=== PATIENT | male | born 1955 | race Caucasian/White ===

== ENCOUNTER 2018-12-11 18:55 | Emergency (ER) | payer OTHER, SELFPAY ==
[2018-12-11] VITALS (8 sets, daily range): BP systolic 131–156; BP diastolic 76–83; PULSE 66–78; RESP 16–26; TEMP 37; O2SAT 95–99; BMI 30.9
--- NOTE | 2018-12-11 19:05 | RAD_ITS ---
STUDY: X-RAY - RIGHT SHOULDER REASON FOR EXAM: Male, 63 years old. Fall TECHNIQUE: 2 view(s) of the shoulder. COMPARISON: None. FINDINGS: There is anterior dislocation of the humeral head relative to the glenoid. There is no fracture. Hypertrophic changes are present at the acromioclavicular joint. There are no radiodense foreign bodies. RAD/Shoulder min 2 Views IMPRESSION: Anterior dislocation of the humeral head. No fracture. Electronically Signed: Benigno Chan, at 19:23 EDT Tel , Service support ,
--- NOTE | 2018-12-11 19:07 | ED.DCSUM_ITS ---
History of Present Illness Chief Complaint: Disclocation Informant: Patient Occurred: Today Mechanism/Context: Injury - Right shoulder, Fall Current Severity: Mild Maximum Severity: Severe Worsened by: Attempt to move right upper extremity Relieved by: Remaining still with right upper extremity adductor and internally rotated Associated Symptoms: Loss of Funtion. Negative for: Parasthesia, Weakness Tetanus Immunization: 5-10 years Prior similar symptoms: No Recent Illness/Hospitalization: No - Past Medical History (1) No significant past medical history Status: Acute Past Medical History - Allergies and Home Meds Allergies/Adverse Reactions: Allergies No Known Allergies Allergy (Verified 12/11/18 18:55) Primary Care Physician: Juliet Woods MD [Primary Care Provider] - Ricci Junior DO [STAFF PHYSICIAN] - 5-7 Days Prior records reviewed: No Past Medical History: None Surgical History: no surgical history Lives: Spouse/ Significant Other Smoking Status: Never smoker Alcohol: None Drugs: None Review of Systems General: Denies: Chills, Fever, Sweats Eyes: Denies: Visual changes - bilaterally, Blurred Vision - bilaterally, Diplopia ENT: Denies: Rhinorrhea, Sore throat Cardiovascular: Denies: Chest pain, Palpitations, Heart racing Respiratory: Denies: Dyspnea, Cough, Dyspnea on exertion Gastrointestinal: Denies: Abdominal pain, Nausea, Vomiting, Diarrhea, Melena, Hematochezia Genitourinary: Denies: Dysuria, Hematuria, Frequency Musculoskeletal: Reports: Swelling, Extremity Pain. Denies: Myalgias, Arthralgias, Neck pain, Back pain Skin: Denies: Rash, Abrasions, Wounds Neurological: Denies: Headache, Weakness, Numbness Hematologic: Denies: Easy bruising, Easy bleeding Allergy: Denies: Uticaria, Swelling of the mouth, Swelling of the tongue Physical Exam Vital Signs/Narrative: Vital Signs Temp Pulse Resp BP Pulse Ox 12/11/18 18:58 156/81 H 12/11/18 18:56 98.6 F 69 16 98 Right Shoulder: Deformity, Limited ROM, - - Empty glenoid fossa.. Negative for: Abrasion, Contusion, Edema, Hematoma Left Shoulder: Negative for: Abrasion, Contusion, Deformity, Edema, Hematoma, Li mited ROM, - Right Humerus: Negative for: Abrasion, Contusion, Deformity, Edema, Hematoma, Limited ROM, - Left Humerus: Negative for: Abrasion, Contusion, Deformity, Edema, Hematoma, Limited ROM, - Right Elbow: Negative for: Abrasion, Contusion, Deformity, Edema, Hematoma, Limited ROM, - - There is no pain the patient over the lateral medial malleolus. There is no pain the patient over the olecranon process. Right Forearm: Negative for: Abrasion, Contusion, Deformity, Edema, Hematoma, Limited ROM, - Right Wrist: Negative for: Abrasion, Contusion, Deformity, Edema, Hematoma, Limited ROM, - Right Hand: Negative for: Abrasion, Contusion, Deformity, Edema, Hematoma, Limited ROM, - Right Finger: Negative for: Abrasion, Contusion, Deformity, Edema, Hematoma, Limited ROM, - General: Well nourished, Well developed Head: Normocephalic, Atraumatic. Negative for: Tenderness Eyes: Perrl, EOMI. Negative for: Pale conjunctiva, Scleral icterus, - ENT: No Trauma, Moist Mucous Membranes Neck: Nontender, Full ROM. Negative for: Spinal Tenderness, Paraspinal Tenderness Cardiovascular: Regular rate, Regular rhythm, No murmurs Respiratory: No distress, CTA bilaterally, Chest nontender Abdomen: Soft, Nontender, Nondistended, Normal bowel sounds Back: Nontender Skin: Normal color, No rash, No Trauma. Negative for: Cyanosis, Diaphoresis, Jaundice Neurological: Alert, Oriented x3, Cranial nerves II-XII grossly intact, Normal Strength, Normal Sensation, - - Sclerae, median, radial and ulnar function intact Psychological: Normal affect Diagnostic/Tx/Re-eval Chest X-Ray - ED: 2 View, Read by ED Physician, - - 2 view x-ray of the right shoulder reveals an anterior subcoracoid dislocation without evidence of fracture. There is arthritic changes of the AC joint. There is no widening of the AC joint nor is her fracture. 2 view postreduction x-ray of right shoulder reveals successful reduction. - Medical Decision Making She with deformity to right shoulder consistent with dislocation. No neurovascular findings. Patient did have something to drink at 1800. Patient was informed clinically his shoulder dislocated and will need reduction. He denies history of allergy to soy products or egg products. No history of sleep apnea. Patient was informed risk benefits of procedural sedation using propofol. He was informed he is at increased risk for nausea and vomiting however his shoulder needs to be reduced. Will premedicate. We will have him sign consent form for deep sedation using propofol and reduction of left shoulder dislocation. X-ray was obtained to confirm suspicion and to rule out fracture. Procedures Procedure(s): Patient was consented for deep procedural sedation with propofol. Patient states he received propofol for his colonoscopy and he had no complications. He denies allergy to soy products or egg products. He also was informed that his shoulder was dislocated would require reduction. Traction countertraction technique was used. Timeout was called. Patient did not de saturate during administration of propofol. He received a total of 150 mg. Once patient was sedated using traction countertraction technique the right anterior subcoracoid dislocation was reduced easily. Total time 2 minutes. He was observed in additional 3 minutes. He was placed in a sling and swath. Postreduction film was ordered. ED Disposition - Plan for ED Patient: Disposition: Home or Assisted Living Diagnosis: Closed anterior dislocation of right shoulder Instructions: DISLOCATION: SHOULDER (Reduced) Prescriptions: Hydrocodone Bitart/Apap 5-325 [Salome 5MG-325MG] 1 tab PO Q6H PRN PRN 3 Days #10 tab PRN Reason: Pain Prescription Printed Referrals: Juliet Woods MD [Primary Care Provider] - Ricci Junior DO [STAFF PHYSICIAN] - 5-7 Days Additional Instructions: There may be an associated rotator cuff tear. You were referred to orthopedics for follow-up.
[2018-12-11] MEDS: Ondansetron 4 MG/2 ML Vial IV (19:18)
[2018-12-11] MEDS: Propofol 200 MG/20 ML Vial IV BOLUS (19:21)
--- NOTE | 2018-12-11 19:37 | RAD_ITS ---
STUDY: X-RAY - RIGHT SHOULDER REASON FOR EXAM: Male, 63 years old. Post reduction TECHNIQUE: 2 view(s) of the shoulder. COMPARISON: X-ray right shoulder early the same day FINDINGS: There has been interval successful reduction of the glenohumeral joint. There is no acute fracture. Degenerative changes are present at the acromioclavicular joint. RAD/Shoulder min 2 Views IMPRESSION: Successful reduction of shoulder dislocation. Electronically Signed: Benigno Chan, at 19:59 EDT Tel , Service support ,
== END 2018-12-11 20:05 | disposition home or self-care (01) ==
PROVIDERS: Emergency Provider Emergency Medicine; Family Provider Family Medicine; PCP Family Medicine
DX: S43.014A Anterior dislocation of right humerus, initial encounter (principal); W19.XXXA Unspecified fall, initial encounter; Y93.9 Activity, unspecified
CPT/HCPCS: 23650; 73030; 96374; 99285; J7030; A4216; J2405

== ENCOUNTER → 2018-12-29 | Outpatient (CLI) | payer OTHER, SELFPAY ==
[2018-12-17 08:05] VITALS: BMI 30.9
--- NOTE | 2018-12-29 07:07 | MRI_ITS ---
STUDY: MRI RIGHT SHOULDER REASON FOR EXAM: Male, 63 years old. Shoulder pain, prior dislocation TECHNIQUE: Standardized fat and water weighted pulse sequences were obtained in all 3 orthogonal planes. COMPARISON: Radiographs 12/11/2018 FINDINGS: There is elevation of the humeral head in relationship to the acromion. There is joint effusion. There is focal increased T2 signal within the distal supraspinatus tendon without retraction. There may be a few posterior fibers still intact. There is increased T2 signal within the infraspinatus tendon without retraction.. The subscapularis tendon is intact. There is mild increased T2 signal within the adjacent soft tissues. There is deformity of anterior superior and anterior inferior labrum. There is irregularity of the anterior inferior glenoid cortex secondary to fracture, there is edema with increased T2 signal within the inferior glenoid. This represents a Bankart lesion. There is diffuse marrow edema with increased T2 signal within the humeral head with Hill-Sachs deformity. The edema extends inferiorly into the proximal diaphysis of the humerus. There is fluid within the bicipital tendon sheath. The bicipital tendon is likely intact.. There is mild AC joint osteoarthrosis. Tiny bony density adjacent to the distal clavicle degenerative or old trauma. There is compression on the supraspinatus muscle and tendon. 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
== END | disposition home or self-care (01) ==
LOC: MRI 07:06
PROVIDERS: Family Provider Family Medicine; PCP Family Medicine; Referring Provider Orthopaedic Surgery; Visit Provider Orthopaedic Surgery
DX: S43.004A Unspecified dislocation of right shoulder joint, initial encounter (principal)
CPT/HCPCS: 73221

== ENCOUNTER 2019-04-04 18:00 | Outpatient (RCR) | payer OTHER, SELFPAY ==
[2019-01-04 07:53] VITALS: BMI 30.9
--- NOTE | 2019-01-07 09:59 | HP.PTEVAL_ITS ---
Patient's Visit Information CALEB MASSEY is a 63 year old M referred to Physical Therapy by Ricci Junior DO with a diagnosis of R shoulder partial rotator cuff tear and laberal tear. Date of Evaluation: 01/07/19 Physical Therapist: Abdelrahman Ocampo, PT, ATC - Visit Plan Frequency: 2-3x /Week Duration: 4-6 Weeks Plan: R shoulder strengthening (rotator cuff), scapular stab ex's, overhead gladys, UBE, and HEP - Subjective Findings: Pt reports he injured his R shoulder 3 weeks ago. Pt reprts he was walking his dogs when he fell and dislocated his R shoulder. Pt reports he had an MRI which revealed a partial tear in his rotator cuff and an anterior labral tear. Pt reports he has progressively improved since his date of injury. Pt notes his ROM is steadily improving, but his pain is still bad. Pt reports sleep difficulty secondary to pain. Pt is R hand dominant. Pt reports he still has difficulty with overhead reaching at this time. Pt reports he still has altered sensation in his R hand from the fall. 1/10 pain at rest, 6/10 pain at worst (sleep and overhead reaching). 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 - Pain R shoulder dislocation Pain Intensity (Out of 10): 1 Pain Intensity Range: 6 - Objective Neuro: B UE sensation is WNL to light touch. B bicepital reflex= 2/3. Palpation: No pain with light touch or notable deformity present at this time. ROM: L shoulder flex= 150, abd= 150, ER= 20, IR WNL; R shoulder flex= 125, abd= 85, ER= 10, IR WNL. MMT: L shoulder is 5/5 throughout. R shoulder is 3/5 in available range and is painful with all testing. - Goals Goal 1:: Decrease R shoulder pain x 50% to aid with sleep Goal Time Frame: 4-6 Weeks Goal 2:: Increase R shoulder strength x 1 grade to aid with work requirements Goal Time Frame: 4-6 Weeks Goal 3:: Increase R shoulder abduction and flexion ROM x 30 degrees to aid with overhead reaching Goal Time Frame: 4-6 Weeks Goal 4:: I with HEP Goal Time Frame: 4-6 Weeks - Rehabilitation Potential Physical Therapy Diagnosis: R shoulder pain, weakness, and limited ROM secondary to R rotator cuff tear and labral tear Rehabilitation Potential: Good - Anticipated Interventions Patient/Client Instruction: Educate patient on: Condition, Plan of Care For the Purpose of:: To improve self management Therapeutic Exercise to Include: Strength training, Endurance training, Postural training, Flexibilty training, Active ROM, Scapular Strength/Stabilization For the Purpose of:: To decrease pain, To increase ROM, To improve muscle performance and motor function Cryotherapy (ice pack, ice massage): Yes For the Purpose of:: To decrease pain Thank you for the opportunity to evaluate your patient. For Medicare and Medicare HMO plans, please review the plan of care and approve it. It will need to be FAXED BACK to us at [phone] for Medicare purposes. For Medicare only, by signing this I certify the plan of care. Please let me know if there are questions or concerns regarding this plan of care. Physician Signature: Date:
--- NOTE | 2019-02-07 17:55 | HP.PTREVAL ---
Ricci Junior, DO, It has been my pleasure to treat CALEB MASSEY over the last 7 visits for R shoulder partial rotator cuff tear and laberal tear. Please see the progress note below for an update on the physical therapy plan of care! Subjective: Pt reports no pain at rest today. 9/10 when pain is at its worst Objective/Function: R shoulder pain ranges 0-9/10. R shoulder MMT: 3+/5 in available range. R shoulder ROM: flex= 135, abd= 105, ER= 107, IR WNL. Pt is I with HEP. Rx goals were partially achieved Plan Plan: Discontinue or continue pending visit next week. Goals Goal 1:: Decrease R shoulder pain x 50% to aid with sleep Goal Time Frame: 4-6 Weeks Goal Progress: Goal Met Goal 2:: Increase R shoulder strength x 1 grade to aid with work requirements Goal Time Frame: 4-6 Weeks Goal Progress: Progressing Goal 3:: Increase R shoulder abduction and flexion ROM x 30 degrees to aid with overhead reaching Goal Time Frame: 4-6 Weeks Goal Progress: Progressing Goal 4:: I with HEP Goal Time Frame: 4-6 Weeks Goal Progress: Goal Met Anticipated Interventions Patient/Client Instruction: Educate patient on: Condition, Plan of Care For the Purpose of:: To improve self management Therapeutic Exercise to Include: Strength training, Endurance training, Postural training, Flexibilty training, Active ROM, Scapular Strength/Stabilization For the Purpose of:: To decrease pain, To increase ROM, To improve muscle performance and motor function Cryotherapy (ice pack, ice massage): Yes For the Purpose of:: To decrease pain Please do not hesitate to contact me at [phone] by phone or if you have questions or concerns regarding this new plan of care! Sincerely, Abdelrahman Ocampo, PT, ATC
--- NOTE | 2019-04-04 18:21 | HP.PTDCSUM ---
HP - PT D/C Summary It has been my pleasure to treat CALEB MASSEY under orders from Ricci Junior DO, for the diagnosis of R shoulder partial rotator cuff tear and laberal tear for a total of 16 visit(s). Discharge Date: Please see the following information for a summary of their discharge status. - Subjective Subjective: intermittent pain now. When it comes, it doesnt last as long - Pain R shoulder dislocation Pain Intensity (Out of 10): 0 - Overall Improvement % Improvement: 70 - Objective Objective/Function: R shoulder pain ranges now from 0-3/10. R shoulder ROM: flex= 135, abd= 125, ER= 45. R shoulder MMT: 5/5 throughout with exception to ER= 4/5. I with HEP. Rx goals achieved - Goals Goal 1:: Decrease R shoulder pain x 50% to aid with sleep Goal Progress: Goal Met Goal 2:: Increase R shoulder strength x 1 grade to aid with work requirements Goal Progress: Progressing Goal 3:: Increase R shoulder abduction and flexion ROM x 30 degrees to aid with overhead reaching Goal Progress: Progressing Goal 4:: I with HEP Goal Progress: Goal Met - Plan Plan: Discharge - D/C Information If there are questions or concerns regarding this patient's physical therapy, please feel free to call me at [phone]. Thank you for the referral of this patient. Sincerely, Abdelrahman Ocampo, PT, ATC
== END 2019-04-04 19:00 | disposition home or self-care (01) ==
LOC: PT 18:00
PROVIDERS: Family Provider Family Medicine; PCP Family Medicine; Referring Provider Orthopaedic Surgery; Visit Provider Orthopaedic Surgery
DX: M75.110 Incomplete rotator cuff tear or rupture of unspecified shoulder, not specified as traumatic (principal); S43.006D Unspecified dislocation of unspecified shoulder joint, subsequent encounter; S43.499D Other sprain of unspecified shoulder joint, subsequent encounter
CPT/HCPCS: 97110; 97161; 97530

== ENCOUNTER 2020-07-14 09:28 | Outpatient (RCR) | payer OTHER, SELFPAY ==
[2019-04-05 08:08] VITALS: BMI 30.9
[2020-07-14] MEDS: COVID-19 VACC, MRNA(PFIZER)/PF 30 MCG/0.3 ML SYRINGE IM (09:27)
[2020-08-04] MEDS: COVID-19 VACC, MRNA(PFIZER)/PF 30 MCG/0.3 ML SYRINGE IM (09:19)
== END 2020-10-06 23:59 ==
LOC: IMMUN 09:28
PROVIDERS: PCP Family Medicine; Visit Provider Family Medicine
DX: Z23 Encounter for immunization (principal)
CPT/HCPCS: 0001A; 0002A; 91300

== ENCOUNTER → 2023-02-18 | Outpatient (CLI) | payer MEDICARE, OTHER, SELFPAY ==
[2023-02-18 09:08] LABS: Cholesterol 297 mg/dL (200); High Density Lipoprotein 57 mg/dL; PSA,Total - Annual Screen 1.52 ng/mL (0.00-4.00); Triglycerides 83 mg/dL; Very Low Density Lipoprotein 17 mg/dL (5-40)
== END | disposition home or self-care (01) ==
PROVIDERS: PCP Family Medicine; Referring Provider Family Medicine; Visit Provider Family Medicine
DX: Z00.00 Encounter for general adult medical examination without abnormal findings (principal); E78.00 Pure hypercholesterolemia, unspecified
CPT/HCPCS: 36415; 80061; 84153; G0103

== ENCOUNTER → 2023-03-18 | Outpatient (CLI) | payer MEDICARE, OTHER, SELFPAY ==
[2023-03-18 10:06] LABS: Anion Gap 1 (5-15); BUN 20 mg/dL (7-18); BUN/Creat Ratio 20.3 RATIO (10-20); Calcium,Total 8.5 mg/dL (8.5-10.1); Chloride 107 mmol/L (98-107); Creatinine, Serum 0.98 mg/dL (0.70-1.30); EST Glomerular Filtration Rate 81 mL/min (>60); Est Glom Filt Rate - Afr Amer 98 mL/min (>60); Glucose 94 mg/dL (74-106); Potassium 4.7 mmol/L (3.5-5.1); Sodium Level 138 mmol/L (136-145)
[2023-03-18 10:10] LABS: Hemoglobin A1c 5.3 % (3.8-5.6)
== END | disposition home or self-care (01) ==
LOC: LAB 08:58
PROVIDERS: PCP Family Medicine; Visit Provider Family Medicine
DX: Z13.1 Encounter for screening for diabetes mellitus (principal)
CPT/HCPCS: 36415; 80048; 83036

== ENCOUNTER → 2024-07-30 | Outpatient (CLI) | payer MEDICARE, OTHER, SELFPAY ==
[2024-07-30 21:44] LABS: Cholesterol 265 mg/dL (<=200); High Density Lipoprotein 54 mg/dL; Low Density Lipoprotein Calc. 192 mg/dL; PSA,Total - Annual Screen 1.32 ng/mL (0.02-4.00); Triglycerides 93 mg/dL; Very Low Density Lipoprotein 19 mg/dL (5-40); cholesterol:hdl ratio screen 4.87
== END | disposition home or self-care (01) ==
LOC: MTLAB 14:21
PROVIDERS: PCP Family Medicine; Referring Provider Family Medicine; Visit Provider Family Medicine
DX: E78.00 Pure hypercholesterolemia, unspecified (principal); Z12.5 Encounter for screening for malignant neoplasm of prostate
CPT/HCPCS: 36415; 80061; 84153; 84443; G0103

== ENCOUNTER → 2024-12-12 | Outpatient (CLI) | payer MEDICARE, OTHER, SELFPAY ==
[2024-12-12 18:06] LABS: Hematocrit 41.1 % (40-54); Hemoglobin 13.8 g/dL (13.0-16.5); Immature Granulocytes Count 0.030 X10^3/uL (0.0-0.0); Mean Corp Hgb Conc 33.6 g/dL (32-36); Mean Corpuscular Volume 91.5 fL (80-94); Mean Platelet Vol. 11.2 fl (6.2-12.0); NRBC Flagged by Analyzer 0 % (0-5); Platelet Count 266 K/mm3 (150-450); RBC Distribution Width CV 12.7 % (11.6-14.6); RBC Distribution Width SD 42.8 fl (35.1-43.9); Red Blood Count 4.49 M/mm3 (4.6-6.2); White Blood Count 6.6 K/mm3 (4.4-11.0)
[2024-12-12 18:28] LABS: AST(SGOT) 22 U/L (<=37); Alanine Aminotransfer ALT/SGPT 22 U/L (<=46); Albumin, Serum 4.3 g/dL (3.4-4.8); Alkaline Phosphatase 48 U/L (40-129); Anion Gap 13 (5-15); BUN 22 mg/dL (4-19); BUN/Creat Ratio 21.5 RATIO (10-20); Calcium,Total 9.4 mg/dL (7.6-11.0); Carbon Dioxide 22.9 mmol/L (21.0-32.0); Chloride 104 mmol/L (98-108); Globulin 2.8 g/dL (2.2-4.2); Glucose 94 mg/dL (70-99); Potassium 4.3 mmol/L (3.3-5.1)
[2024-12-12 18:49] LABS: Amylase 68 U/L (28-100); Lipase 38 U/L (13-75)
== END | disposition home or self-care (01) ==
LOC: MFPLAB 15:32
PROVIDERS: Visit Provider Family Medicine
DX: R10.9 Unspecified abdominal pain (principal)
CPT/HCPCS: 36415; 80053; 82150; 83690; 85025

== ENCOUNTER → 2024-12-23 | Outpatient (CLI) | payer MEDICARE, OTHER, SELFPAY ==
--- NOTE | 2024-12-23 17:26 | CT_ITS ---
PROCEDURE: ABDOMEN/PELVIS WITH CONTRAST 12/23/2024 REASON FOR EXAM: HERNIA TECHNIQUE: ABDOMEN/PELVIS WITH CONTRAST Coronal and Sagittal reconstruction series were provided. CONTRAST: Isovue-300 VOLUME: 100 mL One or more dose reduction techniques were used (e.g., Automated exposure control, adjustment of the mA and/or kV according to patient size, use of iterative reconstruction technique. RADIATION DOSE SUMMARY: CTDlvol: 13 mGy DLP: 1102 mGycm COMPARISON: None FINDINGS: Lung bases: The lung bases are clear. Liver: Normal size. No mass. Gallbladder: Gallbladder is contracted. Spleen: Normal size. Pancreas: Normal size without evidence of mass surrounding inflammation or ductal dilation. Adrenals: I suspect a 1.2 cm left adrenal adenoma. Kidneys: Cysts are seen in the anterior upper and midpole of the right kidney. The largest cyst measures 4.2 cm. Punctate nonobstructive calculus in the mid anterior pole of the left kidney. Bladder: Mild degree of diffuse bladder wall thickening. Central prostatic calcifications. Bowel: Colonic diverticulosis without diverticulitis. Appendix: The appendix is not identified. There is no inflammatory process identified in the right lower quadrant to suggest appendicitis. Lymph nodes: Unremarkable. Vasculature: Mild diffuse atherosclerotic calcifications are noted. Peritoneum / Retroperitoneum: Bilateral inguinal hernias containing fat slightly larger on the left side. Bones: Degenerative changes of the spine. CT/Abdomen/Pelvis WITH Contrast IMPRESSION: Bilateral inguinal hernias containing fat larger on the left side. Sigmoid diverticulosis. Mild degree of bladder wall thickening. Questionable 1.2 cm left adrenal adenoma. Right renal cysts. Tiny nonobstructive left intrarenal calculus. Reading Location: [id number]
== END | disposition home or self-care (01) ==
LOC: CT 17:25
PROVIDERS: PCP Family Medicine; Referring Provider Family Medicine; Visit Provider Family Medicine
DX: K42.9 Umbilical hernia without obstruction or gangrene (principal)
CPT/HCPCS: 74177; Q9967

== ENCOUNTER 2025-01-13 07:12 | Day surgery (SDC) | payer MEDICARE, OTHER, SELFPAY ==
--- NOTE | 2025-01-01 06:35 | EKG12_ITS ---
Test Reason : PREOP Blood Pressure : */* mmHG Vent. Rate : 61 BPM Atrial Rate : 61 BPM P-R Int : 146 ms QRS Dur : 92 ms QT Int : 414 ms P-R-T Axes : 37 -33 34 degrees QTcB Int : 416 ms Normal sinus rhythm Left axis deviation Abnormal ECG Confirmed by Uziel Alvarado ([id number]), photo editor OLIVA POZO ([id number]) on 01/01/2025 1:19:16 PM Referred By: Ganesh Watkins Confirmed By: Uziel Alvarado
--- NOTE | 2025-01-01 09:03 | PAT.ANE_ITS ---
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 When Was Last Pacemaker Check QUESTION #4 FULL TEXT: You/Your Family Experience fever (hyperthermia) with Anesthesia Last Oral Intake Last Oral intake: Last Oral Intake NPO since Meds taken in AM with sips of water? Meds patient instructed to take am of surgery PONV PONV - machine fur cleaner: PONV - machine fur cleaner Female No 12/27/24 14:58 HX of Motion Sickness No 12/27/24 14:58 HX of N/V After Surgery No 12/27/24 14:58 Non-Smoker Yes 12/27/24 14:58 Duration of Surgery greater Yes 12/27/24 14:58 than 60 minutes Number of Risk Factors 2 12/27/24 14:58 PONV Score Moderate Risk 12/27/24 14:58 Height & Weight Height & Weight: Anesthesia: Height & Weight Height 5 ft 8 in 12/25/24 07:59 Respiratory Assessment Respiratory Assessment - machine fur cleaner: Respiratory Tract Infection Hx - machine fur cleaner Hx Respiratory Tract Infection No 12/27/24 14:58 STOP Sleep Apnea STOP Sleep Apnea - machine fur cleaner: STOP Sleep Apnea - machine fur cleaner Hx Hypertension No 12/27/24 14:58 Hx Sleep Apnea No 12/27/24 14:58 CPAP BIPAP Do you snore loudly (louder Yes 12/27/24 14:58 than talking or can be heard Do you often feel tired/ No 12/27/24 14:58 fatigued/ sleepy during daytime? Has anyone observed you stop Yes 12/27/24 14:58 breathing during sleep? STOP Results Positive 12/27/24 14:58 QUESTION #5 FULL TEXT : Do you snore loudly (louder than talking or can be heard through closed doors)? Tobacco Use History Tobacco Use History - machine fur cleaner: Tobacco Use History - machine fur cleaner Tobacco Use Smoking Status Never smoker 12/27/24 14:58 Hx Tobacco Use No 12/27/24 14:58 Years Smoking Packs Smoked per Day Smoking Cessation Date was within the last 15 years Hx Smoking Cessation Date Hx Smoking Cessation Counseling Hematologic Medial History Hematologic Hx - machine fur cleaner: Hematologic Medical Hx - vp of technology Hx of Blood Transfusion No 12/27/24 14:58 Hx of Transfusion in last 3 No 12/27/24 14:58 Months Date of Last Transfusion (if within last 3 months) Ever experience any problems No 12/27/24 14:58 with transfusion(s)? Specify any problems Hx of Preganancy in last 3 N/A 12/27/24 14:58 Months Nurse Filling Out Transfusion BAMBI 12/27/24 14:58 & Questions: Date: 12/27/24 12/27/24 14:58 Time: 15:00 12/27/24 14:58 Patient unable to answer at this time (ie. confused, unrespo /Reproduction History /Reproductive History - machine fur cleaner: /Reproductive Hx- machine fur cleaner Hx Now No 12/27/24 14:58 Gestational Age (in weeks): EDC: Hx Hx Para Hx [facility]24 [facility] History (Updated 12/27/24 @ 15:08 by Janay Burris) Wears glasses Alcohol use Arthritis High cholesterol Restless legs History of diverticulosis Non-smoker Leg cramps History of stress test Left inguinal hernia Umbilical hernia Anxiety Home Medications ?Medication ?Instructions ?Recorded ?Last Taken ?Type multivitamin with folic acid 400 1 tab PO DAILY Unknown History mcg tablet coenzyme Q10 75 mg capsule (Ultra 75 mg PO QDAY 12/25/24 History CoQ10) lutein 20 mg capsule 20 mg PO QDAY 12/25/2412/25 History magnesium 200 mg tablet 200 mg PO QDAY 12/25/2411/30 History Allergy/AdvReac Type Severity Reaction Status Date / Time No Known Allergies Allergy Verified 12/27/24 14:54 Family History (Updated 12/25/24 @ 07:59 by Alexia Barraza) Mother Diabetes CAD (coronary artery disease) Grandfather Diabetes Surgical History (Updated 12/27/24 @ 14:58 by Janay Burris) History of colonoscopy Status post surgery Social History (Updated 12/25/24 @ 07:59 by Alexia Barraza) Smoking Status: Never smoker alcohol intake: current Audit: Pertinent Findings Pertinent Findings EKG Perinent findings: 01/01/25: Normal sinus rhythm Left axis deviation Abnormal ECG No previous ECGs available Recommendation Anesthesia Recommendation Anesthesia recommendation: OPTIMIZED for anesthesia
[2025-01-13] VITALS (8 sets, daily range): BP systolic 111–158; BP diastolic 68–82; PULSE 69–74; RESP 16; TEMP 36.3–37.1; O2SAT 97–100; BMI 29.3
--- OUTSIDE RECORDS SUMMARY | 2025-01-13 07:30 | XMS RPT_ITS | CCD ---
Author Organization [facility] Care Team Providers Care Granulizing Machine Operator Name Role Phone Peggy BRANTLEY, Dr. Juliet Almendarez Primary Care Provider Peggy BRANTLEY, Dr. Juliet Almendarez Attending Provider Peggy BRANTLEY, Dr. Jluiet Almendarez Referring Provider Cain Moore MD Attending Provider [phone] Cian Moore MD Primary Care Provider Oscar BRANTLEY, Cain Referring Provider Roland BRANTLEY, Dr. Andersen Attending Provider [phone] Cain Moore Attending Unavailable Ganesh Watkins Attending Unavailable Ganesh Watkins Referring Unavailable Cain Moore Primary Care Unavailable Ganesh Watkins Attending Unavailable Cain Moore Primary Care Unavailable Cain Moore Referring Unavailable Caleb Alvarado Attending Unavailable Ganesh Watkins Referring Unavailable Cain Moore Primary Care Unavailable Juliet Woods Primary Care Unavailable Juliet Woods Attending Unavailable Juliet Woods Referring Unavailable Cain Moore Primary Care Unavailable Cain Moore Attending Unavailable Cain Moore Referring Unavailable Medications Current Medications Medication Drug Class(es) Dates Sig (Normalized) Sig (Original) lutein 20 mg oral capsule (2 sources) Start: 12-25-2024 take 1 capsule by mouth once daily Lutein 20 mg capsule Active 20 mg PO daily December 25, 2024 12:00am give with meal/snack Magnesium (2 sources) Start: 12-25-2024 take 1 tablet by mouth once daily Magnesium 200 mg tablet Active 200 mg PO daily December 25, 2024 12:00am Multivitamin With Folic Acid (2 sources) Start: 12-11-2018 take 1 tablet by mouth once daily Multivitamin With Folic Acid Active 1 TABLET PO DAILY December 10, 2018 11:00pm Start: 12-11-2018 take 1 tablet by xiomy th once daily Multivitamin With Folic Acid Active 1 TABLET PO DAILY December 11, 2018 12:00am Multivitamin With Folic Acid 1 TABLET tablet (4 sources) Start: 12-11-2018 take 1 tablet by mouth once daily Multivitamin With Folic Acid 1 TABLET tablet Active 1 {tbl} PO DAILY December 11, 2018 12:00am ubidecarenone 75 mg oral capsule (2 sources) Start: 12-25-2024 Coenzyme Q10 ( Ultra Coq10) 75 mg capsule Active 75 mg PO daily December 25, 2024 12:00am Completed/Discontinued Medications Medication Drug Class(es) Dates Sig (Normalized) Sig (Original) acetaminophen 325 mg / HYDROcodone bitartrate 5 mg oral tablet (6 sources) Opioid Agonist Start: 12-11-2018 End: 12-15-2018 Hydrocodone-Acetami nophen 1 TABLET tablet Discontinued 1 {tbl} PO EVERY 6 HOURS NEEDED as needed for Pain 10 3 0 December 11, 2018 December 13, 2018 12:00am December 15, 2018 12:08am Closed anterior dislocation of right shoulder Anterior dislocation of right humerus, initial encounter Start: 12-11-2018 End: 12-15-2018 take 1 tablet by mouth every six hours as needed Hydrocodone-Acetaminophen Discontinued 1 TABLET PO EVERY 6 HOURS NEEDED 10 3 December 11, 2018 December 14, 2018 11:08pm loratadine 10 mg oral tablet (6 sources) Start: 12-11-2018 End: 12-25-2024 take 1 tablet by mouth once daily as needed Loratadine 10 MG tablet Discontinued 10 mg PO DAILY as needed for Allergies December 11, 2018 12:00am December 25, 2024 8:00am Problems Problem Classification Problem Date Documented Da te Episodic/Chronic Abdominal hernia (10 sources) Umbilical hernia; Translations: [Umbilical hernia without obstruction or gangrene] Onset: 12-25-2024 12-25-2024 Episodic Abdominal pain (1 source) Unspecified abdominal pain; Translations: [Unspecified abdominal pain] Onset: 12-16-2024 Episodic Anxiety disorders (2 sources) Anxiety; Translations: [Anxiety disorder, unspecified] 12-25-2024 Chronic Disorders of lipid metabolism (1 source) Pure hypercholesterolemi a, unspecified; Translations: [Pure hypercholesterolemi a, unspecified] Onset: 08-03-2024 Chronic Joint disorders and dislocations; trauma-related (6 sources) Anterior dislocation of shoulder joint; Translations: [Anterior dislocation of right humerus, initial encounter] 12-12-2018 Episodic Unclassified (6 sources) No history of clinical finding in subject; Translations: [No significant past medical history] 12-11-2018 Results Test Name Value Interpretation Reference Range Facility 12 Lead EKGon 01-01-2025 12 Lead EKG [facility] [address] [place] [address] 12 Lead EKG 01/01/25 0640 MR#: [id number] Acct: [id number] Name: CALEB MASSEY Rep #: [id number] : 1955 69 From: Caleb Alvarado MD Attending Dr: Dr. Ganesh Watkins MD Status: PRE [facility] Ordering Dr: Jaskaran Thompson MD Date: 01/01/25 Location: [facility] Sex: M C Admitted: Test Reason : PREOP Blood Pressure : */* mmHG Vent. Rate : 61 BPM Atrial Rate : 61 BPM P-R Int : 146 ms QRS Dur : 92 ms QT Int : 414 ms P-R-T Axes : 37 -33 34 degrees QTcB Int : 416 ms Normal sinus rhythm Left axis deviation Abnormal ECG Confirmed by Caleb Alvarado ([id number]), graphics editor OLIVA POZO ([id number]) on 01/01/2025 1:19:16 PM Referred By: Ganesh Watkins Confirmed By: Caleb Alvarado 01/01/25 1319 Date Caleb Alvarado MD CC: Dr. Ganesh Watkins MD; Dr. Jaskaran Thompson MD; Dr. Cain Moore MD Signed [facility] MR/PAT.Mk 01-01-2025 MR/PAT.[facility] Medical Records Department [address] [place] [address] PAT - Anesthesia 01/01/25 0903 MR#: [id number] Acct: [id number] Name: CALEB MASSEY Rep #: [id number] : 1955 69 From: Jaskaran Thompson MD PCP: Dr. Cain Moore MD Status:PRE [facility] Y Race: C Location: [facility] Pre-Assessment Diagnosis/Proposed Procedure Planned Operative Procedure(s): (L) Lap Robotic Left Inguinal Hernia w/mesh poss bilateral open umbilical hernia Anesthesia History Anesthesia History - shoe caser: Anesthesia History - shoe caser Hx Hospitalization No 12/27/24 14:58 Any Problems With Anesthesia No 12/27/24 14:58 Cholinesterase deficiency No 12/27/24 14:58 You/Your Family Experience No 12/27/24 14:58 fever (hyperthermia) with Relationship Recent Exposure to Contagious Disease Does patient have nerve No 12/27/24 14:58 stimulator Patient instructed to have device shut off --Does patient have Pacemaker or ICD? When Was Last Pacemaker Check QUESTION #4 FULL TEXT: You/Your Family Experience fever (hyperthermia) with Anesthesia Last Oral Intake Last Oral intake: Last Oral Intake NPO since Meds taken in AM with sips of water? Meds patient instructed to take am of surgery PONV PONV - shoe caser: PONV - shoe caser Female No 12/27/24 14:58 HX of Motion Sickness No 12/27/24 14:58 HX of N/V After Surgery No 12/27/24 14:58 Non-Smoker Yes 12/27/24 14:58 Duration of Surgery greater Yes 12/27/24 14:58 than 60 minutes Number of Risk Factors 2 12/27/24 14:58 PONV Score Moderate Risk 12/27/24 14:58 Height Weight Height Weight: Anesthesia: Height Weight Height 5 ft 8 in 12/25/24 07:59 Respiratory Assessment Respiratory Assessment - shoe caser: Respiratory Tract Infection Hx - shoe caser Hx Respiratory Tract Infection No 12/27/24 14:58 STOP Sleep Apnea STOP Sleep Apnea - shoe caser: STOP Sleep Apnea - shoe caser Hx Hypertension No 12/27/24 14:58 Hx Sleep Apnea No 12/27/24 14:58 CPAP BIPAP Do you snore loudly (louder Yes 12/27/24 14:58 than talking or can be heard Do you often feel tired/ No 12/27/24 14:58 fatigued/ sleepy during daytime? Has anyone observed you stop Yes 12/27/24 14:58 breathing during sleep? STOP Results Positive 12/27/24 14:58 QUESTION #5 FULL TEXT : Do you snore loudly (louder than talking or can be heard through closed doors)? Tobacco Use History Tobacco Use History - shoe caser: Tobacco Use History - shoe caser Tobacco Use Smoking Status Never smoker 12/27/24 14:58 Hx Tobacco Use No 12/27/24 14:58 Years Smoking Packs Smoked per Day Smoking Cessation Date was within the last 15 years Hx Smoking Cessation Date Hx Smoking Cessation Counseling Hematologic Medial History Hematologic Hx - shoe caser: Hematologic Medical Hx - fig washer Hx of Blood Transfusion No 12/27/24 14:58 Hx of Transfusion in last 3 No 12/27/24 14:58 Months Date of Last Transfusion (if within last 3 months) Ever experience any problems No 12/27/24 14:58 with transfusion(s)? Specify any problems Hx of Preganancy in last 3 N/A 12/27/24 14:58 Months Nurse Filling Out Transfusion BAMBI 12/27/24 14:58 Questions: Date: 12/27/24 12/27/24 14:58 Time: 15:00 12/27/24 14:58 Patient unable to answer at this time (ie. confused, unrespo /Reproduct ion History /Reproduct shagufta History - shoe caser: /Reproduct shagufta Hx- shoe caser Hx Now No 12/27/24 14:58 Gestational Age (in weeks): EDC: Hx Hx Para Hx Section SAB No 12/27/24 14:58 PFSH Medical History (Updated 12/27/24 @ 15:08 by Janay Burris) Wears glasses Alcohol use Arthritis High cholesterol Restless legs History of diverticulosis Non-smoker Leg cramps History of stress test Left inguinal hernia Umbilical hernia Anxiety Home Medications ???Medication ???Instructions ???Recorded ???Last Taken ???Type multivitamin with folic acid 400 1 tab PO DAILY 12/11/18 Unknown Hi story mcg tablet coenzyme Q10 75 mg capsule (Ultra 75 mg PO QDAY 12/25/24 12/25/24 H istory CoQ10) lutein 20 mg capsule 20 mg PO QDAY 12/25/24 12/25/24 Hi story magnesium 200 mg tablet 200 mg PO QDAY 12/25/24 12/25/24 H istory Allergy/AdvReac Type Severity Reaction Status Date / Time No Known Allergies Allergy Verified 12/27/24 14:54 Family History (Updated 12/25/24 @ 07:59 by Alexia Barraza) Mother Diabetes CAD (coronary artery disease) Grandfather Di (more content not included)... Normal [facility] Surgery Visit Reporton 12-25 Surgery Visit Report [facility] [address] [place] [address] OFFICE VISIT Date of Service: 12/25/24 MR#: [id number] Acct: [id number] Name: CALEB MASSEY Rep #: [id number] : 1955 Provider: Dr. Ganesh daly MD Age/Sex: 69/M Location: [facility] Status: Signed Intake Vital Signs 12/25/24 07:59 Height 5 ft 8 in Weight: 180 lb BMI 27.3 BP 165/75 H Blood Pressure Location Rt brachial Position Sitting Respiration 16 Intake Visit Reasons: UMBILICAL HERNIA Chief Complaint: umbilical hernia Cylinder Dyer Required: No Is patient in pain?: No Allergies No Known Allergies Allergy (Verified 12/25/24 08:00) Medications ???Medication ???Instructions ???Recorded ???Confirmed ???Type multivitamin with folic acid 400 1 tab PO DAILY 12/11/18 01/04/19 H istory mcg tablet coenzyme Q10 75 mg capsule (Ultra 75 mg PO QDAY 12/25/24 12/25/24 H istory CoQ10) lutein 20 mg capsule 20 mg PO QDAY 12/25/24 12/25/24 Hi story magnesium 200 mg tablet 200 mg PO QDAY 12/25/24 12/25/24 H istory Have you fallen in the past year?: No PFSH Medical History (Updated 12/25/24 @ 07:53 by Alexia Barraza) Left inguinal hernia Umbilical hernia Anxiety Surgical History (Updated 12/25/24 @ 07:58 by Alexia Barraza) Status post surgery Family History (Updated 12/25/24 @ 07:59 by Alexia Barraza) Mother Diabetes CAD (coronary artery disease) Grandfather Diabetes Social History (Updated 12/25/24 @ 07:59 by Alexia Barraza) Smoking Status: Never smoker alcohol intake: current HPI HPI HPI: Patient is a 69-year-old male who comes in with a left inguinal hernia as well as an umbilical hernia. He reports that sneezing or coughing hurts his left groin. He does not have any symptoms from the umbilical hernia. ROS General General: No weight change, appetite, fatigue, colon cancer, breast cancer or weakness HEENT HEENT: No difficulty swallowing, eye injury, eye surgery, swollen glands or hoarseness Endo Endocrine: No thyroid disease, diabetes mellitus, thyroid cancer, Hair loss, heat intolerance or cold intolerance Skin Skin: No rash or changing moles Breast Breast: No left breast lump, right breast lump, nipple discharge, breast pain, abnormal mammogram, abnormal US or breast enlargement Musc Musculoskeletal: No back problems, arthritis, rheumatoid arthritis, gout or joint pain Cardio Cardiovascular: No murmur, pacemaker, heart disease, atrial fibrillation, high blood pressure, heart attack, heart stent, palpitations, shortness of breath with exertion or chest pain Psych Psychiatric: Yes anxiety; No depression or hearing voices Resp Respiratory: No shortness of breath, No sleep apnea, No cough, No COPD, No asthma, No emphysema and No wheezing Gastro Gastrointestinal: Yes abdominal pain, No nausea or vomiting, No diarrhea, No constipation, No blood in stool, No acid reflux, Yes hemorrhoids, No ulcers, No gallbladder problem and No black,tarry stools Ramirez Hematologic: No blood thinners, No blood disorders, No bleeding, No anemia and No blood clots Neuro Neurologic: No system reviewed and no additional complaints, except as documented, No as per HPI, No abnormal gait, No abnormal hearing, No abnormal movements, No abnormal speech, No behavioral kim es, No burning sensations, No confusion, No convulsions, No disequilibrium, No dizziness, No localized weakness, No frequent falls, No headache(s), No lack of coordination, No loss of vision, No memory loss, No numbness, No other visual disturbances, No radicular pain, No restless legs, No sensory deficit, No syncope, No tingling, No tremor(s), No weakness and No other Exam Const General: cooperative Orientation: alert and oriented x3 [facility] Head: normal to inspection Neck Neck: normal visual inspection and full ROM Chest Chest palpation inspection: normal inspection of the chest Resp Effort Inspection: normal respiratory effort Auscultation: clear to auscultation bilaterally Cardio Rate: regular rate Rhythm: regular rhythm GI Inspection: non-distended Palpation: soft, hernia indirect inguinal on the left and umbilical and nontender Skin General: no rashes or lesions noted Neuro General: patient alert and patient oriented x3 Extrem General: full ROM Psych Appearance: grossly normal Mental Status: mental status grossly normal Assessment and Plan Assessment and Plan (1) Left inguinal hernia: Status: Acute Plan: The patient has a left inguinal hernia which is reducible. I do feel a small hernia on the right as well. I discussed robotic assisted laparoscopic left inguinal hernia repair with mesh. I discussed the procedure as well as the risks including but not limited to bleeding, inf (more content not included)... Normal [facility] Abdomen/Pelvis WITH Contrast on 12-23-2024 Abdomen/Pelvis WITH Contrast [facility] Imaging Services [address] [place] [address] [id number] Abdomen/Pelvis WITH Contrast MR#: [id number] Acct: [id number] Name: CALEB MASSEY Rep #: [id number] : 1955 M 69 From: Jeremy yeung MD PCP: Dr. Cain Moore MD Status: REG CL Study: Abdomen/Pelvis WITH Contrast Date of Exam: Exam# [id number] Ordering Dr: Cain Moore MD PROCEDURE: ABDOMEN/PELVIS WITH CONTRAST 12/23/2024 REASON FOR EXAM: HERNIA TECHNIQUE: ABDOMEN/PELVIS WITH CONTRAST Coronal and Sagittal reconstruction series were provided. CONTRAST: Isovue-300 VOLUME: 100 mL One or more dose reduction techniques were used (e.g., Automated exposure control, adjustment of the mA and/or kV according to patient size, use of iterative reconstruction technique. RADIATION DOSE SUMMARY: CTDlvol: 13 mGy DLP: 1102 mGycm COMPARISON: None FINDINGS: Lung bases: The lung bases are clear. Liver: Normal size. No mass. Gallbladder: Gallbladder is contracted. Spleen: Normal size. Pancreas: Normal size without evidence of mass surrounding inflammation or ductal dilation. Adrenals: I suspect a 1.2 cm left adrenal adenoma. Kidneys: Cysts are seen in the anterior upper and midpole of the right kidney. The largest cyst measures 4.2 cm. Punctate nonobstructive calculus in the mid anterior pole of the left kidney. Bladder: Mild degree of diffuse bladder wall thickening. Central prostatic calcifications. Bowel: Colonic diverticulosis without diverticulitis. Appendix: The appendix is not identified. There is no inflammatory process identified in the right lower quadrant to suggest appendicitis. Lymph nodes: Unremarkable. Vasculature: Mild diffuse atherosclerotic calcifications are noted. Peritoneum / Retroperitoneum: Bilateral inguinal hernias containing fat slightly larger on the left side. Bones: Degenerative changes of the spine. CT/Abdomen/Pelvis WITH Contrast IMPRESSION: Bilateral inguinal hernias containing fat larger on the left side. Sigmoid diverticulosis. Mild degree of bladder wall thickening. Questionable 1.2 cm left adrenal adenoma. Right renal cysts. Tiny nonobstructive left intrarenal calculus. Reading Location: [facility] CC: Dr. Cain Moore MD Mat Inspector: Signed Normal [facility] Absolute lymphocyte countOrd ered By: Cain Moore on 12-12-2024 Lymphocytes Auto (Unsp spec) [#/Vol] 1.17 10*3/uL 0.83-4.51 [facility] Absolute neutrophil countOrd ered By: Cain Moore on 12-12-2024 Neutrophils (Bld) [#/Vol] 4.7 10*3/uL 2.0-7.7 [facility] Amylaseon 12-12-2024 JULIET 68 U/L Normal 28-100 [facility] Comment on above: Performed By: #### L 501.2450, L100.0100, L501.2400, L500.4050 #### [facility] Laboratory [address] [place], [place], [id number] Anion gap in Serum or Plasma Ordered By: Cain Moore on 12-12-2024 Anion gap [Moles/Vol] 13 mmol/L 5-15 [facility] Automated lymphocyte count a s percentage of total leukocytesOrdered By: Cain Moore on 12-12-2024 Lymphocytes/100 WBC Auto (Unsp spec) 17.7 % Low 19-41 [facility] BUN/creatinine ratioOrdered By: Cain Moore on 12-12-2024 Urea nitrogen/Creatinine [Mass ratio] 21.5 mg/mg High 10-20 [facility] Basophil percentageOrdered B y: Cain Moore on 12-12-2024 Basophils/100 WBC (Bld) 0.3 % 0-1 [facility] Bilirubin, totalOrdered By: Cain Moore on 12-12-2024 Bilirubin [Mass/Vol] 0.88 mg/dL 0.00-1.30 [facility] CBC W/Diff, Automatedon 11-29-2024 Absolute Lymph 1.17 X10 3/uL Normal 0.83-4.51 [facility] Comment on above: Performed By: #### L 501.2450, L100.0100, L501.2400, L500.4050 #### [facility] [address] [place], [address] Absolute Neut 4.7 X10 3/uL Normal 2.0-7.7 [facility] Comment on above: Performed By: #### L 501.2450, L100.0100, L501.2400, L500.4050 #### [facility] [address] [place], [address] Basophils/100 WBC (Bld) 0.3 % Normal 0-1 [facility] Comment on above: Performed By: #### L 501.2450, L100.0100, L501.2400, L500.4050 #### [facility] [address] [place], [address] Eosinophils/100 WBC (Bld) 0.9 % Normal 0-5 [facility] Comment on above: Performed By: #### L 501.2450, L100.0100, L501.2400, L500.4050 #### [facility] [address] [place], [address] Erythrocyte distribution width (RBC) [Ratio] 12.7 % Normal 11.6-14.6 [facility] Comment on above: Performed By: #### L 501.2450, L100.0100, L501.2400, L500.4050 #### [facility] [address] [place], [address] Hematocrit (Bld) [Volume fraction] 41.1 % Normal 40-54 [facility] Comment on above: Performed By: #### L 501.2450, L100.0100, L501.2400, L500.4050 #### [facility] [address] [place], [address] Hemoglobin (Bld) [Mass/Vol] 13.8 g/dL Normal 13.0-16.5 [facility] Comment on above: Performed By: #### L 501.2450, L100.0100, L501.2400, L500.4050 #### [facility] [address] [place], [address] IG% 0.500 Normal 0.0-0.9 [facility] Comment on above: Result Comment: IG% - Immature Granulocytes (promyelocytes, myelocytes and metamyelocytes) > 1% indicates that a LEFT SHIFT is Present. Performed By: #### L 501.2450, L100.0100, L501.2400, L500.4050 #### [facility] [address] [place], [address] Lymphocytes/100 WBC (Bld) 17.7 % Low 19-41 [facility] Comment on above: Performed By: #### L 501.2450, L100.0100, L501.2400, L500.4050 #### [facility] [address] [place], [address] MCH (RBC) [Entitic mass] 30.7 pg Normal 27.0-32.0 [facility] Comment on above: Performed By: #### L 501.2450, L100.0100, L501.2400, L500.4050 #### [facility] [address] [place], [address] MCHC (RBC) [Mass/Vol] 33.6 g/dL Normal 32-36 [facility] Comment on above: Performed By: #### L 501.2450, L100.0100, L501.2400, L500.4050 #### [facility] [address] [place], [address] MCV (RBC) [Entitic vol] 91.5 fL Normal 80-94 [facility] Comment on above: Performed By: #### L 501.2450, L100.0100, L501.2400, L500.4050 #### [facility] [address] [place], [address] Monocytes/100 WBC (Bld) 9.1 % Normal 0-10 [facility] Comment on above: Performed By: #### L 501.2450, L100.0100, L501.2400, L500.4050 #### [facility] [address] [place], [address] Neutrophils/100 WBC (Bld) 71.5 % High 47-70 [facility] Comment on above: Performed By: #### L 501.2450, L100.0100, L501.2400, L500.4050 #### [facility] [address] [place], [address] Nucleated RBC (Bld) [#/Vol] 0 10*3/uL Normal 0-5 [facility] Comment on above: Performed By: #### L 501.2450, L100.0100, L501.2400, L500.4050 #### [facility] [address] [place], [address] Platelet mean volume (Bld) [Entitic vol] 11.2 fL Normal 6.2-12.0 [facility] Comment on above: Performed By: #### L 501.2450, L100.0100, L501.2400, L500.4050 #### [facility] [address] [place], [address] Platelets (Bld) [#/Vol] 266 10*3/uL Normal 150-450 [facility] Comment on above: Performed By: #### L 501.2450, L100.0100, L501.2400, L500.4050 #### [facility] [address] [place], [address] RBC (Bld) [#/Vol] 4.49 10*6/uL Low 4.6-6.2 [facility] Comment on above: Performed By: #### L 501.2450, L100.0100, L501.2400, L500.4050 #### [facility] [address] [place], [address] RDW SD 42.8 fl Normal 35.1-43.9 [facility] Comment on above: Performed By: #### L 501.2450, L100.0100, L501.2400, L500.4050 #### [facility] [address] [place], [address] WBC (Bld) [#/Vol] 6.6 10*3/uL Normal 4.4-11.0 [facility] Comment on above: Performed By: #### L 501.2450, L100.0100, L501.2400, L500.4050 #### [facility] [address] [place], [address] Carbon dioxide, total [Moles /volume] in Central venous bloodOrdered By: Cain Moore on 12-12-2024 CO2 [Moles/Vol] 22.9 mmol/L 21.0-32.0 [facility] Chloride assayOrdered By: Hugh Moore on 12-12-2024 Chloride [Moles/Vol] 104 mmol/L 98-108 [facility] Comprehensive Metabolic Prof ilon 12-12-2024 Albumin [Mass/Vol] 4.3 g/dL Normal 3.4-4.8 [facility] Comment on above: Performed By: #### L 501.2450, L100.0100, L501.2400, L500.4050 #### [facility] [address] [place], [address] Albumin/Globulin [Mass ratio] 1.5 {ratio} Normal 0.9-2.4 [facility] Comment on above: Performed By: #### L 501.2450, L100.0100, L501.2400, L500.4050 #### [facility] [address] [place], [address] ALK PHOS 48 U/L Normal 40-129 [facility] Comment on above: Performed By: #### L 501.2450, L100.0100, L501.2400, L500.4050 #### [facility] [address] [place], [address] ALT [Catalytic activity/Vol] 22 U/L Normal <=46 [facility] Comment on above: Performed By: #### L 501.2450, L100.0100, L501.2400, L500.4050 #### [facility] [address] [place], [address] AST [Catalytic activity/Vol] 22 U/L Normal <=37 [facility] Comment on above: Performed By: #### L 501.2450, L100.0100, L501.2400, L500.4050 #### [facility] [address] [place], [address] Bilirubin [Mass/Vol] 0.88 mg/dL Normal 0.00-1.30 [facility] Comment on above: Performed By: #### L 501.2450, L100.0100, L501.2400, L500.4050 #### [facility] [address] [place], [address] BUN/CRE 21.5 RATIO High 10-20 [facility] Comment on above: Performed By: #### L 501.2450, L100.0100, L501.2400, L500.4050 #### [facility] [address] [place], [address] Calcium [Mass/Vol] 9.4 mg/dL Normal 7.6-11.0 [facility] Comment on above: Performed By: #### L 501.2450, L100.0100, L501.2400, L500.4050 #### [facility] [address] [place], [address] Chloride [Moles/Vol] 104 mmol/L Normal 98-108 [facility] Comment on above: Performed By: #### L 501.2450, L100.0100, L501.2400, L500.4050 #### [facility] [address] [place], [address] CO2 [Moles/Vol] 22.9 mmol/L Normal 21.0-32.0 [facility] Comment on above: Performed By: #### L 501.2450, L100.0100, L501.2400, L500.4050 #### [facility] [address] [place], [address] Creatinine [Mass/Vol] 1.02 mg/dL Normal 0.70-1.20 [facility] Comment on above: Performed By: #### L 501.2450, L100.0100, L501.2400, L500.4050 #### [facility] [address] [place], [address] GAP 13 Normal 5-15 [facility] Comment on above: Performed By: #### L 501.2450, L100.0100, L501.2400, L500.4050 #### [facility] [address] [place], [address] GFR/1.73 sq M.predicted among non-blacks MDRD (S/P/Bld) [Vol rate/Area] 81 mL/min/{1.73_m2} Normal >60 [facility] Comment on above: Result Comment: mL/m in/1.73m2 CKD-EPI Creatinine Equation (2020) Performed By: #### L 501.2450, L100.0100, L501.2400, L500.4050 #### [facility] [address] [place], [address] Globulin (S) [Mass/Vol] 2.8 g/dL Normal 2.2-4.2 [facility] Comment on above: Performed By: #### L 501.2450, L100.0100, L501.2400, L500.4050 #### [facility] [address] [place], [address] Glucose [Mass/Vol] 94 mg/dL Normal 70-99 [facility] Comment on above: Performed By: #### L 501.2450, L100.0100, L501.2400, L500.4050 #### [facility] [address] [place], [address] Potassium [Moles/Vol] 4.3 mmol/L Normal 3.3-5.1 [facility] Comment on above: Performed By: #### L 501.2450, L100.0100, L501.2400, L500.4050 #### [facility] [address] [place], [address] Sodium [Moles/Vol] 139 mmol/L Normal 133-145 [facility] Comment on above: Performed By: #### L 501.2450, L100.0100, L501.2400, L500.4050 #### [facility] [address] [place], [address] T PROT 7.1 g/dL Normal 5.9-8.4 [facility] Comment on above: Performed By: #### L 501.2450, L100.0100, L501.2400, L500.4050 #### [facility] [address] [place], [address] Urea nitrogen [Mass/Vol] 22 mg/dL High 4-19 [facility] Comment on above: Performed By: #### L 501.2450, L100.0100, L501.2400, L500.4050 #### [facility] [address] [place], [address] Eosinophil percentageOrdered By: Cain Moore on 12-12-2024 Eosinophils/100 WBC (Bld) 0.9 % 0-5 [facility] Erythrocyte distribution wid th ratioOrdered By: Cain Moore on 12-12-2024 Erythrocyte distribution width (RBC) [Ratio] 12.7 % 11.6-14.6 [facility] Erythrocyte distribution wid th standard deviationOrdered By: Cain Oscar on 12-12-2024 Erythrocyte distribution width (RBC) [Ratio] 42.8 fl 35.1-43.9 [facility] Glomerular filtration rate ( GFR) estimation/1.73 sq m using serum, plasma, or whole bOrdered By: Cain Moore on 12-12-2024 GFR/1.73 sq M.predicted among non-blacks MDRD (S/P/Bld) [Vol rate/Area] 81 mL/min/{1.73_m2} >60 [facility] Comment on above: mL/min/1.73m2 CKD-EP I Creatinine Equation (2020) Hematocrit Auto (Bld) [Volum e fraction]Ordered By: Cain Moore on 12-12-2024 Hematocrit (Bld) [Volume fraction] 41.1 % 40-54 [facility] Hemoglobin measurementOrdere d By: Cain Moore on 12-12-2024 Hemoglobin (Bld) [Mass/Vol] 13.8 g/dL 13.0-16.5 [facility] Immature granulocytes/100 WB C Auto (Bld)Ordered By: Cain Moore on 12-12-2024 Immature granulocytes/100 WBC (Bld) 0.500 % 0.0-0.9 [facility] Comment on above: IG% - Immature Granu locytes (promyelocytes, myelocytes and metamyelocytes) > 1% indicates that a LEFT SHIFT is Present. Laboratory - Chemistry and C hemistry - challengeOrdered By: Cain Moore on 12-12-2024 AST [Catalytic activity/Vol] 22 U/L <38 [facility] Lipaseon 12-12-2024 Lipase [Catalytic activity/Vol] 38 U/L Normal 13-75 [facility] Comment on above: Result Comment: Kaitlin baker note: LIPASE revised reference range effective 22. New Lipase methodology. Expected to produce lower values than the previous assay method. NEW Reference Range: 13 - 75 U/L Performed By: #### L 501.2450, L100.0100, L501.2400, L500.4050 #### [facility] [address] [place], [address] Lipase measurementOrdered By : Cain Moore on 12-12-2024 Lipase [Catalytic activity/Vol] 38 U/L 13-75 [facility] Comment on above: Please note:LIPASE r evised reference range effective 22. New Lipase methodology. Expected to produce lower values than the previous assay method. NEW Reference Range: 13 - 75 U/L MCV (mean corpuscular volume ) determinationOrdered By: Cain Moore on 12-12-2024 MCV (RBC) [Entitic vol] 91.5 fL 80-94 [facility] Mean corpuscular hemoglobin (MCH) determinationOrdered By: Cain Moore on 12-12-2024 MCH (RBC) [Entitic mass] 30.7 pg 27.0-32.0 [facility] Mean corpuscular hemoglobin concentration (MCHC) determinationOrdered By: Cain Moore on 12-12-2024 MCHC (RBC) [Mass/Vol] 33.6 g/dL 32-36 [facility] Mean platelet volume determi nationOrdered By: Cain Oscar on 12-12-2024 Platelet mean volume (Bld) [Entitic vol] 11.2 fL 6.2-12.0 [facility] Monocyte percentageOrdered B y: Casson Oscar on 12-12-2024 Monocytes/100 WBC (Bld) 9.1 % 0-10 [facility] Neutrophil percentageOrdered By: Cain Oscar on 12-12-2024 Neutrophils/100 WBC (Bld) 71.5 % High 47-70 [facility] Nucleated red blood cell per centageOrdered By: Cain Oscar on 12-12-2024 Nucleated RBC/100 WBC (Bld) [Ratio] 0 % 0-5 [facility] Platelet countOrdered By: Hugh Moore on 12-12-2024 Platelets (Bld) [#/Vol] 266 10*3/uL 150-450 [facility] Potassium measurement (mass/ volume)Ordered By: Cain Moore on 12-12-2024 Potassium (Unsp spec) [Mass/Vol] 4.3 mmol/L 3.3-5.1 [facility] RBC Auto (Bld) [#/Vol]Ordere d By: Cain Moore on 12-12-2024 RBC (Bld) [#/Vol] 4.49 10*6/uL Low 4.6-6.2 [facility] Serum creatinine measurement (mass/volume)Ordered By: Cain Moore on 12-12-2024 Creatinine [Mass/Vol] 1.02 mg/dL 0.70-1.20 [facility] Serum globulin measurementOr dered By: Cain Moore on 12-12-2024 Globulin (S) [Mass/Vol] 2.8 g/dL 2.2-4.2 [facility] Serum glucose measurement (m ass/volume)Ordered By: Cain Moore on 12-12-2024 Glucose [Mass/Vol] 94 mg/dL 70-99 [facility] Serum or plasma alanine velarde otransferase (ALT) measurementOrdered By: Cain Moore on 12-12-2024 ALT [Catalytic activity/Vol] 22 U/L <47 [facility] Serum or plasma albumin cem urement (mass/volume)Ordered By: Cain Moore on 12-12-2024 Albumin [Mass/Vol] 4.3 g/dL 3.4-4.8 [facility] Serum or plasma albumin/glob ulin mass ratioOrdered By: Cain Moore on 12-12-2024 Albumin/Globulin [Mass ratio] 1.5 {ratio} 0.9-2.4 [facility] Serum or plasma alkaline agustin sphatase measurementOrdered By: Cain Moore on 12-12-2024 ALP [Catalytic activity/Vol] 48 U/L 40-129 [facility] Serum or plasma amylase cem urement (enzymatic activity/volume)Ordered By: Cain Moore on 12-12-2024 Amylase [Catalytic activity/Vol] 68 U/L 28-100 [facility] Serum or plasma calcium cem urement (mass/volume)Ordered By: Cain Moore on 12-12-2024 Calcium [Mass/Vol] 9.4 mg/dL 7.6-11.0 [facility] Serum or plasma urea nitroge n measurement (mass/volume)Ordered By: Cain Moore on 12-12-2024 Urea nitrogen [Mass/Vol] 22 mg/dL High 4-19 [facility] Sodium levelOrdered By: Cass Moore on 12-12-2024 Sodium [Moles/Vol] 139 mmol/L 133-145 [facility] Total proteinOrdered By: Erinn Moore on 12-12-2024 Protein [Mass/Vol] 7.1 g/dL 5.9-8.4 [facility] White blood cell (WBC) count Ordered By: Cain Moore on 12-12-2024 WBC (Bld) [#/Vol] 6.6 10*3/uL 4.4-11.0 [facility] Calculated very low density lipoprotein (VLDL) cholesterol measurementOrdered By: Juliet Woods on 07-30-2024 VLDL Cholesterol 19 mg/dL 5-40 [facility] LDL calc ser/plasOrdered By: Juliet Woods on 07-30-2024 LDL Cholesterol, Calculated 192 mg/dL [facility] Comment on above: Elscvsanof=556-005 m g/dL & Higher Iycn=652 mg/dL or greater Lipid Profileon 07-30-2024 CHOL:HDL 4.87 Normal [facility] Comment on above: Order Comment: Order Date: 07/30/24 Order Info: [id number] - LIPID Order Info: 3 - TSH Order Info: [id number] - PSA Performed By: #### L 500.4100, L501.9520, L501.9910 #### [facility] [address] [place], [place], [id number] ([address]) Cholesterol [Mass/Vol] 265 mg/dL High <=200 [facility] Comment on above: Order Comment: Order Date: 07/30/24 Order Info: [id number] - LIPID Order Info: 3 - TSH Order Info: [id number] - PSA Result Comment: Chol esterol level, Desirable <200 mg/dL Borderline high cholesterol 200-239 mg/dL High cholesterol >=240 mg/dL Recommendations of the NCEP Adult Treatment Panel for the following risk-cutoff thresholds for the [place] population. Performed By: #### L 500.4100, L501.9520, L501.9910 #### [facility] [address] [place], [place], [id number] Cholesterol in HDL [Mass/Vol] 54 mg/dL Normal [facility] Comment on above: Order Comment: Order Date: 07/30/24 Order Info: [id number] - LIPID Order Info: 63 - TSH Order Info: [id number] - PSA Result Comment: Yenny onal Cholesterol Education Program (NCEP) guidelines: <40 mg/dL: Low HDL-cholesterol (major risk factor for CHD) >= 60 mg/dL: High HDL-cholesterol (negative risk factor for CHD) HDL-cholesterol is affected by a number of factors, e.g. smoking, exercise, hormones, sex and age. Performed By: #### L 500.4100, L501.9520, L501.9910 #### [facility] [address] [place], [address] Cholesterol in LDL [Mass/Vol] 192 mg/dL Normal [facility] Comment on above: Order Comment: Order Date: 07/30/24 Order Info: [id number] - LIPID Order Info: 6-3 - TSH Order Info: [id number] - PSA Result Comment: Bord owtcaz=703-523 mg/dL Higher Kyjo=098 mg/dL or greater Performed By: #### L 500.4100, L501.9520, L501.9910 #### [facility] [address] [place], [address] Cholesterol in VLDL [Mass/Vol] 19 mg/dL Normal 5-40 [facility] Comment on above: Order Comment: Order Date: 07/30/24 Order Info: [id number] - LIPID Order Info: 3 - TSH Order Info: [id number] - PSA Performed By: #### L 500.4100, L501.9520, L501.9910 #### [facility] [address] [place], [address] Triglyceride [Mass/Vol] 93 mg/dL Normal [facility] Comment on above: Order Comment: Order Date: 07/30/24 Order Info: [id number] - LIPID Order Info: 6-3 - TSH Order Info: [id number] - PSA Result Comment: The drugs N-Acetylcysteine and Metamizole may falsely depress this assay. Normal range: <150 mg/dL Borderline High: 150-199 mg/dL High: 200-499 mg/dL Very High: >500 mg/dL Performed By: #### L 500.4100, L501.9520, L501.9910 #### [facility] [address] [place], [address] PSA, total screeningOrdered By: Juliet Woods on 07-30-2024 Prostate Specific Antigen Screen 1.32 ng/mL 0.02-4.00 [facility] Comment on above: This test was perfor med using the [employer] tPSA method. Measured values of a patient sample can vary depending on the testing procedure used. PSA values determined on patient samples by different testing procedures cannot be used interchangeably. If there is a change in PSA assays while monitoring therapy, sequential testing should be performed to confirm baseline values. PSA,Total - Annual Screenon 07-30-2024 PSA,TOT SCREEN 1.32 ng/mL Normal 0.02-4.00 [facility] Comment on above: Order Comment: Order Date: 07/30/24Order Info: [id number] - LIPIDOrder Info: [id number] - TSHOrder Info: [id number] - PSA Result Comment: This test was performed using the [employer] tPSA method. Measured values of a patient??sample can vary depending on the testing procedure used. PSA values determined on patient samples by different testing procedures cannot be used interchangeably. If there is a change in PSA assays while monitoring therapy, sequential testing should be performed to confirm baseline values. Performed By: #### L 500.4100, L501.9520, L501.9910 ####[facility] [id number] [place], [address] Screening total cholesterol/ high density lipoprotein (HDL) cholesterol ratioOrdered By: Juliet Woods on 07-30-2024 Cholesterol.total/Cholest adela in HDL [Mass ratio] 4.87 {ratio} [facility] Serum or plasma cholesterol in HDL measurement (mass/volume)Ordered By: Juliet Woods on 07-30-2024 Cholesterol in HDL [Mass/Vol] 54 mg/dL >40 [facility] Comment on above: National Cholesterol Education Program (NCEP) guidelines:<40 mg/dL: Low HDL-cholesterol (major risk factor for CHD)>= 60 mg/dL: High HDL-cholesterol (negative risk factor for CHD)HDL-cholesterol is affected by a number of factors, e.g. smoking, exercise, hormones, sex and age. Serum or plasma cholesterol measurement (mass/volume)Ordered By: Juliet Woods on 07-30-2024 Cholesterol [Mass/Vol] 265 mg/dL High <201 [facility] Comment on above: Cholesterol level, D esirable <200 mg/dLBorderline high cholesterol 200-239 mg/dLHigh cholesterol >=240 mg/dLRecommendations of the NCEP Adult Treatment Panel for the following risk-cutoff thresholds for the [place] population. TSH DL <= 0.005 mIU/L QnOrde red By: Juliet Woods on 07-30-2024 Thyroid Stimulating Hormone (TSH) 2.370 uIU/mL 0.300-4.200 [facility] Thyroid Stim Hormone (TSH)on 07-30-2024 TSH 2.370 uIU/mL Normal 0.300-4.200 [facility] Comment on above: Order Comment: Order Date: 07/30/24 Order Info: [id number] - LIPID Order Info: [id number] - TSH Order Info: [id number] - PSA Performed By: #### L 500.4100, L501.9520, L501.9910 #### [facility] [address] [place], [address] Triglycerides measurementOrd ered By: Juliet Woods on 07-30-2024 Triglyceride [Mass/Vol] 93 mg/dL <199 [facility] Comment on above: The drugs N-Acetylcy steine and Metamizole may falsely depress this assay. Normal range: <150 mg/dLBorderline High: 150-199 mg/dLHigh: 200-499 mg/dLVery High: >500 mg/dL Basophil percentageOrdered B y: Juliet Woods on 03-18-2023 Chloride [Moles/Vol] 107 mmol/L 98-107 [facility] Glucose [Mass/Vol] 94 mg/dL 74-106 [facility] Potassium [Moles/Vol] 4.7 mmol/L 3.5-5.1 [facility] Sodium [Moles/Vol] 138 mmol/L 136-145 [facility] Laboratory - Chemistry and C hemistry - challengeOrdered By: Juliet Woods on 03-18-2023 CO2 [Moles/Vol] 30.0 mmol/L 21.0-32.0 [facility] Urea nitrogen/Creatinine [Mass ratio] 20.3 mg/mg 10-20 [facility] No Panel InformationOrdered By: Juliet Woods on 03-18-2023 Estimated GFR (MDRD) Amer 98 mL/min >60 [facility] Comment on above: GFR Calc Estimated GFR (MDRD) Non-Af Amer 81 mL/min >60 [facility] Comment on above: Non- GFR Calc Serum or plasma calcium cem urement (mass/volume)Ordered By: Juliet Woods on 03-18-2023 Calcium [Mass/Vol] 8.5 mg/dL 8.5-10.1 [facility] Serum or plasma creatinine m easurement (mass/volume)Ordered By: Juliet Woods on 03-18-2023 Creatinine [Mass/Vol] 0.98 mg/dL 0.70-1.30 [facility] Comment on above: The validity of the calculated GFR & GFRAA in patients over 70 years has not been determined. Clinical correlation is essential. Serum or plasma urea nitroge n measurement (mass/volume)Ordered By: Juliet Woods on 03-18-2023 Urea nitrogen [Mass/Vol] 20 mg/dL 11-15 [facility] Thin prep Papanicolaou smear with manual screeningOrdered By: Juliet Woods on 03-18-2023 Thin prep Papanicolaou smear with manual screening 1 5- [facility] Whole blood hemoglobin A1c/t otal hemoglobin ratio (mass fraction)Ordered By: Juliet Woods on 03-18-2023 HbA1c (Bld) [Mass fraction] 5.3 % 3.8-5.6 [facility] Comment on above: Normal < 5.7 % Predi abetic 5.7 - 6.4 % Diabetic >or= 6.5 % Please note range changes. Basophil percentageOrdered B y: Juliet Woods on 02-18-2023 Cholesterol [Mass/Vol] 297 mg/dL <200 [facility] Comment on above: <200 mg/dL Desirable 200-240 mg/dL Borderline >240 mg/dL High Risk Triglyceride [Mass/Vol] 83 mg/dL <199 [facility] Comment on above: The drugs N-Acetylcy steine and Metamizole may falsely depress this assay.Serum Triglycerides Reference Interval Normal <150 mg/dL Borderline high 150 - 199 mg/dL High 200 - 499 mg/dL Very High > or = 500 mg/dL No Panel InformationOrdered By: Juliet Woods on 02-18-2023 Prostate Specific Antigen Screen 1.52 ng/mL 0.00-4.00 [facility] Comment on above: This test was perfor med using the TPSA assay method for [employer] system. Values obtained with differentassay methods cannot be used interchangably.When changing PSA assays in the course of monitoring apatient, additional sequential testing should be carriedout to confirm baseline values. Serum or plasma cholesterol in HDL measurement (mass/volume)Ordered By: Juliet Woods on 02-18-2023 Cholesterol in HDL [Mass/Vol] 57 mg/dL >40 [facility] Comment on above: The drugs N-Acetylcy steine and Metamizole may falsely depress this assay. Reference Range HDL <40 mg/dL Low HDL Cholesterol HDL >or= 60 mg/dL High HDL Cholesterol Serum or plasma cholesterol in VLDL measurement (mass/volume)Ordered By: Juliet Woods on 02-18-2023 Cholesterol in VLDL [Mass/Vol] 17 mg/dL 5-40 [facility] Serum or plasma low density lipoprotein (LDL) cholesterol measurement (mass/volume)Ordered By: Juliet Woods on 02-18-2023 Cholesterol in LDL [Mass/Vol] 223 mg/dL 0-130 [facility] Vital Signs Date Time Vital Sign Value Performing Clinician Will marlow 12-25-2024 07:59-0400 Body height 172.72 cm Cain Moore MD Work Phone: [facility] 12-25-2024 07:59-0400 Body mass index (BMI) [Ratio] 27.3 kg/m2 Cain Moore MD Work Phone: [facility] 12-25-2024 07:59-0400 Body weight 81.64 kg Cain Moore MD Work Phone: [facility] 12-25-2024 07:59-0400 Diastolic blood pressure 75 mm[Hg] Cain Moore MD Work Phone: [facility] 12-25-2024 07:59-0400 Respiratory rate 16 /min Cain Moore MD Work Phone: [facility] 12-25-2024 07:59-0400 Systolic blood pressure 165 mm[Hg] Cain Moore MD Work Phone: [facility] Encounters Encounter Date Encounter Type Care Provider Facility Start: 01-13-2025 ambulatory Ganesh Solis lity:[facility] Start: 01-10-2025 Encounter for other preprocedural examination Ganesh Watkins [facility] Start: 01-01-2025 ambulatory [facility] Facility :[facility] Start: 12-25-2024 End: 12-25-[address] Ganesh Watkins MD -[facility] Work Phone: Start: 12-25-2024 End: 12-25-2024 ambulatory Cain Moore MD Work Phone: -[facility] Start: 12-23-2024 End: 12-23-2024 ambulatory Cain Moore MD Work Phone: -[facility] Start: 12-23-2024 End: 12-23-[address] Cain Moore MD -[facility] Work Phone: Start: 12-23-2024 End: [facility] Start: 12-12-2024 End: 12-12-2024 ambulatory Cain Moore MD Work Phone: -[facility] Start: 12-12-2024 End: 12-12-[address] Cain Moore MD -[facility] Start: 12-12-2024 End: 12-12-2024 ambulatory Cain Moore Facility:[facility] Start: 07-30-2024 End: 07-30-[address] Juliet oWods MD Work Phone: [facility] Work Phone: Start: 07-30-2024 End: 07-30-2024 Patient encounter procedure Dr. Juliet Woods MD -Laboratory, [place] Work Phone: Start: 07-30-2024 End: 07-30-2024 ambulatory Juliet Woods Facility:[facility] Start: 03-18-2023 End: 03-18-2023 ambulatory [facility] Work Phone: Start: 03-18-2023 End: 03-18-2023 Patient encounter procedure [facility] Work Phone: Start: 02-18-2023 End: 02-18-2023 ambulatory [facility] Work Phone: Start: 02-18-2023 End: 02-18-2023 Patient encounter procedure [facility] Work Phone: Procedures Date Procedure Procedure Detail Performing Clinician Start: 12-23-2024 Computed tomography of abdomen and pelvis with contrast Cain Moore MD Work Phone: Plan of Treatment Date Care Activity Detail Author Start: 12-23-2024 Computed tomography of abdomen and pelvis with contrast Abdomen/Pelvis WITH Contrast [facility] Immunizations Immunization Date Immunization Notes Care Provider Fa cility 08-04-2020 Covid (Pfizer) [facility] 07-14-2020 Covid (Pfizer) [facility] Payers Date Payer Category Payer Medicare [id number] 2024 Self-pay [id number] 2024 Unknown [id number] Unknown [id number] Unknown [id number] 2.16.8 [id number] Unknown [id number] 2.16.8 [id number] Unknown [id number] 2.16.8 [id number] Unknown [id number] 2.16.8 [id number] Unknown [id number] 2.16.8 [id number] Unknown [id number] 2.16.8 [id number] Social History Date Type Detail Facility Start: 04-05-2019 End: 04-05-2019 Tobacco smoking status RIIS Unknown if ever smoked [facility] Start: 12-11-[address] [facility] Start: 12-11-2018 Spouse/ Signif icant Other [facility] Start: 1955 Sex Assigned At Male [facility] Start: 04-05-2019 End: 12-25-2024 Tobacco smoking status NHIS Never smoked tobacco (finding) [facility] Start: 08-03-2024 Sex Male (finding) [facility] Evaluation note 12-25-2024 Note Date & Type Note Facility 12-25-2024 Evaluation note Diagnosis Onset Date Resolution Left inguinal hernia acute 2024 7:14am Umbilical hernia acute November 302024 7:14am [facility] Work Phone: Radiology Diagnostic study note 12-25-2024 Note Date & Type Note Facility 12-25-2024 Radiology Diagnostic study note [facility] Services [address] [place] [address] [id number] Abdomen/Pelvis WITH Contrast MR#: [id number] Acct: [id number] Name: CALEB MASSEY Rep #: [id number] : 1955 M 69 From: Isidro Kathleen MD PCP: Dr. Cain Moore MD Status: REG CL I Study:Abdomen/Pelvis WITH Contrast Date of Ex am: 12/23/24 Exam# [id number] Ordering Dr: Erinn Moore MD PROCEDURE: ABDOMEN/PELVIS WITH CONTRAST 12/23/2024 REASON FOR EXAM: HERNIA TECHNIQUE: ABDOMEN/PELVIS WITH CONTRAST Coronal and Sagittal reconstruction series were provided. CONTRAST: Isovue-300 VOLUME: 100 mL One or more dose reduction techniques were used (e.g., Automated exposure control, adjustment of the mA and/or kV according to patient size, use of iterative reconstruction technique. RADIATION DOSE SUMMARY: CTDlvol: 13 mGy DLP: 1102 mGycm COMPARISON: None FINDINGS: Lung bases: The lung bases are clear. Liver: Normal size. No mass. Gallbladder: Gallbladder is contracted. Spleen: Normal size. Pancreas: Normal size without evidence of mass surrounding inflammation or ductal dilation. Adrenals: I suspect a 1.2 cm left adrenal adenoma. Kidneys: Cysts are seen in the anterior upper and midpole of the right kidney. The largest cyst measures 4.2 cm. Punctate nonobstructive calculus in the mid anterior pole of the left kidney. Bladder: Mild degree of diffuse bladder wall thickening. Central prostatic calcifications. Bowel: Colonic diverticulosis without diverticulitis. Appendix: The appendix is not identified. There is no inflammatory process identified in the right lower quadrant to suggest appendicitis. Lymph nodes: Unremarkable. Vasculature: Mild diffuse atherosclerotic calcifications are noted. Peritoneum / Retroperitoneum: Bilateral inguinal hernias containing fat slightlylarger on the left side. Bones: Degenerative changes of the spine. CT/Abdomen/Pelvis WITH Contrast IMPRESSION: Bilateral inguinal hernias containing fat larger on the left side. Sigmoid diverticulosis. Mild degree of bladder wall thickening. Questionable 1.2 cm left adrenal adenoma. Right renal cysts. Tiny nonobstructive left intrarenal calculus. Reading Location: [facility] CC: Dr. Cain Moore MD ~ Mat Inspector: Signed [facility] Progress note 12-25-2024 Note Date & Type Note Facility 12-25-2024 Progress note [facility] Progress note 12-25-2024 Note Date & Type Note Facility 12-25-2024 Progress note Note Date/Time December 25, 2024 8:02am [facility] [address] [place] [address] OFFICE VISIT Date of Service: 12/25/24 MR#: [id number] Acct: [id number] Name: CALEB MASSEY Rep #: [id number] : 1955 Provider: Dr. 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 Dyer Required: No Is patient in pain?: No Allergies No Known Allergies Allergy (Verified 12/25/24 08:00) Medications ?Medication ?Instructions ?Recorded ?Confirmed ?Type multivitamin with folic acid 400 1 tab PO DAILY 01/04/19 History mcg tablet coenzyme Q10 75 mg capsule (Ultra 75 mg PO QDAY 12/25/24 History CoQ10) lutein 20 mg capsule 20 mg PO QDAY 12/25/2412/25 History magnesium 200 mg tablet 200 mg PO QDAY 12/25/2411/30 History Have you fallen in the past year?: No PFSH Medical History (Updated 12/25/24 @ 07:53 by Alexia Barraza) Left inguinal hernia Umbilical hernia Anxiety Surgical History (Updated 12/25/24 @ 07:58 by Alexia Barraza) Status post surgery Family History (Updated 12/25/24 @ 07:59 by Alexia Barraza) Mother Diabetes CAD (coronary artery disease) Grandfather Diabetes Social History (Updated 12/25/24 @ 07:59 by Alexia Barraza) Smoking Status: Never smoker alcohol intake: current HPI HPI HPI: Patient is a 69-year-old male who comes in with a left inguinal hernia as well as an umbilical hernia. He reports that sneezing or coughing hurts his left groin. He does not have any symptoms from the umbilical hernia. ROS General General: No weight change, appetite, fatigue, colon cancer, breast cancer or weakness HEENT HEENT: No difficulty swallowing, eye injury, eye surgery, swollen glands or hoarseness Endo Endocrine: No thyroid disease, diabetes mellitus, thyroid cancer, Hair loss, heat intolerance or cold intolerance Skin Skin: No rash or changing moles Breast Breast: No left breast lump, right breast lump, nipple discharge, breast pain, abnormal mammogram, abnormal US or breast enlargement Musc Musculoskeletal: No back problems, arthritis, rheumatoid arthritis, gout or joint pain Cardio Cardiovascular: No murmur, pacemaker, heart disease, atrial fibrillation, high blood pressure, heart attack, heart stent, palpitations, shortness of breath with exertion or chest pain Psych Psychiatric: Yes anxiety; No depression or hearing voices Resp Respiratory: No shortness of breath, No sleep apnea, No cough, No COPD, No asthma, No emphysema and No wheezing Gastro Gastrointestinal: Yes abdominal pain, No nausea or vomiting, No diarrhea, No constipation, No blood in stool, No acid reflux, Yes hemorrhoids, No ulcers, No gallbladder problem and No black,tarry stools Ramirez Hematologic: No blood thinners, No blood disorders, No bleeding, No anemia and No blood clots Neuro Neurologic: No system reviewed and no additional complaints, except as documented, No as per HPI, No abnormal gait, No abnormal hearing, No abnormal movements, No abnormal speech, No behavioral changes, No burning sensations, No confusion, No convulsions, No disequilibrium, No dizziness, No localized weakness, No frequent falls, No headache(s), No lack of coordination, No loss ofvision, No memory loss, No numbness, No other visual disturbances, No radicular pain, No restless legs, No sensory deficit, No syncope, No tingling, No tremor(s), No weakness and No other Exam Const General: cooperative Orientation: alert and oriented x3 HENAL Head: normal to inspection Neck Neck: normal visual inspection and full ROM Chest Chest palpation & inspection: normal inspection of the chest Resp Effort & Inspection: normal respiratory effort Auscultation: clear to auscultation bilaterally Cardio Rate: regular rate Rhythm: regular rhythm GI Inspection: non-distended Palpation: soft, hernia indirect inguinal on the left and umbilical and nontender Skin General: no rashes or lesions noted Neuro General: patient alert and patient oriented x3 Extrem General: full ROM Psych Appearance: grossly normal Mental Status: mental status grossly normal Assessment and Plan Assessment and Plan (1) Left inguinal hernia: Status: Acute Plan: The patient has a left inguinal hernia which is reducible. I do feel a small hernia on the right as well. I discussed robotic assisted laparoscopic left inguinal hernia repair with mesh. I discussed the procedure as well as the risks including but not limited to bleeding, infection, injury other organ such as the bowel, bladder, blood supply to the testicle. Patient understands the risks and is willing to proceed. He would like me to fix the right side if there is a hernia present. (2) Umbilical hernia: Status: Acute Plan: The patient also has a small umbilical hernia which is reducible. I discussed repairing this through a separate incision with sutures at the time of surgery. Patient is agreeable. Ganesh Watkins MD Pager: [facility] [address] [place] [address], [address] [place] [address] Office: Coding Level of Care Code Off vis,new,level 4 Diagnoses Left inguinal hernia K40.90 Umbilical hernia K42.9 Clinical Quality Measures Falls Risk Screening/Assistive Devices Have you fallen in the past year?: No 12/25/24 0802 <Electronically signed by Ganesh garrido MD> Date _ Ganesh Watkins MD Cosign Signature: Date (if applicable) CC: ~ [facility] Work Phone: Evaluation note Note Date & Type Note Facility Evaluation note No assessment information availa [facility] Work Phone: Evaluation note Note Date & Type Note Facility Evaluation note Diagnosis Onset Date Resolution Left inguinal hernia acute 2024 7:14am Umbilical hernia acute November 302024 7:14am [facility] Work Phone: Reason for referral (narrative) Note Date & Type Note Facility Reason for referral (narrative) No reason for referral information available [facility] Work Phone: Chief Complaint and Reason for Visit Chief Complaint E-ORDER Chief Complaint Admit Date E-ORDER July 30, 2024 2:19 pm Chief Complaint Admit Date UMBILICAL HERNIA December 23, 2024 5: 23pm UMBILICAL HERNIA December 25, 2024 7: 14am Reason for Visit Admit Date Left inguinal hernia December 25, 2024 7 :14am Umbilical hernia December 25, 2024 7: 14am Advance Directives No Advanced Directives Records Found Advance Directive Response Recorded Date/ Time Living Will No December 12 9 8:25am Power of Mobile Pet Groomer No December 12 019 8:25am Advance Directive Response Recorded Date/ Time Living Will No December 12 9 7:25am Power of Mobile Pet Groomer No December 12 7:25am Family History No Family History Records Found Relationship Condition Age at Onset Recorded Date/T sunitha mother Diabetes mellitus Unknown Coronary artery disease Unknown grandfather Diabetes mellitus Unknown Summary Purpose Additional Source Comments Care Teams (unrecognized sec tion and content) Team Status: Active Member Role Status Dates Dr. Juliet Woods MD Family Provider Active Dr. Juliet Woods MD Primary Care Provider Active Team Status: Inactive Member Role Status Dates Dr. Juliet Woods MD Primary Care Prov ider, Attending Provider, Referring Provider Active Team Status: Inactive Member Role Status Dates Dr. Juliet Woods MD Primary Care Provider, Attendin g Provider Active Team Status: Inactive Member Role Status Dates Dr. Juliet Woods MD Primary Care Provider Active Start: July 30, 2024 End: July 30, 2024 Dr. Juliet Woods MD Attending Provider Active Start: July 30, 2024 End: July 30, 2024 Dr. Juliet Woods MD Referring Provider Active Start: July 30, 2024 End: July 30, 2024 Team Status: Active Member Role/Relationship Status Dates Cain Moore MD Primary Care Provider Active Team Status: Inactive Member Role/Relationship Status Dates Cain Moore MD Attending Provider Active Start : December 12, 2024 End: December 12, 2024 Team Status: Active Member Role/Relationship Status Dates Cain Moore MD Primary Care Provider Active St art: December 23, 2024 Cain Moore MD Attending Provider Active Start : December 23, 2024 Cain Mooer MD Referring Provider Active Start : December 23, 2024 Team Status: Inactive Member Role/Relationship Status Dates Cain Moore MD Primary Care Provider Active St art: December 25, 2024 End: December 25, 2024 Cain Moore MD Referring Provider Active Start : December 25, 2024 End: December 25, 2024 Dr. Ganesh Watkins MD Attending Provider Active Start: December 25, 2024 End: December 25, 2024 Team Status: Inactive Member Role/Relationship Status Dates Cain Moore MD Primary Care Provider Active St art: December 23, 2024 End: December 23, 2024 Cain Moore MD Attending Provider Active Start : December 23, 2024 End: December 23, 2024 Cain Moore MD Referring Provider Active Start : December 23, 2024 End: December 23, 2024 Goals (unrecognized section and content) Goals may be documented in a n alternate sectionGoals may be documented in an alternate sectionGoals may be documented in an alternate sectionGoals may be documented in an alternate sectionGoals may be documented in an alternate sectionGoals may be documented in an alternate section (unrecognized sect ion and content) No Status Records Found INFORMATION SOURCE (unrecogn ized section and content) DATE CREATED AUTHOR 01/11/2025 [facility] FOR RECORDS PERTAINING TO PATIENTS WHO ARE OR HAVE BEEN ENROLLED IN A CHEMICAL DEPENDENCY/SUBSTANCEABUSE PROGRAM, SOME INFORMATION MAY BE OMITTED. This clinical summary was aggregated from multiple sources. Caution should be exercised in using it in the provision of clinical care. This summary normalizes information from multiple sources, and as a consequence, information in this document may materially change the coding, format and clinical context of patient data. In addition, data may be omitted in some cases. CLINICAL DECISIONS SHOULD BE BASED ON THE PRIMARY CLINICAL RECORDS. [employer] provides no warranty or guarantee of the accuracy or completeness of information in this document.
--- NOTE | 2025-01-13 07:53 | PRE.ANES_ITS ---
ASA Classification* ASA Classification ASA Classification: 2 Assessment & Plan Anesthesia* Anesthesia Assessment Anesthesia Assessment: Discussed sedation and/or anesthesia options, risks, benefits, and alternatives with patient/parents/legal guardian/POA. Questions invited. The patient/parents/legal guardian/POA seems to understand and agrees to proceed with anesthesia plan. Reviewed the physical assessment, medical history, allergy history and patient home medications list prior to surgery/procedure/anesthetic and documented any changes. Performed airway and anesthesia risk assessments. Anesthesia Type Anesthesia Type: General Anesthesia Focused Assessment* Temperature: 98.8 F Pulse Rate: 69 Blood Pressure: 158/82 Respiratory Rate: 16 Pulse Ox: 100 Airway Assessment Mouth opens: >3 cm Mallampati Score: II Labs Anesthesia Preop lab: CBC WBC 6.6 K/mm3 (4.4-11.0) 12/12/24 15:37 12/12/24 RBC 4.49 M/mm3 (4.6-6.2) L 12/12/24 15:37 12/12/24 Hgb 13.8 g/dL (13.0-16.5) 12/12/24 15:37 12/12/24 Hct 41.1 % (40-54) 12/12/24 15:37 12/12/24 Plt Count 266 K/mm3 (150-450) 12/12/24 15:37 12/12/24 CHEMISTRY Potassium 4.3 mmol/L (3.3-5.1) 12/12/24 15:37 12/12/24 Sodium 139 mmol/L (133-145) 12/12/24 15:37 12/12/24 BUN 22 mg/dL (4-19) H 12/12/24 15:37 12/12/24 Creatinine 1.02 mg/dL (0.70-1.20) 12/12/24 15:37 12/12/24 Glucose 94 mg/dL (70-99) 12/12/24 15:37 12/12/24 TSH 2.370 uIU/mL (0.300-4.200) 07/30/24 14:23 04/0 05/25 COAG Pre-Assessment Diagnosis/Proposed Procedure Planned Operative Procedure(s): (L) Lap Robotic Left Inguinal Hernia w/mesh poss bilateral & open umbilical hernia Anesthesia History Anesthesia History - home security professional: Anesthesia History - home security professional Hx Hospitalization No 12/27/24 14:58 Any Problems With Anesthesia No 12/27/24 14:58 Cholinesterase deficiency No 12/27/24 14:58 You/Your Family Experience No 12/27/24 14:58 fever (hyperthermia) with Relationship Recent Exposure to Contagious No 01/13/25 07:44 Disease Does patient have nerve No 12/27/24 14:58 stimulator Patient instructed to have device shut off --Does patient have Pacemaker No 01/13/25 07:44 or ICD? When Was Last Pacemaker Check QUESTION #4 FULL TEXT: You/Your Family Experience fever (hyperthermia) with Anesthesia Last Oral Intake Last Oral intake: Last Oral Intake NPO since 18:00 01/13/25 07:44 Meds taken in AM with sips of No 01/13/25 07:44 water? Meds patient instructed to take am of surgery PONV PONV - home security professional: PONV - home security professional Female No 12/27/24 14:58 HX of Motion Sickness No 12/27/24 14:58 HX of N/V After Surgery No 12/27/24 14:58 Non-Smoker Yes 12/27/24 14:58 Duration of Surgery greater Yes 12/27/24 14:58 than 60 minutes Number of Risk Factors 2 12/27/24 14:58 PONV Score Moderate Risk 12/27/24 14:58 Height & Weight Height & Weight: Anesthesia: Height & Weight Height 5 ft 4 in 01/13/25 07:44 Weight: 77.5 kg 01/13/25 07:44 Body Mass Index (BMI) 29.3 01/13/25 07:44 Respiratory Assessment Respiratory Assessment - home security professional: Respiratory Tract Infection Hx - home security professional Hx Respiratory Tract Infection No 12/27/24 14:58 STOP Sleep Apnea STOP Sleep Apnea - home security professional: STOP Sleep Apnea - home security professional Hx Hypertension No 12/27/24 14:58 Hx Sleep Apnea No 12/27/24 14:58 CPAP BIPAP Do you snore loudly (louder Yes 12/27/24 14:58 than talking or can be heard Do you often feel tired/ No 12/27/24 14:58 fatigued/ sleepy during daytime? Has anyone observed you stop Yes 12/27/24 14:58 breathing during sleep? STOP Results Positive 12/27/24 14:58 QUESTION #5 FULL TEXT : Do you snore loudly (louder than talking or can be heard through closed doors)? 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 Specify any problems Hx of Preganancy in last 3 N/A 12/27/24 14:58 Months Nurse Filling Out Transfusion MGRIFFITH 12/27/24 14:58 & Questions: Date: 12/27/24 12/27/24 14:58 Time: 15:00 12/27/24 14:58 Patient unable to answer at this time (ie. confused, unrespo /Reproduction History /Reproductive History - home security professional: /Reproductive Hx- home security professional Hx Now No 12/27/24 14:58 Gestational Age (in weeks): EDC: Hx Hx Para Hx Section SAB No 12/27/24 14:58 Active Medications Active Medications: Current Medications Generic Name Dose Route Start Last Admin Trade Name Freq PRN Reason Stop Dose Admin Cefazolin Sodium 2 gm/ Sodium 110 mls @ 200 mls/hr 01/13/25 09:15 Chloride IV 01/13/25 09:47 INTRAOP ONE Lactated Ringer's 1,000 mls @ 15 mls/hr 01/13/25 07:30 IV .Q48H FELICITAS PFSH Medical History Wears glasses Alcohol use Arthritis High cholesterol Restless legs History of diverticulosis Non-smoker Leg cramps History of stress test Left inguinal hernia Umbilical hernia Anxiety Home Medications ?Medication ?Instructions ?Recorded ?Last Taken ?Type multivitamin with folic acid 400 1 tab PO DAILY Unknown History mcg tablet coenzyme Q10 75 mg capsule (Ultra 75 mg PO QDAY 12/25/24 History CoQ10) lutein 20 mg capsule 20 mg PO QDAY 12/25/2412/25 History magnesium 200 mg tablet 200 mg PO QDAY 12/25/2411/30 History Allergy/AdvReac Type Severity Reaction Status Date / Time No Known Allergies Allergy Verified 01/13/25 07:40 Family History Mother Diabetes CAD (coronary artery disease) Grandfather Diabetes Surgical History History of colonoscopy Status post surgery Social History Smoking Status: Never smoker alcohol intake: current Review of Systems (Anesthesia) ROS Narrative System reviewed and no additional complaints, except as documented.
[2025-01-13] MEDS: Lactated Ringers 1,000 ML 15 ML IV (07:54)
--- NOTE | 2025-01-13 08:30 | HP.PCM_ITS ---
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 Leader Required: No Is patient in pain?: No Allergies No Known Allergies Allergy (Verified 12/25/24 08:00) Medications ?Medication ?Instructions ?Recorded ?Confirmed ?Type multivitamin with folic acid 400 1 tab PO DAILY 12/11/18 01/04/19 History mcg tablet coenzyme Q10 75 mg capsule (Ultra 75 mg PO QDAY 12/25/24 12/25/24 History CoQ10) lutein 20 mg capsule 20 mg PO QDAY 12/25/24 12/25/24 History magnesium 200 mg tablet 200 mg PO QDAY 12/25/24 12/25/24 History Have you fallen in the past year?: No PFSH Medical History (Updated 12/25/24 @ 07:53 by Alexia Barraza) Left inguinal hernia Umbilical hernia Anxiety Surgical History (Updated 12/25/24 @ 07:58 by Alexia Barraza) Status post surgery Family History (Updated 12/25/24 @ 07:59 by Alexia Barraza) Mother Diabetes CAD (coronary artery disease)Grandfather Diabetes Social History (Updated 12/25/24 @ 07:59 by Alexia Barraza) Smoking Status: Never smoker alcohol intake: current HPI HPI HPI: Patient is a 69-year-old male who comes in with a left inguinal hernia as well as an umbilical hernia. He reports that sneezing or coughing hurts his left groin. He does not have any symptoms from the umbilical hernia. ROS General General: No weight change, appetite, fatigue, colon cancer, breast cancer or weakness HEENT HEENT: No difficulty swallowing, eye injury, eye surgery, swollen glands or hoarseness Endo Endocrine: No thyroid disease, diabetes mellitus, thyroid cancer, Hair loss, heat intolerance or cold intolerance Skin Skin: No rash or changing moles Breast Breast: No left breast lump, right breast lump, nipple discharge, breast pain, abnormal mammogram, abnormal US or breast enlargement Musc Musculoskeletal: No back problems, arthritis, rheumatoid arthritis, gout or joint pain Cardio Cardiovascular: No murmur, pacemaker, heart disease, atrial fibrillation, high blood pressure, heart attack, heart stent, palpitations, shortness of breath with exertion or chest pain Psych Psychiatric: Yes anxiety; No depression or hearing voices Resp Respiratory: No shortness of breath, No sleep apnea, No cough, No COPD, No asthma, No emphysema and No wheezing Gastro Gastrointestinal: Yes abdominal pain, No nausea or vomiting, No diarrhea, No constipation, No blood in stool, No acid reflux, Yes hemorrhoids, No ulcers, No gallbladder problem and No black,tarry stools Ramirez Hematologic: No blood thinners, No blood disorders, No bleeding, No anemia and No blood clots Neuro Neurologic: No system reviewed and no additional complaints, except as documented, No as per HPI, No abnormal gait, No abnormal hearing, No abnormal movements, No abnormal speech, No behavioral changes, No burning sensations, No confusion, No convulsions, No disequilibrium, No dizziness, No localized weakness, No frequent falls, No headache(s), No lack of coordination, No loss of vision, No memory loss, No numbness, No other visual disturbances, No radicular pain, No restless legs, No sensory deficit, No syncope, No tingling, No tremor(s), No weakness and No other Exam Const General: cooperative Orientation: alert and oriented x3 HENMT Head: normal to inspection Neck Neck: normal visual inspection and full ROM Chest Chest palpation & inspection: normal inspection of the chest Resp Effort & Inspection: normal respiratory effort Auscultation: clear to auscultation bilaterally Cardio Rate: regular rate Rhythm: regular rhythm GI Inspection: non-distended Palpation: soft, hernia indirect inguinal on the left and umbilical and nontender Skin General: no rashes or lesions noted Neuro General: patient alert and patient oriented x3 Extrem General: full ROM Psych Appearance: grossly normal Mental Status: mental status grossly normal Assessment and Plan Assessment and Plan (1) Left inguinal hernia: Status: Acute Plan: The patient has a left inguinal hernia which is reducible. I do feel a small hernia on the right as well. I discussed robotic assisted laparoscopic left inguinal hernia repair with mesh. I discussed the procedure as well as the risks including but not limited to bleeding, infection, injury other organ such as the bowel, bladder, blood supply to the testicle. Patient understands the risks and is willing to proceed. He would like me to fix the right side if there is a hernia present. (2) Umbilical hernia: Status: Acute Plan: The patient also has a small umbilical hernia which is reducible. I discussed repairing this through a separate incision with sutures at the time of surgery. Patient is agreeable. Ganseh Watkins MD Pager: [facility] [address] [place] [address], [address] [place] [address] Office: I have examined the patient and the H&P has been reviewed. There are no clinical changes since date of exam.
--- NOTE | 2025-01-13 09:49 | PCM.PN.BLA ---
Progress Note The patient had inverted T waves on induction with EKG changes. This reversed itself but it was noted before surgery started. At this point we discussed with anesthesia and we think it is in the patient's best interest to stop the procedure and extubate the patient and wake him up and send him for stress test before reattempting surgery. Ganesh Watkins MD Pager: [facility] [address] [place] [address] [address] [place] [address] Office:
[2025-01-13] MEDS: Lactated Ringers 1,000 ML 1000 ML IV (09:51)
[2025-01-13] MEDS: Cefazolin 1 GM/5 ML Vial 2 GM IV (09:51)
[2025-01-13] MEDS: fentaNYL 100 MCG/2 ML Ampul 50 MCG IV (09:51)
[2025-01-13] MEDS: Midazolam 2 MG/2 ML Syringe IV (09:51)
[2025-01-13] MEDS: Lidocaine 1% (5 ml sdv) 5 ML Vial IV (09:52)
--- NOTE | 2025-01-13 10:16 | EKG12_ITS ---
Test Reason : EKG CHANGES Blood Pressure : */* mmHG Vent. Rate : 68 BPM Atrial Rate : 68 BPM P-R Int : 154 ms QRS Dur : 88 ms QT Int : 426 ms P-R-T Axes : 29 -51 17 degrees QTcB Int : 452 ms Normal sinus rhythm Left axis deviation Cannot rule out Inferior infarct , age undetermined Abnormal ECG When compared with ECG of 01-Jan-2025 06:40, No significant change was found Confirmed by Uziel Alvarado ([id number]), map editor OLIVA POZO ([id number]) on 01/14/2025 5:49:08 AM Referred By: Ganesh Watkins Confirmed By: Uziel Alvarado
--- NOTE | 2025-01-13 10:32 | PCM.POST.ANE ---
Anesthesia: Postop Eval I Current Vital Signs Temperature: 97.3 F Pulse Rate: 73 Blood Pressure: 125/82 Respiratory Rate: 16 Pulse Ox: 99 Oxygen Delivery Method: Room Air Assessment Airway patent: Yes Spontaneous unlabored respirations: Yes Mental status: Awake and Calm nausea: No Vomiting: No Anesthesia Complication: Yes Anesthesia Complication Comment:: patient was noted to go into a LBBB and decrease HR in mid 30's after induction per ASSISTANT MANAGER BILINGUAL and Dr. Watkins. Decision was made to cancel for further evaluation. in recovery patient with normal vs, no cardiac symptoms and normal EKG. patient will have eval. set up per DR. Villa office. Fluid Hydration Crystalloid volume administer (ml): 200 Total IV fluid infused: 200 Progress Note Anesthesia document: Postop Eval 1 completed: Yes
--- NOTE | 2025-01-13 10:36 | POSTOPAN2_ITS ---
Anesthesia Postop Eval I Sum Postop Eval Completion status Anesthesia document: Postop Eval 1 completed: Yes Anesthesia Postop Eval I Summary Anesthesia Postop Eval I Summary: Anesthesia Postop Eval I: Assessment Summary Airway patent Yes 01/13/25 10:36 Spontaneous unlabored Yes 01/13/25 10:36 respirations Mental status Awake,Calm 01/13/25 10:36 nausea No 01/13/25 10:36 Vomiting No 01/13/25 10:36 Anesthesia Postop Eval I: Fluid Summary Crystalloid volume administer 200 01/13/25 10:36 (ml) Colloids volume administered ( ml) Blood Product volume administered (ml) Total IV fluid infused 200 01/13/25 10:36 Anesthesia Postop Eval I: Summary Notes Anesthesia Complication Yes 01/13/25 10:36 Anesthesia Complication patient was noted 01/13/25 10:36 Comment: to go into a LBBB and decrease HR in mid 30's after induction per RESIDENTIAL AIR SEALING TECHNICIAN and Dr. Watkins. Decision was made to cancel for further evaluation . in recovery patient with normal vs, no cardiac symptoms and normal EKG. patient will have eval. set up per DR. Villa office. Post-operative progress note Anesthesia: Postop Eval II Evaluation Mental status: Awake and Calm Pain Level: 0 nausea: No Vomiting: No Progress Note Post-operative progress note: see post op 1 note
== END 2025-01-13 10:45 | disposition home or self-care (01) ==
LOC: SDC 07:13 → AC 07:14
PROVIDERS: PCP Family Medicine; Referring Provider Surgery; Visit Provider Surgery
PROC: 0YQ64ZZ Repair Left Inguinal Region, Percutaneous Endoscopic Approach (ICD-10-PCS; CPT 49505; principal; 2025-01-13 08:55)
DX: K40.90 Unilateral inguinal hernia, without obstruction or gangrene, not specified as recurrent (principal); K42.9 Umbilical hernia without obstruction or gangrene; E78.00 Pure hypercholesterolemia, unspecified; Z53.09 Procedure and treatment not carried out because of other contraindication
CPT/HCPCS: 49505; 49591; 00830; 93005; J2405

== ENCOUNTER → 2025-03-03 | Outpatient (CLI) | payer MEDICARE, OTHER, SELFPAY ==
--- NOTE | 2025-03-03 06:51 | ECHOD_ITS ---
Reason For Study ECHO/Echo Complete
== END | disposition home or self-care (01) ==
PROVIDERS: PCP Family Medicine; Referring Provider Internal Medicine Cardiovascular Disease; Visit Provider Internal Medicine Cardiovascular Disease
DX: Z01.818 Encounter for other preprocedural examination (principal)
CPT/HCPCS: 93306

== ENCOUNTER 2025-03-24 07:13 | Day surgery (SDC) | payer MEDICARE, OTHER, SELFPAY ==
--- NOTE | 2025-03-18 17:03 | PAT.ANESEVAL ---
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 When Was Last Pacemaker Check QUESTION #4 FULL TEXT: You/Your Family Experience fever (hyperthermia) with Anesthesia Last Oral Intake Last Oral intake: Last Oral Intake NPO since Meds taken in AM with sips of water? 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 Female No 03/18/25 11:06 HX of Motion Sickness No 03/18/25 11:06 HX of N/V After Surgery No 03/18/25 11:06 Non-Smoker Yes 03/18/25 11:06 Duration of Surgery greater Yes 03/18/25 11:06 than 60 minutes Number of Risk Factors 2 03/18/25 11:06 PONV Score Moderate Risk 03/18/25 11:06 Height & Weight Height & Weight: Anesthesia: Height & Weight Height 5 ft 4 in 02/05/25 09:28 Respiratory Assessment Respiratory Assessment - electronic semiconductor processor: Respiratory Tract Infection Hx - electronic 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 Has anyone observed you stop No 03/18/25 11:06 breathing during sleep? STOP Results Negative 03/18/25 11:06 QUESTION #5 FULL TEXT : Do you snore loudly (louder than talking or can be heard through closed doors)? 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 Specify any problems Hx of Preganancy in last 3 N/A 03/18/25 11:06 Months Nurse Filling Out Transfusion [id number] 03/18/25 11:06 & Questions: Date: 03/18/25 03/18/25 11:06 Time: 11:07 03/18/25 11:06 Patient unable to answer at this time (ie. 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: /Reproductive Hx- electronic semiconductor processor Hx Now No 03/18/25 11:06 Gestational Age (in weeks): EDC: Hx Hx Para Hx Section SAB No 03/18/25 11:06 Does the father of the baby or his family experience fever w Father of the baby Malignant Hypertension history comment [facility] Medical History (Updated 03/18/25 @ 11:10 by Butch Saldana) Cardiology follow-up encounter History of echocardiogram Pure hypercholesterolemia, unspecified Pre-operative clearance Abnormal EKG Alcohol use Arthritis High cholesterol Restless legs History of diverticulosis Leg cramps Left inguinal hernia Umbilical hernia Anxiety Home Medications ?Medication ?Instructions ?Recorded ?Last Taken ?Type coenzyme Q10 75 mg capsule (Ultra 100 mg PO QDAY 02/05/25 Unknown History CoQ10) lutein 6 mg capsule 2 mg PO QDAY 02/05/25 Unknown History magnesium 200 mg tablet 300 mg PO QDAY 02/05/25 Unknown History tumeric 1 dose PO DAILY 02/05/25 Unknown History Lactobacillus acidophilus 10 10,000 mmu cells PO QDAY 03/18/25 Unknown History billion cell capsule ([employer]) Allergy/AdvReac Type Severity Reaction Status Date / Time cat dander Allergy Mild Other Verified 03/18/25 11:03 Environmental Allergies: Allergy Mild Other Verified 03/18/25 11:03 Uncoded (hay fever) Family History Mother Diabetes CAD (coronary artery disease) Grandfather Diabetes Father Parkinsons disease Surgical History History of colonoscopy Status post surgery Social History Smoking Status: Never smoker alcohol intake: current Audit: Pertinent Findings Pertinent Findings EKG Perinent findings: EKG 02/05/2025. Sinus bradycardia. Left axis deviation. When compared with EKG of January 13, 2025 criteria for inferior infarct are no longer present. Echo (EF%) pertinent findings: Echo 03/03/2025. The left ventricular ejection fraction is 65%. Normal LV size. Aortic sclerosis, no stenosis. Mildly dilated aortic root. Recommendation Anesthesia Recommendation Anesthesia recommendation: OPTIMIZED for anesthesia
[2025-03-24] VITALS (10 sets, daily range): BP systolic 127–147; BP diastolic 57–70; PULSE 69–82; RESP 16–20; TEMP 36.6–37.2; O2SAT 96–99; BMI 24.4
--- OUTSIDE RECORDS SUMMARY | 2025-03-24 07:20 | XMS RPT_ITS | CCD ---
Author Organization [facility] Care Team Providers Care All Around Patternmaker Name Role Phone Peggy BRANTLEY, Dr. Juliet Almendarez Primary Care Provider [phone] Peggy BRANTLEY, Dr. Juliet Almendarez Attending Provider Dr. Juliet Woods MD Referring Provider Cain Moore MD Attending Provider Oscar BRANTLEY, Cain Primary Care Provider Oscar BRANTLEY, Cain Referring Provider Dr. Ganesh Watkins MD Attending Provider [phone] Christiano BRANTLEY, Dr. Triplett Attending Provider Dr. Ganesh Watkins MD Referring Provider Cl BRANTLEY, Dr. Andersen Other Provider Cain Moore MD Attending Physician Oscar BRANTLEY, Cain Primary Care Physician [phone] Cl BRANTLEY, Dr. Andersen Attending Physician Dr. Caleb Alvarado MD Attending Physician Dr. Ganesh Watkins MD Nurse Practitioner Golden BRANTLEY, Dr. Pablo Attending Physician Cain Moore Attending Unavailable Oscar, Chalon Primary Care Unavailable OscarCain Attending Unavailable Oscar, Chalon Referring Unavailable Golden, Samy Referring Unavailable Golden, Samy Attending Unavailable Oscar, Chalon Primary Care Unavailable Oscar, Chalon Primary Care Unavailable Ganesh Watkins Attending Unavailable Ganesh Watkins Referring Unavailable Golden, [place] Attending Unavailable Oscar, Chalon Primary Care Unavailable Carmen Vasquez NP Attending Unavailable Oscar, Chalon Primary Care Unavailable Osacr, Chalon Primary Care Unavailable Caleb Alvarado Attending Unavailable Cl, Ganesh Referring Unavailable Mary Puri Attending Unavailable Oscar, Chalon Primary Care Unavailable Cl, Ganesh Attending Unavailable Cl, Ganesh Referring Unavailable Calabretta, Ganesh Consulting Unavailable Oscar, Chalon Primary Care Unavailable Samy Franks Attending Unavailable Oscar, Chalon Referring Unavailable Oscar, Chalon Primary Care Unavailable Oliva Burris Attending Unavailable Oscar, Chalon Referring Unavailable Oscar, Chalon Primary Care Unavailable Oscar, Chalon Primary Care Unavailable Calabralvarado, Ganesh Attending Unavailable Oscar, Chalon Referring Unavailable Calabralvarado, Ganesh Attending Unavailable Oscar, Chalon Primary Care Unavailable Jolliff, Juliet S Primary Care Unavailable Jolliff Juliet S Attending Unavailable Jolliff, Juliet S Referring Unavailable Allergies Allergy Classification Reported Allergen(s) Allergy Type Date of Onset Reaction(s) Facility (1 source) Environmental Allergies: Uncoded; Translations: [Environmental Allergies: Uncoded] Propensity to adverse reactions (disorder) [address] [place] [address] Repository (1 source) cat dander Drug allergy (disorder) [address] [place] [address] Repository Medications Current Medications Medication Drug Class(es) Dates Sig (Normalized) Sig (Original) lutein 6 mg oral capsule (5 sources) Start: 02-05-2025 take 2 mg by mouth once daily Lutein 6 mg capsule Active 2 mg PO daily February 05, 2025 12:00am give with meal/snack Complies with drug therapy Start: 12-25-2024 End: 02-05-2025 take 1 capsule by mouth once daily Lutein 20 mg capsule Discontinued 20 mg PO daily December 25, 2024 12:00am February 05, 2025 9:51am give with meal/snack Magnesium (5 sources) Start: 02-05-2025 Magnesium 200 mg tablet Active 300 mg PO daily February 05, 2025 9:50am Complies with drug therapy Start: 12-25-2024 End: 02-05-2025 take 1 tablet by mouth once daily Magnesium 200 mg tablet Discontinued 200 mg PO daily December 25, 2024 12:00am February 05, 2025 9:51am Start: 12-25-2024 take 1 tablet by xiomy th once daily Magnesium 200 mg tablet Active [...] TABLET PO DAILY December 11, 2018 12:00am tumeric (1 source) Start: 02-05-2025 ubidecarenone 75 mg oral cap prudence (5 sources) Start: 02-05-2025 Coenzyme Q10 ( Ultra Coq10) 75 mg capsule Active 100 mg PO daily February 05, 2025 9:50am Complies with drug therapy Start: 12-25-2024 End: 02-05-2025 Coenzyme Q10 (Ultra Coq10) 7 5 mg capsule Discontinued 75 mg PO daily December 25, 2024 12:00am February 05, 2025 9:51am Completed/Discontinued Medications Medication Drug Class(es) Dates Sig (Normalized) Sig (Original) acetaminophen 325 mg / HYDROcodone bitartrate 5 mg oral tablet (8 sources) Opioid Agonist Start: 12-11-2018 End: 12-15-2018 [...] 2018 11:08pm loratadine 10 mg oral tablet (8 sources) Start: 12-11-2018 End: 12-25-2024 take 1 tablet by mouth once daily as needed Loratadine 10 MG tablet Discontinued 10 mg PO DAILY as needed for Allergies December 11, 2018 12:00am December 25, 2024 8:00am Multivitamin With Folic Acid 1 TABLET tablet (6 sources) Start: 12-11-2018 End: 01-27-2025 take 1 tablet by mouth once daily Multivitamin With Folic Acid 1 TABLET tablet Discontinued 1 {tbl} PO DAILY December 11, 2018 12:00am January 27, 2025 9:09am Start: 12-11-2018 take 1 tablet by xiomy th once daily Multivitamin With Folic Acid 1 TABLET tablet Active 1 {tbl} PO DAILY December 11, 2018 12:00am Problems Problem Classification Problem Date Documented Da te Episodic/Chronic Abdominal hernia (18 sources) Umbilical hernia; Translations: [Umbilical hernia without obstruction or gangrene] Onset: 5 12-25-2024 Episodic Abdominal pain (1 source) Unspecified abdominal pain; Translations: [Unspecified abdominal pain] Onset: Episodic Anxiety disorders (4 sources) Anxiety; Translations: [Anxiety disorder, unspecified] 12-25-2024 Chronic Disorders of lipid metabolism (4 sources) Hypercholesterolemia; Translations: [Pure hypercholesterolemia, unspecified] Onset: 5 01-27-2025 Chronic Joint disorders and dislocations; trauma-related (8 sources) Anterior dislocation of shoulder joint; Translations: [Anterior dislocation of right humerus, initial encounter] 12-12-2018 Episodic Osteoarthritis (1 source) Arthritis; Translations: [Unspecified osteoarthritis, unspecified site] 01-27-2025 Chronic Comment on above: FINGERS Other connective tissue disease (1 source) Cramp in lower limb; Translations: [Cramp and spasm] 01-27-2025 Episodic Other gastrointestinal disorders (1 source) H/O: gastrointestinal disease; Translations: [Personal history of other diseases of the digestive system] 01-27-2025 Episodic Other hereditary and degenerative nervous system conditions (1 source) Restless legs; Translations: [Restless legs syndrome] 01-27-2025 Chronic Other screening for suspected conditions (not mental disorders or infectious disease) (3 sources) Electrocardiogram abnormal; Translations: [Abnormal electrocardiogram [ECG] [EKG]] Onset: 5 01-13-2025 Episodic Unclassified (7 sources) No history of clinical finding in subject; Translations: [No significant past medical history] 12-11-2018 Results Test Name Value Interpretation Reference Range Facility Surgery Visit Reporton 03-12 Surgery Visit Report [facility] [address] [place] [address] OFFICE VISIT Date of Service: 03/12/25 MR#: [id number] Acct: [id number] Name: CALEB MASSEY Rep #: [id number] : 1955 Provider: PRITESH ramsey Age/Sex: 69/M Location: [facility] Status: Signed Intake Vital Signs 02/05/25 09:28 03/12/25 07:30 Height 5 ft 4 in 5 ft 8 in Weight: 167 lb 6 oz BMI 25.4 BP 153/75 H Blood Pressure Location Rt brachial Position Sitting Respiration 18 Pulse 71 Pulse Source Monitor Temp 97.6 F L Temp Source Temporal Pulse Oximetry (%) 98 Oxygen Delivery Method room air Intake Visit Reasons: UPDATE H P- HERNIA TC Chief Complaint: update H P- hernia TC Is patient in pain?: No Allergies cat dander Allergy (Mild, Verified 03/12/25 07:32) Other Environmental Allergies: Uncoded (hay fever) Allergy (Mild, Verified 03/12/25 07:32) Other Have you fallen in the past year?: No PFSH Medical History Pure hypercholesterolemia , unspecified Pre-operative clearance Abnormal EKG Alcohol use Arthritis High cholesterol Restless legs History of diverticulosis Leg cramps Left inguinal hernia Umbilical hernia Anxiety Surgical History History of colonoscopy Status post surgery Family History Mother Diabetes CAD (coronary artery disease) Grandfather Diabetes Father Parkinsons disease Social History Smoking Status: Never smoker alcohol intake: current HPI HPI Surgical H P: Yes HPI: Patient is a 69 y/o M I am seeing for an update history and physical for an upcoming elective left inguinal hernia repair and umbilical hernia repair with Dr. Watkins. Patient was scheduled and had a completed EKG. The day of surgery patient had EKG changes on the monitor and it was decided to abort the procedure in December. Patient was evaluated by cardiology and had an ECHO completed which was overall unremarkable with a normal ejection fraction. Cardiology cleared the patient and deemed him low risk for surgery. Patient denies any current chest pain or shortness of breath. He denies previous myocardial infarction, stroke or blood clots. He is not on a blood thinner currently. He denies any previous complications or side effects with anesthesia. Patient does note difficulty with constipation relating to the hernia. he state she has placed himself on milk of magnesia every other day to assist with bowel movements. Patient's previous history per Dr. Watkins: Patient is a 69-year-old male who comes [...] sensory deficit, No syncope, No tingling, No tremor(s (more content not included)... Normal [facility] Echo Completeon 03-03-2025 Echo Complete [facility] [address] [place] [address] Echo Complete 03/03/25 0801 MR#: [id number] Acct: [id number] Name: CALEB MASSEY Rep #: [id number] : 1955 69 From: Mary Puri MD Attending Dr: Dr. Samy Franks MD Status: RADHA BOO Ordering Dr: Samy Franks MD Date: 03/03/25 Location: [facility] Sex: M C Admitted: Reason For Study Reason For Study: PRE OP Procedure This was a 2D Doppler, Color Flow transthoracic echocardiogram. Exam performed in department. Left Ventricle Normal LV size. Left ventricular systolic function is normal. The left ventricular ejection fraction is 65 %. Normal diastology for age. No regional wall motion abnormalities noted. Right Ventricle Normal RV size. Normal systolic function. Atria Normal left atrium. Normal right atrium. Mitral Valve Mild mitral annular calcification. Mild (1+) mitral valve insufficiency. Tricuspid Valve Normal tricuspid valve. Mild (1+) tricuspid valve insufficiency. Pulmonary artery systolic pressure is 31 mmHg. Aortic Valve Trisinus/trileaflet aortic valve. Mild focal aortic valve calcification. Aortic sclerosis, no stenosis. Trivial aortic valve insufficiency. Pulmonic Valve Normal pulmonic valve. Trivial pulmonic valve insufficiency. Great Vessels Mildly dilated aortic root. The inferior vena cava is not dilated. and collapses. Pericardium/Pleural No pericardial effusion. MMode/2D Measurements Calculations LVIDd: 4.8 cm IVSd: 0.97 cm LVOT diam: 2.0 cm LVIDs: 2.2 cm LVPWd: 0.90 cm LVOT area: 3.2 cm2 RVDd: 3.8 cm FS: 54.8 % Ao root diam: 4.2 cm LAV(MOD-bp): 57.3 ml LVAd ap4: 24.9 cm2 LAV(MOD-bp) Indexed: 31.4 ml/m2 LVLd ap4: 7.5 cm LAV(MOD-sp2): 59.3 ml EDV(MOD-sp4): 66.9 ml LAV(MOD-sp4): 54.6 ml EDV(sp4-el): 70.7 ml LVAs ap4: 12.3 cm2 LVLs ap4: 6.1 cm ESV(MOD-sp4): 20.4 ml ESV(sp4-el): 21.0 ml EF(MOD-sp4): 69.5 % EF(sp4-el): 70.3 % LVAd ap2: 26.0 cm2 SV(MOD-sp4): 46.5 ml SV(MOD-sp2): 50.9 ml LVLd ap2: 7.7 cm SI(MOD-sp4): 25.5 ml/m2 SI(MOD-sp2): 27.9 ml/m2 EDV(MOD-sp2): 73.6 ml EDV(sp2-el): 75.2 ml LVAs ap2: 13.1 cm2 LVLs ap2: 6.3 cm ESV(MOD-sp2): 22.7 ml ESV(sp2-el): 23.0 ml EF(MOD-sp2): 69.2 % SV(sp4-el): 49.7 ml Ao sinus diam: 3.[address] Junction: 3.1 cm LA dimension(2D): 4.2 cm LA A4 area: 19.4 cm2 RA A4 area: 14.2 cm2 TAPSE: 2.5 cm Time Measurements MV dec time: 0.22 sec Doppler Measurements Calculations MV E max chano: 83.7 cm/sec Lat Peak E' Chano: 11.6 cm/sec Med Peak E' Chano: 10.6 cm/sec MV A max chano: 57.9 cm/sec E/E' lat: 7.2 E/E' med: 7.9 MV E/A: 1.4 MV dec slope: 381.5 cm/sec2 Ao V2 max: 181.1 cm/sec LV V1 max: 154.5 cm/sec Ao max P.1 mmHg LV V1 max P.6 mmHg Ao V2 mean: 113.3 cm/sec LV V1 mean P.3 mmHg Ao mean P.1 mmHg LV V1 mean: 97.3 cm/sec Ao V2 VTI: 38.8 cm LV V1 VTI: 30.3 cm AV (velocity ratio): 0.78 JOY(I,D): 2.5 cm2 JOY(V,D): 2.7 cm2 SV(LVOT): 96.0 ml PA V2 max: 139.0 cm/sec TR max chano: 262.2 cm/sec TR max P.5 mmHg ECHO/Echo Complete Interpretation Summary The left ventricular ejection fraction is 65 %. Normal LV size. Mild (1+) mitral valve insufficiency. Mild mitral annular calcification. Mild (1+) tricuspid valve insufficiency. Aortic sclerosis, no stenosis. Mildly dilated aortic root. Ordering Physician: Samy Franks Referring Physician: Samy Franks MD Performed By: Willow Arredondo RDCS 03/04/25 1410 Date Mary Puri MD CC: Dr. Cain Moore MD; Dr. Samy Franks MD Date Dictated: 03/03/25 0801 Date Transcribed: 03/04/25 1410 Precision Lens Technician: Signed Normal [facility] Limited Chest CT Cardiac Onl yon 03-03-[address] Cardiac Only [facility] [address] [facility] [place], [place] [address] Limited Chest CT Cardiac Only MR#: [id number] Acct: [id number] Name: CALEB MASSEY Rep #: [id number] : 1955 M 69 From: Breezy Phillip PCP: Dr. Cain Moore MD Status: REG REF Study: Limited Chest CT Cardiac Only Date of Exam: Exam# [id number] Ordering Dr: Samy Franks MD PROCEDURE: LIMITED CHEST CT CARDIAC ONLY 03/03/2025 REASON FOR EXAM: CALCIUM SCORE Hypercholesterolemia . TECHNIQUE: Procedure Code: CTCCTACHLIM Modality: CT Procedure: LIMITED CHEST CT CARDIAC ONLY One or more dose reduction techniques were used (e.g., Automated exposure control, adjustment of the mA and/or kV according to patient size, use of iterative reconstruction technique). RADIATION DOSE SUMMARY: CTDlvol: 12.19 mGy DLP: 219.42 mGycm COMPARISON: None. CT/Limited Chest CT Cardiac Only IMPRESSION: Limited imaging of the lungs demonstrates no acute process. No pleural effusion or pneumothorax is seen in visualized areas. No adenopathy is noted. The visualized upper abdomen demonstrates no significant abnormality. Reading Location: [place] [address] CC: Dr. Cain Moore MD; Dr. Samy Franks MD Precision Lens Technician: Signed Normal [facility] Cardiology Visit Reporton Cardiology Visit Report [facility] [address] [place] [address] OFFICE VISIT Date of Service: 02/05/25 MR#: [id number] Acct: [id number] Name: CALEB MASSEY Rep #: [id number] : 1955 Provider: Dr. Samy Franks MD Age/Sex: 69/M Location: [facility] Status: Signed HPI HPI History of Present Illness Details: The patient is a 69-year-old male presenting for preoperative cardiac evaluation following an abnormal EKG finding prior to scheduled hernia repair surgery. The patient was scheduled for hernia repair surgery on January 13. During preoperative monitoring in the OR, an EKG abnormality was noted, described as a blip that resolved spont aneously. The anesthesiologist suspected it might have been an artifact due to movement but referred the patient for further cardiac evaluation. The surgery was postponed pending cardiac clearance. He denies any history of chest pain, dyspnea, dizziness, or palpitations. He remains physically active, engaging in 15 minutes of stationary biking after dinner and performing regular yard work. He is employed at [employer], where he is frequently on his feet and walking around. He monitors his blood pressure at home, noting slightly higher readings in the morning, but overall, his readings have been within the normal range. He has no history of myocardial infarction, heart failure, or renal failure. He is not currently taking any medications but has been using supplements intermittently, which he discontinued two weeks prior to the scheduled surgery. He recently started taking a probiotic. He has been attempting dietary modifications to lower his cholesterol, including reducing intake of fried foods, potato chips, and sweets. His breakfast typically consists of Cheerios, Life cereal, or oatmeal, with occasional eggs. He has switched from regular perera to chicken perera. His LDL cholesterol was 190 mg/dL in July. Total was 265 Intake Vital Signs 01/13/25 07:44 02/05/25 09:28 Height 5 ft 4 in 5 ft 4 in Weight: 170 lb BMI 29.2 BP 155/82 H Blood Pressure Location Lt brachial Position Sitting Respiration 16 Pulse 62 Pulse Source Monitor Intake Visit Reasons: ABN EKG (CL) Oxygen Therapy Teacher Required: No Accompanied by: Self Is patient in pain?: No Allergies No Known Allergies Allergy (Verified 02/05/25 09:49) Medications ???Medication ???Instructions ???Recorded ???Confirmed ???Type coenzyme Q10 75 mg capsule (Ultra 100 mg PO QDAY 02/05/25 02/05/25 History CoQ10) lutein 6 mg capsule 2 mg PO QDAY 02/05/25 02/05/25 His tory magnesium 200 mg tablet 300 mg PO QDAY 02/05/25 02/05/25 H istory tumeric PO 02/05/25 History Have you fallen in the past year?: No PFSH Medical History Pure hypercholesterolemia , unspecified Pre-operative clearance Abnormal EKG Alcohol use Arthritis High cholesterol Restless legs History of diverticulosis Leg cramps Left inguinal hernia Umbilical hernia Anxiety Surgical History History of colonoscopy Status post surgery Family History Mother Diabetes CAD (coronary artery disease) Grandfather Diabetes Father Parkinsons disease Social History Smoking Status: Never smoker alcohol intake: current ROS Const Const: Negative for fatigue, weakness, daytime sleepiness or difficulty sleeping ENT ENT: Negative for dizziness or Nosebleed/epistaxis Cardio Chest Pain: No Palpitations: Yes feels like its: fast Edema: None Resp Respiratory: Negative for SOB with activity, SOB at rest, SOB orthopnea SOB lying down or Cough GI GI: Negative nausea, vomiting or heartburn Neuro Neuro: Negative for dizziness, lightheadedness, near syncope or weakness Endo Endo: Negative for fatigue Cardiology Exam Const Appearance: cooperative, healthy appearing, no acute distress, well developed and well groomed Nutritional Appearance: average body habitus and well nourished Orientation: alert, awake and oriented x3 Head Head: normal to inspection, normocephalic and atraumatic Ears: hearing grossly normal bilaterally and external ears normal Nose: external nose normal, nares normal, nasal mucous membranes and turbinates normal, septum normal and no nasal discharge Face and Sinus: face symmetric Mouth: oral mucosae normal, tongue normal, oropharynx normal and moist mucous membranes Teeth and gingiva: dentition normal Throat: posterior oropharynx normal, tonsils normal and uvula midline Eyes General: appearance normal, both eyes and all related structures Eyelids: eyelids norm (more content not included)... Normal [facility] 12 Lead EKGon 01-13-2025 12 Lead EKG [facility] Cardiovascular Services [address] [place] [address] 12 Lead EKG 01/13/25 1003 MR#: [id number] Acct: [id number] Name: CALEB MASSEY Rep #: [id number] : 1955 69 From: Caleb Alvarado MD Attending Dr: Dr. Ganesh Watkins MD Status: [facility] Ordering Dr: Jamel Vazquez MD Date: 01/13/25 Location: [facility] Sex: M C Admitted: Test Reason : EKG CHANGES Blood Pressure : */* mmHG Vent. Rate : 68 BPM Atrial Rate : 68 BPM P-R Int : 154 ms QRS Dur : 88 ms QT Int : 426 ms P-R-T Axes : 29 -51 17 degrees QTcB Int : 452 ms Normal sinus rhythm Left axis deviation Cannot rule out Inferior infarct , age undetermined Abnormal ECG When compared with ECG of 01-Jan-2025 06:40, No significant change was found Confirmed by Caleb Alvarado ([id number]), fashion editor OLIVA POZO ([id number]) on 01/14/2025 5:49:08 AM Referred By: Ganesh Watkins Confirmed By: Caleb Alvarado 01/14/25 0549 Date Caleb Alvarado MD CC: Dr. Ganesh Watkins MD; Dr. Jamel Vazquez MD; Dr. Cain Moore MD Signed [facility] MR/POSTOP.ANE 01-13-2025 MR[facility] Medical Records Department [address] [place] [address] Anesthesia Postop Eval I 01/13/25 1032 MR#: [id number] Acct: [id number] Name: CALEB MASSEY Rep #: [id number] : 1955 69 From: Jamel Vazquez MD PCP: Dr. Cain Moore MD Status:[facility] Y Race: C Location: [place] [address] Anesthesia: Postop Eval I Current Vital Signs Temperature: 97.3 F Pulse Rate: 73 Blood Pressure: 125/82 Respiratory Rate: 16 Pulse Ox: 99 Oxygen Delivery Method: Room Air Assessment Airway patent: Yes Spontaneous unlabored respirations: Yes Mental status: Awake and Calm nausea: No Vomiting: No Anesthesia Complication: Yes Anesthesia Complication Comment:: patient was noted to go into a LBBB and decrease HR in mid 30's after induction per DIETITIAN ASSISTANT and Dr. Watkins. Decision was made to cancel for further evaluation. in recovery patient with normal vs, no cardiac symptoms and normal EKG. patient will have eval. set up per DR. Villa office. Fluid Hydration Crystalloid volume administer (ml): 200 Total IV fluid infused: 200 Progress Note Anesthesia document: Postop Eval 1 completed: Yes 01/13/25 1036 Date [facility] Date CC: Signed Normal [facility] MR/[id number] 01-13-2025 MR/POSTOPAN2 [facility] Medical Records Department [address] [place] [address] Anesthesia Postop Eval II 01/13/25 1036 MR#: [id number] Acct: [id number] Name: CALEB MASSEY Rep #: [id number] : 1955 69 From: Jamel Vazquez MD PCP: Dr. Cain Moore MD Status:REG SDC Y Race: C Location: [place] [address] Anesthesia Postop Eval I Sum Postop Eval Completion status Anesthesia document: Postop Eval 1 completed: Yes Anesthesia Postop Eval I Summary Anesthesia Postop Eval I Summary: Anesthesia Postop Eval I: Assessment Summary Airway patent Yes 01/13/25 10:36 Spontaneous unlabored Yes 01/13/25 10:36 respirations Mental status Awake,Calm 01/13/25 10:36 nausea No 01/13/25 10:36 Vomiting No 01/13/25 10:36 Anesthesia Postop Eval I: Fluid Summary Crystalloid volume administer 200 01/13/25 10:36 (ml) Colloids volume administered ( ml) Blood Product volume administered (ml) Total IV fluid infused 200 01/13/25 10:36 Anesthesia Postop Eval I: Summary Notes Anesthesia Complication Yes 01/13/25 10:36 Anesthesia Complication patient was noted 01/13/25 10:36 Comment: to go into a LBBB and decrease HR in mid 30's after induction per DIETITIAN ASSISTANT and Dr. Watkins. Decision was made to cancel for further evaluation . in recovery patient with normal vs, no cardiac symptoms and normal EKG. patient will have eval. set up per DR. Villa office. Post-operative progress note Anesthesia: Postop Eval II Evaluation Mental status: Awake and Calm Pain Level: 0 nausea: No Vomiting: No Progress Note Post-operative progress note: see post op 1 note 01/13/25 1036 Date Jamel Logan Signature: Date CC: Signed Normal [facility] 12 Lead EKGon 01-01-2025 12 Lead EKG [facility] Cardiovascular Services [address] [place] [address] 12 Lead EKG 01/01/25 0640 MR#: [id number] Acct: [id number] Name: CALEB MASSEY Rep #: [id number] : 1955 69 From: Caleb Alvarado MD Attending Dr: Dr. Ganesh Watkins MD Status: PRE SDC Ordering Dr: Jaskaran Thompson MD Date: 01/01/25 Location: [facility] Sex: M C Admitted: Test Reason : PREOP Blood Pressure : */* mmHG Vent. Rate : 61 BPM Atrial Rate : 61 BPM P-R Int : 146 ms QRS Dur : 92 ms QT Int : 414 ms P-R-T Axes : 37 -33 34 degrees QTcB Int : 416 ms Normal sinus rhythm Left axis deviation Abnormal ECG Confirmed by Caleb Alvarado ([id number]), fashion editor OLIVA POZO ([id number]) on 01/01/2025 1:19:16 PM Referred By: Ganesh Watkins Confirmed By: Caleb Alvarado 01/01/25 879 Date Caleb Alvarado MD CC: Dr. Ganesh Watkins MD; Dr. Jaskaran Thompson MD; Dr. Cain Moore MD Signed Normal [facility] Electrocardiogram reportOrde red By: Caleb Alvarado on 01-01-2025 EKG study [facility] Cardiovascular Services [address] [place] [address] 12 Lead EKG 01/01/25 0640 MR#: [id number] Acct: [id number] Name: CALEB MASSEY Rep #:[id number] : 1955 69 From: Caleb dover MD Attending Dr: Dr. Ganesh Watkins MD Status: PRE [facility] Ordering Dr: Jaskaran Thompson MD Date: Location: [facility] Sex: M C Admitted: Test Reason : PREOP Blood Pressure : */* mmHG Vent. Rate : 61 BPM Atrial Rate : 61 BPM P-R Int : 146 ms QRS Dur : 92 ms QT Int : 414 ms P-R-T Axes : 37 -33 34 degrees QTcB Int : 416 ms Normal sinus rhythm Left axis deviation Abnormal ECG Confirmed by Caleb Alvarado ([id number]), OLIVA Cordova ([id number]) on 01/01/2025 1:19:16 PM Referred By: Ganesh Watkins Confirmed By: Caleb Alvarado 01/01/25 8736 Date _ Caleb Alvarado MD CC: Dr. Ganesh Watkins MD; Dr. Jaskaran Thompson MD; Dr. Cain Moore MD ~ Signed [facility] Work Phone: MR/PATMakeda 01-01-2025 MR/PAT.ANE [facility] Medical Records Department [address] [place] [address] PAT - Anesthesia 01/01/25 09 MR#: [id number] Acct: [id number] Name: CALEB MASSEY Rep #: [id number] : 1955 69 From: Jaskaran Thompson MD PCP: Dr. 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 Female No 12/27/24 14:58 HX of Motion [...] 12/25/24 07:59 Respiratory Assessment Respiratory Assessment - 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: Respiratory Tract Infection Hx - 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 Hx Respiratory Tract Infection No 12/27/24 14:58 STOP Sleep Apnea STOP Sleep Apnea - 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: STOP Sleep Apnea - 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 Hx Hypertension No 12/27/24 14:58 Hx Sleep [...] Tobacco Use History Tobacco Use History - 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: Tobacco Use History - 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 Specify any problems Hx of Preganancy in last 3 N/A 12/27/24 14:58 Months Nurse Filling Out Transfusion MGRIFFITH 12/27/24 14:58 Questions: Date: 12/27/24 12/27/24 14:58 Time: 15:00 12/27/24 14:58 Patient unable to answer at this time (ie. 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 Normal [facility] Surgery Visit Reporton 12-25 Surgery Visit Report [facility] [address] [place] [address] OFFICE VISIT Date of Service: 12/25/24 MR#: [id number] Acct: [id number] Name: CALEB MASSEY Rep #: [id number] : 1955 Provider: Dr. Ganesh daly MD Age/Sex: 69/M Location: [facility] Status: Signed Intake Vital Signs 12/25/24 07:59 Height 5 ft 8 in Weight: 180 lb BMI 27.3 BP 165/75 H Blood Pressure Location Rt brachial Position Sitting Respiration 16 Intake Visit Reasons: UMBILICAL HERNIA Chief Complaint: umbilical hernia Oxygen Therapy Teacher Required: No Is patient in pain?: No [...] General: cooperative Orientation: alert and oriented x3 HENMT Head: normal to inspection Neck Neck: normal [...] bleeding, inf (more content not included)... Normal [facility] Abdomen/Pelvis WITH Contrast on 12-23-2024 Abdomen/Pelvis WITH Contrast [facility] Imaging Services [address] [place] [address] Abdomen/Pelvis WITH Contrast MR#: [id number] Acct: [id number] Name: CALEB MASSEY Rep #: [id number] : 1955 M 69 From: Jeremy yeung MD PCP: Dr. Cain Moore MD Status: REG CLI Study: Abdomen/Pelvis WITH Contrast Date of Exam: Exam# [id number] Ordering Dr: Cain Moore MD PROCEDURE: ABDOMEN/PELVIS [...] Tiny nonobstructive left intrarenal calculus. Reading Location: [id number] CC: Dr. Cain Moore MD Precision Lens Technician: Signed Normal [facility] Absolute lymphocyte countOrd ered By: Cain Moore on 12-12-2024 Lymphocytes Auto (Unsp spec) [#/Vol] 1.17 10*3/uL 0.83-4.51 [facility] Absolute neutrophil countOrd ered By: Cain Moore on 12-12-2024 Neutrophils (Bld) [#/Vol] 4.7 10*3/uL 2.0-7.7 [facility] Amylaseon 12-12-2024 JULIET 68 U/L Normal 28-100 [facility] Comment on above: Performed By: #### L 501.2450, L100.0100, L501.2400, L500.4050 #### [facility] [address] [place], [address] Anion gap in Serum or Plasma Ordered By: Cain Floreske on 12-12-2024 Anion gap [Moles/Vol] 13 mmol/L 5-15 [facility] Automated lymphocyte count a s percentage of total leukocytesOrdered By: Cain Floreske on 12-12-2024 Lymphocytes/100 WBC Auto (Unsp spec) 17.7 % Low 19-41 [facility] BUN/creatinine ratioOrdered By: Cain Oscar on 12-12-2024 Urea nitrogen/Creatinine [Mass ratio] 21.5 mg/mg High 10-20 [facility] Basophil percentageOrdered B y: Cain Floreske on 12-12-2024 Basophils/100 WBC (Bld) 0.3 % 0-1 [facility] Bilirubin, totalOrdered By: Cain Floreske on 12-12-2024 Bilirubin [Mass/Vol] 0.88 mg/dL 0.00-1.30 [facility] CBC W/Diff, Automatedon 11-29 Absolute Lymph 1.17 X10 3/uL Normal 0.83-4.51 [facility] Comment on above: Performed By: #### L 501.2450, L100.0100, L501.2400, L500.4050 #### [facility] [address] [place], [address] Absolute Neut 4.7 X10 3/uL Normal 2.0-7.7 [facility] Comment on above: Performed By: #### L 501.2450, L100.0100, L501.2400, L500.4050 #### [facility] [address] [place], [address] Basophils/100 WBC (Bld) 0.3 % Normal 0-1 [facility] Comment on above: Performed By: #### L 501.2450, L100.0100, L501.2400, L500.4050 #### [facility] [address] [place], [address] Eosinophils/100 WBC (Bld) 0.9 % Normal 0-5 [facility] Comment on above: Performed By: #### L 501.2450, L100.0100, L501.2400, L500.4050 #### [facility] [address] [place], [address] Erythrocyte distribution width (RBC) [Ratio] 12.7 % Normal 11.6-14.6 [facility] Comment on above: Performed By: #### L 501.2450, L100.0100, L501.2400, L500.4050 #### [facility] [address] [place], [address] Hematocrit (Bld) [Volume fraction] 41.1 % Normal 40-54 [facility] Comment on above: Performed By: #### L 501.2450, L100.0100, L501.2400, L500.4050 #### [facility] [address] [place], [address] Hemoglobin (Bld) [Mass/Vol] 13.8 g/dL Normal 13.0-16.5 [facility] Comment on above: Performed By: #### L 501.2450, L100.0100, L501.2400, L500.4050 #### [facility] [address] [place], [address] IG% 0.500 Normal 0.0-0.9 [facility] Comment on above: Result Comment: IG% - Immature Granulocytes (promyelocytes, myelocytes and metamyelocytes) > 1% indicates that a LEFT SHIFT is Present. Performed By: #### L 501.2450, L100.0100, L501.2400, L500.4050 #### [facility] [address] [place], [address] Lymphocytes/100 WBC (Bld) 17.7 % Low 19-41 [facility] Comment on above: Performed By: #### L 501.2450, L100.0100, L501.2400, L500.4050 #### [facility] [address] [place], [address] MCH (RBC) [Entitic mass] 30.7 pg Normal 27.0-32.0 [facility] Comment on above: Performed By: #### L 501.2450, L100.0100, L501.2400, L500.4050 #### [facility] [address] [place], [address] MCHC (RBC) [Mass/Vol] 33.6 g/dL Normal 32-36 [facility] Comment on above: Performed By: #### L 501.2450, L100.0100, L501.2400, L500.4050 #### [facility] [address] [place], [address] MCV (RBC) [Entitic vol] 91.5 fL Normal 80-94 [facility] Comment on above: Performed By: #### L 501.2450, L100.0100, L501.2400, L500.4050 #### [facility] [address] [place], [address] Monocytes/100 WBC (Bld) 9.1 % Normal 0-10 [facility] Comment on above: Performed By: #### L 501.2450, L100.0100, L501.2400, L500.4050 #### [facility] [address] [place], [address] Neutrophils/100 WBC (Bld) 71.5 % High 47-70 [facility] Comment on above: Performed By: #### L 501.2450, L100.0100, L501.2400, L500.4050 #### [facility] [address] [place], [address] Nucleated RBC (Bld) [#/Vol] 0 10*3/uL Normal 0-5 [facility] Comment on above: Performed By: #### L 501.2450, L100.0100, L501.2400, L500.4050 #### [facility] [address] [place], [address] Platelet mean volume (Bld) [Entitic vol] 11.2 fL Normal 6.2-12.0 [facility] Comment on above: Performed By: #### L 501.2450, L100.0100, L501.2400, L500.4050 #### [facility] [address] [place], [address] Platelets (Bld) [#/Vol] 266 10*3/uL Normal 150-450 [facility] Comment on above: Performed By: #### L 501.2450, L100.0100, L501.2400, L500.4050 #### [facility] [address] [place], [address] RBC (Bld) [#/Vol] 4.49 10*6/uL Low 4.6-6.2 [facility] Comment on above: Performed By: #### L 501.2450, L100.0100, L501.2400, L500.4050 #### [facility] [address] [place], [address] RDW SD 42.8 fl Normal 35.1-43.9 [facility] Comment on above: Performed By: #### L 501.2450, L100.0100, L501.2400, L500.4050 #### [facility] [address] [place], [address] WBC (Bld) [#/Vol] 6.6 10*3/uL Normal 4.4-11.0 [facility] Comment on above: Performed By: #### L 501.2450, L100.0100, L501.2400, L500.4050 #### [facility] [address] [place], [address] Carbon dioxide, total [Moles /volume] in Central venous bloodOrdered By: Cain Moore on 12-12-2024 CO2 [Moles/Vol] 22.9 mmol/L 21.0-32.0 [facility] Chloride assayOrdered By: Hugh Moore on 12-12-2024 Chloride [Moles/Vol] 104 mmol/L 98-108 [facility] Comprehensive Metabolic Prof ilon 12-12-2024 Albumin [Mass/Vol] 4.3 g/dL Normal 3.4-4.8 [facility] Comment on above: Performed By: #### L 501.2450, L100.0100, L501.2400, L500.4050 #### [facility] [address] [place], [address] Albumin/Globulin [Mass ratio] 1.5 {ratio} Normal 0.9-2.4 [facility] Comment on above: Performed By: #### L 501.2450, L100.0100, L501.2400, L500.4050 #### [facility] [address] [place], [address] ALK PHOS 48 U/L Normal 40-129 [facility] Comment on above: Performed By: #### L 501.2450, L100.0100, L501.2400, L500.4050 #### [facility] [address] [place], [address] ALT [Catalytic activity/Vol] 22 U/L Normal <=46 [facility] Comment on above: Performed By: #### L 501.2450, L100.0100, L501.2400, L500.4050 #### [facility] [address] [place], [address] AST [Catalytic activity/Vol] 22 U/L Normal <=37 [facility] Comment on above: Performed By: #### L 501.2450, L100.0100, L501.2400, L500.4050 #### [facility] [address] [place], [address] Bilirubin [Mass/Vol] 0.88 mg/dL Normal 0.00-1.30 [facility] Comment on above: Performed By: #### L 501.2450, L100.0100, L501.2400, L500.4050 #### [facility] [address] [place], [address] BUN/CRE 21.5 RATIO High 10-20 [facility] Comment on above: Performed By: #### L 501.2450, L100.0100, L501.2400, L500.4050 #### [facility] [address] [place], [address] Calcium [Mass/Vol] 9.4 mg/dL Normal 7.6-11.0 [facility] Comment on above: Performed By: #### L 501.2450, L100.0100, L501.2400, L500.4050 #### [facility] [address] [place], [address] Chloride [Moles/Vol] 104 mmol/L Normal 98-108 [facility] Comment on above: Performed By: #### L 501.2450, L100.0100, L501.2400, L500.4050 #### [facility] [address] [place], [address] CO2 [Moles/Vol] 22.9 mmol/L Normal 21.0-32.0 [facility] Comment on above: Performed By: #### L 501.2450, L100.0100, L501.2400, L500.4050 #### [facility] [address] [place], [address] Creatinine [Mass/Vol] 1.02 mg/dL Normal 0.70-1.20 [facility] Comment on above: Performed By: #### L 501.2450, L100.0100, L501.2400, L500.4050 #### [facility] [address] [place], [address] GAP 13 Normal 5-15 [facility] Comment on above: Performed By: #### L 501.2450, L100.0100, L501.2400, L500.4050 #### [facility] [address] [place], [address] GFR/1.73 sq M.predicted among non-blacks MDRD (S/P/Bld) [Vol rate/Area] 81 mL/min/{1.73_m2} Normal >60 [facility] Comment on above: Result Comment: mL/m in/1.73m2 CKD-EPI Creatinine Equation (2020) Performed By: #### L 501.2450, L100.0100, L501.2400, L500.4050 #### [facility] [address] [place], [address] Globulin (S) [Mass/Vol] 2.8 g/dL Normal 2.2-4.2 [facility] Comment on above: Performed By: #### L 501.2450, L100.0100, L501.2400, L500.4050 #### [facility] [address] [place], [address] Glucose [Mass/Vol] 94 mg/dL Normal 70-99 [facility] Comment on above: Performed By: #### L 501.2450, L100.0100, L501.2400, L500.4050 #### [facility] [address] [place], [address] Potassium [Moles/Vol] 4.3 mmol/L Normal 3.3-5.1 [facility] Comment on above: Performed By: #### L 501.2450, L100.0100, L501.2400, L500.4050 #### [facility] [address] [place], [address] Sodium [Moles/Vol] 139 mmol/L Normal 133-145 [facility] Comment on above: Performed By: #### L 501.2450, L100.0100, L501.2400, L500.4050 #### [facility] [address] [place], [address] T PROT 7.1 g/dL Normal 5.9-8.4 [facility] Comment on above: Performed By: #### L 501.2450, L100.0100, L501.2400, L500.4050 #### [facility] [address] [place], [address] Urea nitrogen [Mass/Vol] 22 mg/dL High 4-19 [facility] Comment on above: Performed By: #### L 501.2450, L100.0100, L501.2400, L500.4050 #### [facility] [address] [place], [address] Eosinophil percentageOrdered By: Cain Moore on 12-12-2024 Eosinophils/100 WBC (Bld) 0.9 % 0-5 [facility] Erythrocyte distribution wid th ratioOrdered By: Cain Moore on 12-12-2024 Erythrocyte distribution width (RBC) [Ratio] 12.7 % 11.6-14.6 [facility] Erythrocyte distribution wid th standard deviationOrdered By: Cain Moore on 12-12-2024 Erythrocyte distribution width (RBC) [Ratio] 42.8 fl 35.1-43.9 [facility] Glomerular filtration rate ( GFR) estimation/1.73 sq m using serum, plasma, or whole bOrdered By: Cain Moore on 12-12-2024 GFR/1.73 sq M.predicted among non-blacks MDRD (S/P/Bld) [Vol rate/Area] 81 mL/min/{1.73_m2} >60 [facility] Comment on above: mL/min/1.73m2 CKD-EP I Creatinine Equation (2020) Hematocrit Auto (Bld) [Volum e fraction]Ordered By: Cain Moore on 12-12-2024 Hematocrit (Bld) [Volume fraction] 41.1 % 40-54 [facility] Hemoglobin measurementOrdere d By: Cain Moore on 12-12-2024 Hemoglobin (Bld) [Mass/Vol] 13.8 g/dL 13.0-16.5 [facility] Immature granulocytes/100 WB C Auto (Bld)Ordered By: Cain Moore on 12-12-2024 Immature granulocytes/100 WBC (Bld) 0.500 % 0.0-0.9 [facility] Comment on above: IG% - Immature Granu locytes (promyelocytes, myelocytes and metamyelocytes) > 1% indicates that a LEFT SHIFT is Present. Laboratory - Chemistry and C hemistry - challengeOrdered By: Cain Moore on 12-12-2024 AST [Catalytic activity/Vol] 22 U/L <38 [facility] Lipaseon 12-12-2024 Lipase [Catalytic activity/Vol] 38 U/L Normal 13-75 [facility] Comment on above: Result Comment: Kaitlin baker note: LIPASE revised reference range effective 22. New Lipase methodology. Expected to produce lower values than the previous assay method. NEW Reference Range: 13 - 75 U/L Performed By: #### L 501.2450, L100.0100, L501.2400, L500.4050 #### [facility] [address] [place], [address] Lipase measurementOrdered By : [facility] Townshipxavier Moore on 12-12-2024 Lipase [Catalytic activity/Vol] 38 U/L 13-75 [facility] Comment on above: Please note:LIPASE r evised reference range effective 22. New Lipase methodology. Expected to produce lower values than the previous assay method. NEW Reference Range: 13 - 75 U/L MCV (mean corpuscular volume ) determinationOrdered By: Cain Moore on 12-12-2024 MCV (RBC) [Entitic vol] 91.5 fL 80-94 [facility] Mean corpuscular hemoglobin (MCH) determinationOrdered By: Cain Moore on 12-12-2024 MCH (RBC) [Entitic mass] 30.7 pg 27.0-32.0 [facility] Mean corpuscular hemoglobin concentration (MCHC) determinationOrdered By: Cain Oscar on 12-12-2024 MCHC (RBC) [Mass/Vol] 33.6 g/dL 32-36 [facility] Mean platelet volume determi nationOrdered By: Cain Moore on 12-12-2024 Platelet mean volume (Bld) [Entitic vol] 11.2 fL 6.2-12.0 [facility] Monocyte percentageOrdered B y: Cassxavier Oscar on 12-12-2024 Monocytes/100 WBC (Bld) 9.1 % 0-10 [facility] Neutrophil percentageOrdered By: Cain Moore on 12-12-2024 Neutrophils/100 WBC (Bld) 71.5 % High 47-70 [facility] Nucleated red blood cell per centageOrdered By: Cain Moore on 12-12-2024 Nucleated RBC/100 WBC (Bld) [Ratio] 0 % 0-5 [facility] Platelet countOrdered By: Hugh Moore on 12-12-2024 Platelets (Bld) [#/Vol] 266 10*3/uL 150-450 [facility] Potassium measurement (mass/ volume)Ordered By: Cain Moore on 12-12-2024 Potassium (Unsp spec) [Mass/Vol] 4.3 mmol/L 3.3-5.1 [facility] RBC Auto (Bld) [#/Vol]Ordere d By: Cain Moore on 12-12-2024 RBC (Bld) [#/Vol] 4.49 10*6/uL Low 4.6-6.2 [facility] Serum creatinine measurement (mass/volume)Ordered By: Cain Moore on 12-12-2024 Creatinine [Mass/Vol] 1.02 mg/dL 0.70-1.20 [facility] Serum globulin measurementOr dered By: Cain Moore on 12-12-2024 Globulin (S) [Mass/Vol] 2.8 g/dL 2.2-4.2 [facility] Serum glucose measurement (m ass/volume)Ordered By: Cain Moore on 12-12-2024 Glucose [Mass/Vol] 94 mg/dL 70-99 [facility] Serum or plasma alanine velarde otransferase (ALT) measurementOrdered By: Cain Moore on 12-12-2024 ALT [Catalytic activity/Vol] 22 U/L <47 [facility] Serum or plasma albumin cem urement (mass/volume)Ordered By: Cain Moore on 12-12-2024 Albumin [Mass/Vol] 4.3 g/dL 3.4-4.8 [facility] Serum or plasma albumin/glob ulin mass ratioOrdered By: Cain Moore on 12-12-2024 Albumin/Globulin [Mass ratio] 1.5 {ratio} 0.9-2.4 [facility] Serum or plasma alkaline agustin sphatase measurementOrdered By: Cain Moore on 12-12-2024 ALP [Catalytic activity/Vol] 48 U/L 40-129 [facility] Serum or plasma amylase cem urement (enzymatic activity/volume)Ordered By: Cain Moore on 12-12-2024 Amylase [Catalytic activity/Vol] 68 U/L 28-100 [facility] Serum or plasma calcium cem urement (mass/volume)Ordered By: Cain Moore on 12-12-2024 Calcium [Mass/Vol] 9.4 mg/dL 7.6-11.0 [facility] Serum or plasma urea nitroge n measurement (mass/volume)Ordered By: Cain Moore on 12-12-2024 Urea nitrogen [Mass/Vol] 22 mg/dL High 4-19 [facility] Sodium levelOrdered By: Cass Moore on 12-12-2024 Sodium [Moles/Vol] 139 mmol/L 133-145 [facility] Total proteinOrdered By: Erinn Moore on 12-12-2024 Protein [Mass/Vol] 7.1 g/dL 5.9-8.4 [facility] White blood cell (WBC) count Ordered By: Cain Floreske on 12-12-2024 WBC (Bld) [#/Vol] 6.6 10*3/uL 4.4-11.0 [facility] Calculated very low density lipoprotein (VLDL) cholesterol measurementOrdered By: Juliet Woods on 07-30-2024 VLDL Cholesterol 19 mg/dL 5-40 [facility] LDL calc ser/plasOrdered By: Juliet Woods on 07-30-2024 LDL Cholesterol, Calculated 192 mg/dL [facility] Comment on above: Qvdwrugoav=079-553 m g/dL & Higher Kqyt=759 mg/dL or greater Lipid Profileon 07-30-2024 CHOL:HDL 4.87 Normal [facility] Comment on above: Order Comment: Order Date: 07/30/24 Order Info: [id number] - LIPID Order Info: [id number] - TSH Order Info: [id number] - PSA Performed By: #### L 500.4100, L501.9520, L501.9910 #### [facility] [address] [place], [address] Cholesterol [Mass/Vol] 265 mg/dL High <=200 [facility] Comment on above: Order Comment: Order Date: 07/30/24 Order Info: [id number] - LIPID Order Info: [id number] - TSH Order Info: [id number] - PSA Result Comment: Chol esterol level, Desirable <200 mg/dL Borderline high cholesterol 200-239 mg/dL High cholesterol >=240 mg/dL Recommendations of the NCEP Adult Treatment Panel for the following risk-cutoff thresholds for the [place] population. Performed By: #### L 500.4100, L501.9520, L501.9910 #### [facility] [address] [place], [address] Cholesterol in HDL [Mass/Vol] 54 mg/dL Normal [facility] Comment on above: Order Comment: Order Date: 07/30/24 Order Info: [id number] - LIPID Order Info: [id number] - TSH Order Info: [id number] - PSA Result Comment: Yenny onal Cholesterol Education Program (NCEP) guidelines: <40 mg/dL: Low HDL-cholesterol (major risk factor for CHD) >= 60 mg/dL: High HDL-cholesterol (negative risk factor for CHD) HDL-cholesterol is affected by a number of factors, e.g. smoking, exercise, hormones, sex and age. Performed By: #### L 500.4100, L501.9520, L501.9910 #### [facility] [address] [place], [address] Cholesterol in LDL [Mass/Vol] 192 mg/dL Normal [facility] Comment on above: Order Comment: Order Date: 07/30/24 Order Info: [id number] - LIPID Order Info: [id number] - TSH Order Info: [id number] - PSA Result Comment: Bord ghryvj=807-966 mg/dL Higher Nxdu=875 mg/dL or greater Performed By: #### L 500.4100, L501.9520, L501.9910 #### [facility] [address] [place], [address] Cholesterol in VLDL [Mass/Vol] 19 mg/dL Normal 5-40 [facility] Comment on above: Order Comment: Order Date: 07/30/24 Order Info: [id number] - LIPID Order Info: [id number] - TSH Order Info: [id number] - PSA Performed By: #### L 500.4100, L501.9520, L501.9910 #### [facility] [address] [place], [address] Triglyceride [Mass/Vol] 93 mg/dL Normal [facility] Comment on above: Order Comment: Order Date: 07/30/24 Order Info: [id number] - LIPID Order Info: [id number] - TSH Order Info: [id number] - PSA Result Comment: The drugs N-Acetylcysteine and Metamizole may falsely depress this assay. Normal range: <150 mg/dL Borderline High: 150-199 mg/dL High: 200-499 mg/dL Very High: >500 mg/dL Performed By: #### L 500.4100, L501.9520, L501.9910 #### [facility] [address] [place], [place], [id number] PSA, total screeningOrdered By: Juliet Woods on 07-30-2024 Prostate Specific Antigen Screen 1.32 ng/mL 0.02-4.00 [facility] Comment on above: This test was perfor med using the [employer] tPSA method. Measured values of a patient sample can vary depending on the testing procedure used. PSA values determined on patient samples by different testing procedures cannot be used interchangeably. If there is a change in PSA assays while monitoring therapy, sequential testing should be performed to confirm baseline values. PSA,Total - Annual Screenon 07-30-2024 PSA,TOT SCREEN 1.32 ng/mL Normal 0.02-4.00 [facility] Comment on above: Order Comment: Order Date: 07/30/24 Order Info: [id number] - LIPID Order Info: [id number] - TSH Order Info: [id number] - PSA Result Comment: This [...] By: #### L 500.4100, L501.9520, L501.9910 #### [facility] [address] [place], [place], [address] Screening total cholesterol/ high density lipoprotein (HDL) cholesterol ratioOrdered By: Juliet Woods on 07-30-2024 Cholesterol.total/Choles terol in HDL [Mass ratio] 4.87 {ratio} [facility] Serum or plasma cholesterol in HDL measurement (mass/volume)Ordered By: Juliet Woods on 07-30-2024 Cholesterol in HDL [Mass/Vol] 54 mg/dL >40 [facility] Comment on above: National Cholesterol Education Program (NCEP) guidelines:<40 mg/dL: Low HDL-cholesterol (major risk factor for CHD)>= 60 mg/dL: High HDL-cholesterol (negative risk factor for CHD)HDL-cholesterol is affected by a number of factors, e.g. smoking, exercise, hormones, sex and age. Serum or plasma cholesterol measurement (mass/volume)Ordered By: Juliet Woods on 07-30-2024 Cholesterol [Mass/Vol] 265 mg/dL High <201 [facility] Comment on above: Cholesterol level, D esirable <200 mg/dLBorderline high cholesterol 200-239 mg/dLHigh cholesterol >=240 mg/dLRecommendations of the NCEP Adult Treatment Panel for the following risk-cutoff thresholds for the [place] population. TSH DL <= 0.005 mIU/L QnOrde red By: Juliet Woods on 07-30-2024 Thyroid Stimulating Hormone (TSH) 2.370 uIU/mL 0.300-4.200 [facility] Thyroid Stim Hormone (TSH)on 07-30-2024 TSH 2.370 uIU/mL Normal 0.300-4.200 [facility] Comment on above: Order Comment: Order Date: 07/30/24 Order Info: [id number] - LIPID Order Info: [id number] - TSH Order Info: [id number] - PSA Performed By: #### L 500.4100, L501.9520, L501.9910 #### [facility] [address] [place], [place], [address] Triglycerides measurementOrd ered By: Juliet Woods on 07-30-2024 Triglyceride [Mass/Vol] 93 mg/dL <199 [facility] Comment on above: The drugs N-Acetylcy steine and Metamizole may falsely depress this assay. Normal range: <150 mg/dLBorderline High: 150-199 mg/dLHigh: 200-499 mg/dLVery High: >500 mg/dL Basophil percentageOrdered B y: Juliet Woods on 03-18-2023 Chloride [Moles/Vol] 107 mmol/L 98-[facility] Glucose [Mass/Vol] 94 mg/dL 74-106 [facility] Potassium [Moles/Vol] 4.7 mmol/L 3.5-5.1 [facility] Sodium [Moles/Vol] 138 mmol/L 136-145 [facility] - Chemistry and C hemistry - challengeOrdered By: Juliet Woods on 03-18-2023 CO2 [Moles/Vol] 30.0 mmol/L 21.0-32.0 [facility] Urea nitrogen/Creatinine [Mass ratio] 20.3 mg/mg 10- [facility] No Panel InformationOrdered By: Juliet Woods on 03-18-2023 Estimated GFR (MDRD) Amer 98 mL/min >60 [facility] Comment on above: GFR Calc Estimated GFR (MDRD) Non-Af Amer 81 mL/min >60 [facility] Comment on above: Non- GFR Calc Serum or plasma calcium cem urement (mass/volume)Ordered By: Juliet Woods on 03-18-2023 Calcium [Mass/Vol] 8.5 mg/dL 8.5-10.1 [facility] Serum or plasma creatinine m easurement (mass/volume)Ordered By: Juliet Woods on 03-18-2023 Creatinine [Mass/Vol] 0.98 mg/dL 0.70-1.30 [facility] Comment on above: The validity of the calculated GFR & GFRAA in patients over 70 years has not been determined. Clinical correlation is essential. Serum or plasma urea nitroge n measurement (mass/volume)Ordered By: Juliet Woods on 03-18-2023 Urea nitrogen [Mass/Vol] 20 mg/dL - [facility] Thin prep Papanicolaou smear with manual screeningOrdered By: Juliet Woods on 03-18-2023 Thin prep Papanicolaou smear with manual screening 1 5-15 [facility] Whole blood hemoglobin A1c/t otal hemoglobin ratio (mass fraction)Ordered By: Juliet Woods on 03-18-2023 HbA1c (Bld) [Mass fraction] 5.3 % 3.8-5.6 [facility] Comment on above: Normal < 5.7 % Predi abetic 5.7 - 6.4 % Diabetic >or= 6.5 % Please note range changes. Basophil percentageOrdered B y: Juliet Woods on 02-18-2023 Cholesterol [Mass/Vol] 297 mg/dL <200 [facility] Comment on above: <200 mg/dL Desirable 200-240 mg/dL Borderline >240 mg/dL High Risk Triglyceride [Mass/Vol] 83 mg/dL <199 [facility] Comment on above: The drugs N-Acetylcy steine and Metamizole may falsely depress this assay.Serum Triglycerides Reference Interval Normal <150 mg/dL Borderline high 150 - 199 mg/dL High 200 - 499 mg/dL Very High > or = 500 mg/dL No Panel InformationOrdered By: Juliet Woods on 02-18-2023 Prostate Specific Antigen Screen 1.52 ng/mL 0.00-4.00 [facility] Comment on above: This test was perfor med using the TPSA assay method for [employer] chemistry system. Values obtained with differentassay methods cannot be used interchangably.When changing PSA assays in the course of monitoring apatient, additional sequential testing should be carriedout to confirm baseline values. Serum or plasma cholesterol in HDL measurement (mass/volume)Ordered By: Juliet Woods on 02-18-2023 Cholesterol in HDL [Mass/Vol] 57 mg/dL >40 [facility] Comment on above: The drugs N-Acetylcy steine and Metamizole may falsely depress this assay. Reference Range HDL <40 mg/dL Low HDL Cholesterol HDL >or= 60 mg/dL High HDL Cholesterol Serum or plasma cholesterol in VLDL measurement (mass/volume)Ordered By: Juliet Woods on 02-18-2023 Cholesterol in VLDL [Mass/Vol] 17 mg/dL 5-40 [facility] Serum or plasma low density lipoprotein (LDL) cholesterol measurement (mass/volume)Ordered By: Juliet Woods on 02-18-2023 Cholesterol in LDL [Mass/Vol] 223 mg/dL 0-130 [facility] Vital Signs Date Time Vital Sign Value Performing Clinician Xavieri ele 02-05-2025 09:28040 Body height 162.56 cm Cain Moore MD Work Phone: [facility] 02-05-2025 09:28-0400 Body mass index (BMI) [Ratio] 29.2 kg/m2 Cain Moore MD Work Phone: [facility] 02-05-2025 09:28-0400 Body weight 77.11 kg Cain Moore MD Work Phone: [facility] 02-05-2025 09:28-0400 Diastolic blood pressure 82 mm[Hg] Cain Moore MD Work Phone: [facility] 02-05-2025 09:28-0400 Heart rate 62 /min Cain Moore MD Work Phone: [facility] 02-05-2025 09:28-0400 Respiratory rate 16 /min Cain Moore MD Work Phone: [facility] 02-05-2025 09:28-0400 Systolic blood pressure 155 mm[Hg] Cain Moore MD Work Phone: [facility] 01-13-2025 10:36-0400 Body temperature 97.3 [degF] Cain Moore MD Work Phone: [facility] 01-13-2025 10:36-0400 Diastolic blood pressure 82 mm[Hg] Cain Moore MD Work Phone: [facility] 01-13-2025 10:36-0400 Heart rate 73 /min Cain Moore MD Work Phone: [facility] 01-13-2025 10:36-0400 Respiratory rate 16 /min Cain Moore MD Work Phone: [facility] 01-13-2025 10:36-0400 SaO2% (BldA) [Mass fraction] 99 % Cain Moore MD Work Phone: [facility] 01-13-2025 10:36-0400 Systolic blood pressure 125 mm[Hg] Cain Moore MD Work Phone: [facility] 01-13-2025 07:44-0400 Body height 162.56 cm Cain Moore MD Work Phone: [facility] 01-13-2025 07:44-0400 Body mass index (BMI) [Ratio] 29.3 kg/m2 Cain Moore MD Work Phone: [facility] 01-13-2025 07:44-0400 Body weight 77.5 kg Cain Moore MD Work Phone: [facility] 12-25-2024 07:59-0400 Body height 172.72 cm Cain Moore MD Work Phone: [facility] 12-25-2024 07:59-0400 Body mass index (BMI) [Ratio] 27.3 kg/m2 Cain Moore MD Work Phone: [facility] 12-25-2024 07:59-0400 Body weight 81.64 kg Cain Moore MD Work Phone: [facility] 12-25-2024 07:59-0400 Diastolic blood pressure 75 mm[Hg] Cain Moore MD Work Phone: [facility] 12-25-2024 07:59-0400 Respiratory rate 16 /min Cain Moore MD Work Phone: [facility] 12-25-2024 07:59-0400 Systolic blood pressure 165 mm[Hg] Cain Moore MD Work Phone: [facility] Encounters Encounter Date Encounter Type Care Provider Facility Start: 03-12-2025 End: 03-12-2025 ambulatory Oliva Burris Facility:[facility] Start: 03-11-2025 Encounter for other preprocedural examination [facility] Start: 03-04-2025 ambulatory Carmen Vasquez NP Facili ty:[facility] Start: 03-03-2025 ambulatory Mary Puri Facility:[facility] Start: 03-03-2025 ambulatory [facility] Facility:[facility] Start: 03-03-2025 End: 03-03-2025 ambulatory [facility] Facility:[facility] Start: 02-05-2025 Encounter for other preprocedural examination Ganesh Watkins [facility] Start: 02-05-2025 End: 02-05-[address] Samy Franks MD -[facility] Work Phone: Start: 02-05-2025 End: 02-05-2025 ambulatory Cain Moore MD Work Phone: -[facility] Start: 01-13-2025 Non-patient / Non-visit Dr. Caleb Alvarado MD -[facility] Work Phone: Start: 01-13-2025 Preoperative state Cain Moore MD Work Phone: [facility] Start: 01-13-2025 ambulatory Ganesh Solis lity:[facility] Start: 01-13-2025 Non-patient / Non-visit Dr. Irina Watkins MD -[facility] Start: 01-13-2025 End: 01-13-2025 Admission to same day surgery center Dr. Ganesh Watkins [facility] Start: 01-13-2025 End: 01-13-2025 ambulatory Cain Moore MD Work Phone: [facility] Start: 01-01-2025 ambulatory Cain Moore Facility:[facility] Start: 01-01-2025 Non-patient / Non-visit Dr. Caleb Alvarado MD -[facility] Work Phone: Start: 12-25-2024 End: 12-25-[address] Ganesh Watkins MD -[facility] Work Phone: Start: 12-25-2024 End: 12-25-2024 ambulatory Cain Moore MD Work Phone: -[facility] Start: 12-23-2024 End: 12-23-2024 ambulatory Cain Moore MD Work Phone: -[facility] Start: 12-23-2024 End: 12-23-[address] Cain Moore MD -[facility] Work Phone: Start: 12-23-2024 End: 12-23-2024 ambulatory Cain Moore Facility:[facility] Start: 12-12-2024 End: 12-12-2024 ambulatory Cain Moore MD Work Phone: -[facility] Start: 12-12-2024 End: 12-12-[address] Cain Moore MD -Laboratory [facility] Start: 12-12-2024 End: 12-12-2024 ambulatory Cain Moore Facility:[facility] Start: 07-30-2024 End: 07-30-[address] Juliet Woods MD Work Phone: [facility] Work Phone: Start: 07-30-2024 End: 07-30-[address] Juliet Woods MD -Laboratory, [place] Work Phone: Start: 07-30-2024 End: 07-30-2024 ambulatory Juliet Woods Facility:[facility] Start: 03-18-2023 End: 03-18-2023 ambulatory [facility] Work Phone: Start: 03-18-2023 End: 03-18-2023 Patient encounter procedure [facility] Work Phone: Start: 02-18-2023 End: 02-18-2023 ambulatory [facility] Work Phone: Start: 02-18-2023 End: 02-18-2023 Patient encounter procedure [facility] Work Phone: Procedures Date Procedure Procedure Detail Performing Clinician Start: 01-13-2025 Lap Robotic Inguinal Hernia (Left) Cain Moore MD Work Phone: Start: 12-23-2024 Computed tomography of abdomen and pelvis with contrast Cain Moore MD Work Phone: Plan of Treatment Date Care Activity Detail Author Start: 03-24-2025 ambulatory Ambulatory Facility:[facility] Start: 02-05-2025 End: 02-05-2025 Evaluation of diagnostic study results [facility] Start: 01-13-2025 Anesthesia hernia repair lower abdomen nos ANESTH REPAIR OF HERNIA [facility] Start: 01-13-2025 Rpr 1st ingun hrna a ge 5 yrs/> reducible PRP I/DOUGIE INIT REDUC >5 YR [facility] Start: 01-13-2025 RPR AA HRN 1ST < 3 C M RDC RPR AA HRN 1ST < 3 CM RDC [facility] Start: 01-13-[address] [facility] Start: 12-23-2024 Computed tomography of abdomen and pelvis with contrast Abdomen/Pelvis WITH Contrast [facility] Immunizations Immunization Date Immunization Notes Care Provider Fa cility 08-04-2020 Covid (Pfizer) [facility] 07-14-2020 Covid (Pfizer) [facility] Payers Date Payer Category Payer Medicare [id number] 2024 Self-pay [id number] 2024 Unknown [id number] Unknown [id number] Unknown [id number] 2.16.8 [id number] Unknown [id number] 2.16.8 [id number] Unknown [id number] 2.16.8 [id number] Unknown [id number] 2.16.8 [id number] Unknown [id number] 2.16.8 [id number] Unknown [id number] 2.16.8 [id number] Unknown [id number] 2.16.8 [id number] Unknown [id number] 2.16.8 [id number] Unknown [id number] 2.16.8 [id number] Unknown [id number] 2.16.8 [id number] Unknown [id number] 2.16.8 [id number] Unknown [id number] 2.16.8 [id number] Unknown [id number] 2.16.8 [id number] Unknown [id number] 2.16.8 [id number] Social History Date Type Detail Facility Start: 04-05-2019 End: 04-05-2019 Tobacco smoking status NHIS Unknown if ever smoked [facility] Start: 12-11-2018 None [facility] Start: 12-11-2018 Spouse/ Signif icant Other [facility] Start: 1955 Sex Assigned At Male [facility] Start: 04-05-2019 End: 12-27-2024 Tobacco smoking status NHIS Never smoked tobacco (finding) [facility] Start: 08-03-2024 Sex Male (finding) [facility] Sex Male [facility] Goals Date Patient Goal Desired Activity /State Mental Status Date Assessment Result Facility 01-13-2025 Cognitive function Level Of Cons ciousness Follows Commands;Drowsy [facility] Work Phone: 01-13-2025 Cognitive function Voice/Name [facility] Work Phone: Clinical Notes 12-25-2024 to 01-13-2025 Note Date & Type Note Facility 01-13-2025 Consult note [facility] 01-13-2025 Consult note [facility] 01-13-2025 History and physical note Note Date/Time January 13, 2025 8:31am [facility] Medical Records Department [address] [place] [address] History & Physical Exam 01/13/25 0830 MR#: [id number] Acct: [id number] Name: CALEB MASSEY Rep #:[id number] : 1955 69 From: Ganesh hermosillo MD PCP: Dr. Cain Moore MD Status:REG SD C Location: [place] [address]-1 History and Physical Date of Admission: 01/13/25 Intake Vital Signs 12/25/2506:59 Height 5 ft 8 in Weight: 180 lb BMI 27.3 BP 165/75 H Blood Pressure Location Rt brachial Position Sitting Respiration 16 Intake Visit Reasons: UMBILICAL HERNIA Chief Complaint: umbilical hernia Oxygen Therapy Teacher Required: No Is patient in pain?: No Allergies No Known Allergies Allergy (Verified 12/25/24 08:00) Medications ?Medication ?Instructions ?Recorded ?Confirmed ?Type multivitamin with folic acid 400 1 tab PO DAILY 12/11/18 01/04/19 History mcg tablet coenzyme Q10 75 mg capsule (Ultra 75 mg PO QDAY 12/25/24 12/25/24 History CoQ10) lutein 20 mg capsule 20 mg PO QDAY 12/25/24 12/25/24 History magnesium 200 mg tablet 200 mg PO QDAY 12/25/24 12/25/24 History Have you fallen in the past year?: No PFSH Medical History (Updated 12/25/24 @ 07:53 by Alexia Barraza) Left inguinal hernia Umbilical hernia Anxiety Surgical History (Updated 12/25/24 @ 07:58 by Alexia Barraza) Status post surgery Family History (Updated 12/25/24 @ 07:59 by Alexia Barraza) Mother Diabetes CAD (coronary artery disease)Grandfather Diabetes Social History (Updated 12/25/24 @ 07:59 [...] General: cooperative Orientation: alert and oriented x3 HENMT Head: normal to inspection Neck Neck: normal [...] Patient is agreeable. Ganesh Watkins MD Pager: [facility] [address] [place] [address], [address] [place] [address] Office: I have examined the patient and the H&P has been reviewed. There are no clinicalchanges since date of exam. 01/13/25830 <Electronically signed by Ganesh Watkins MD> Cosigner Signature (if applicable): CC: Dr. Ganesh Watkins MD; Dr. Cain Moore MD~ Signed [facility] Work Phone: 1(395) 321-363509-15-2025 Consult note Author Jamel Vazquez [facility] Note Date/Time January 13, 2025 7:54am [facility] Medical Records Department [address] [place] [address] Pre-Anesthesia Evaluation 01/13/25 0753 MR#: [id number] Acct: [id number] Name: CALEB MASSEY Rep #:[id number] : 1955 69 From: Jamel Vazquez MD PCP: Dr. Cain Moore MD Status:REG SD C Y Race: C Location: [place] [address] ASA Classification* ASA Classification ASA Classification: 2 Assessment & Plan Anesthesia* Anesthesia Assessment Anesthesia Assessment: Discussed sedation and/or anesthesia options, risks, benefits, and alternatives with patient/parents/legal guardian/POA. Questions invited. The patient/parents/legal guardian/POA seems to understand and agrees to proceedwith anesthesia plan. Reviewed the physical assessment, medical history, allergy history and patient home medications list prior to surgery/procedure/anesthetic and documented any changes. Performed airway and anesthesia risk assessments. Anesthesia Type Anesthesia Type: General Anesthesia Focused Assessment* Temperature: 98.8 F Pulse Rate: 69 Blood Pressure: 158/82 Respiratory Rate: 16 Pulse Ox: 100 Airway Assessment Mouth opens: >3 cm Mallampati Score: II Labs Anesthesia Preop lab: CBC WBC 6.6 K/mm3 (4.4-11.0) 12/12/24 15:37 12/12/24 RBC 4.49 M/mm3 (4.6-6.2) L 12/12/24 15:37 12/12/24 Hgb 13.8 g/dL (13.0-16.5) 12/12/24 15:37 12/12/24 Hct 41.1 % (40-54) 12/12/24 15:37 12/12/24 Plt Count 266 K/mm3 (150-450) 12/12/24 15:37 12/12/24 CHEMISTRY Potassium 4.3 mmol/L (3.3-5.1) 12/12/24 15:37 12/12/24 Sodium 139 mmol/L (133-145) 12/12/24 15:37 12/12/24 BUN 22 mg/dL (4-19) H 12/12/24 15:37 12/12/24 Creatinine 1.02 mg/dL (0.70-1.20) 12/12/24 15:37 12/12/24 Glucose 94 mg/dL (70-99) 12/12/24 15:37 12/12/24 TSH 2.370 uIU/mL (0.300-4.200) 07/30/24 14:23 04/0 05/25 COAG Pre-Assessment Diagnosis/Proposed Procedure Planned Operative Procedure(s): (L) Lap Robotic Left Inguinal Hernia w/mesh possbilateral & open umbilical hernia Anesthesia History 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 When Was Last Pacemaker Check QUESTION #4 FULL TEXT: You/Your Family Experience fever (hyperthermia) with Anesthesia Last Oral Intake Last Oral intake: Last Oral Intake NPO since 18:00 01/13/25 07:44 Meds taken in AM with sips of No 01/13/25 07:44 water? 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 Female No 12/27/24 14:58 HX of Motion Sickness No 12/27/24 14:58 HX of N/V After Surgery No 12/27/24 14:58 Non-Smoker Yes 12/27/24 14:58 Duration of Surgery greater Yes 12/27/24 14:58 than 60 minutes Number of Risk Factors 2 12/27/24 14:58 PONV Score Moderate Risk 12/27/24 14:58 Height & Weight Height & Weight: Anesthesia: Height & Weight Height 5 ft 4 in 01/13/25 07:44 Weight: 77.5 kg 01/13/25 07:44 Body Mass Index (BMI) 29.3 01/13/25 07:44 Respiratory Assessment Respiratory Assessment - 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: Respiratory Tract Infection Hx - 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 Hx Respiratory Tract Infection No 12/27/24 14:58 STOP Sleep Apnea STOP Sleep Apnea - 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: STOP Sleep Apnea - 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 Hx Hypertension No 12/27/24 14:58 Hx Sleep [...] Tobacco Use History Tobacco Use History - 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: Tobacco Use History - 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 Specify any problems Hx of Preganancy in last 3 N/A 12/27/24 14:58 Months Nurse Filling Out Transfusion MGRIFFITH 12/27/24 14:58 & Questions: Date: 12/27/24 12/27/24 14:58 Time: 15:00 12/27/24 14:58 Patient unable to answer at this time (ie. confused, unrespo /Reproduction History /Reproductive History - 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: /Reproductive Hx- 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 Hx Now No 12/27/24 14:58 Gestational Age (in weeks): EDC: Hx Hx Para Hx Section SAB No 12/27/24 14:58 Active Medications Active Medications: Current Medications Generic Name Dose Route Start Last Admin Trade Name Freq PRN Reason Stop Dose Admin Cefazolin Sodium 2 gm/ Sodium 110 mls @ 200 mls/hr 01/13/25 09:15 Chloride IV 01/13/25 09:47 INTRAOP ONE Lactated Ringer's 1,000 mls @ 15 mls/hr 01/13/25 07:30 IV .Q48H FELICITAS PFSH Medical History Wears glasses Alcohol use Arthritis High cholesterol Restless legs History of diverticulosis Non-smoker Leg cramps History of stress test Left inguinal hernia Umbilical hernia Anxiety Home Medications ?Medication ?Instructions ?Recorded ?Last Taken ?Type multivitamin with folic acid 400 1 tab PO DAILY Unknown History mcg tablet coenzyme Q10 75 mg capsule (Ultra 75 mg PO QDAY 12/25/24 History CoQ10) lutein 20 mg capsule 20 mg PO QDAY 12/25/2412/25 History magnesium 200 mg tablet 200 mg PO QDAY 12/25/2411/30 History Allergy/AdvReac Type Severity Reaction Status Date / Time No Known Allergies Allergy Verified 01/13/25 07:40 Family History Mother Diabetes CAD (coronary artery disease) Grandfather Diabetes Surgical History History of colonoscopy Status post surgery Social History Smoking Status: Never smoker alcohol intake: current Review of Systems (Anesthesia) ROS Narrative System reviewed and no additional complaints, except as documented. 01/13/25 0754 <Electronically signed by Jamel Vazquez MD > Date _ Jamel Vazquez MD Cosigner Signature: Date CC: ~ Signed [facility] Work Phone: 1(159) 944-165809-15-2025 Progress note [facility] Medical Records Department [address] [place] [address] Progress Note 01/13/2549 MR#: [id number] Acct: [id number] Name: CALEB MASSEY Rep #:[id number] : 1955 69 From: Ganesh hermosillo MD PCP: Dr. Cain Moore MD Status:REG SD C Location: [place] [address] Progress Note The patient had inverted T waves on induction with EKG changes. This reversed itself but it was noted before surgery started. At this point we discussed withanesthesia and we think it is in the patient's best interest to stop the procedure and extubate the patient and wake him up and send him for stress test before reattempting surgery. Ganesh Watkins MD Pager: [facility] [address] [place] [address], [address] [place] [address] Office: 01/13/25 0900 Ganesh Watkins MD Cosigner Signature (if applicable): CC: ~ Signed [facility]09-15-2025 History and physical note [facility] Medical Records Department [address] [place] [address] History & Physical Exam 01/13/25829 MR#: [id number] Acct: [id number] Name: CALEB MASSEY Rep #:[id number] : 1955 69 From: Ganesh hermosillo MD PCP: Dr. Cain Moore MD Status:REG SD C Location: [address] History and Physical Date of Admission: 01/13/25 Intake Vital Signs 12/25/2506:59 Height 5 ft 8 in Weight: 180 lb BMI 27.3 BP 165/75 H Blood Pressure Location Rt brachial Position Sitting Respiration 16 Intake Visit Reasons: UMBILICAL HERNIA Chief Complaint: umbilical hernia Oxygen Therapy Teacher Required: No Is patient in pain?: No Allergies No Known Allergies Allergy (Verified 12/25/24 08:00) Medications ?Medication ?Instructions ?Recorded ?Confirmed ?Type multivitamin with folic acid 400 1 tab PO DAILY 12/11/18 01/04/19 History mcg tablet coenzyme Q10 75 mg capsule (Ultra 75 mg PO QDAY 12/25/24 12/25/24 History CoQ10) lutein 20 mg capsule 20 mg PO QDAY 12/25/24 12/25/24 History magnesium 200 mg tablet 200 mg PO QDAY 12/25/24 12/25/24 History Have you fallen in the past year?: No PFSH Medical History (Updated 12/25/24 @ 07:53 by Alexia Barraza) Left inguinal hernia Umbilical hernia Anxiety Surgical History (Updated 12/25/24 @ 07:58 by Alexia Barraza) Status post surgery Family History (Updated 12/25/24 @ 07:59 by Alexia Barraza) Mother Diabetes CAD (coronary artery disease)Grandfather Diabetes Social History (Updated 12/25/24 @ 07:59 [...] cough, No COPD, No asthma, No emphysema andNo wheezing Gastro Gastrointestinal: Yes abdominal pain, No nausea or vomiting, No diarrhea, No constipation, No bloodin stool, No acid reflux, Yes hemorrhoids, No [...] lack of coordination, No loss ofvision, No memoryloss, No numbness, No other visual disturbances, No radicular pain, No restless legs, No sensory deficit, No syncope, No tingling, No tremor(s), No weakness and No other Exam Const General: cooperative Orientation: alert and oriented x3 HENMT Head: normal to inspection Neck Neck: normal [...] feel a small hernia on the right aswell. I discussed robotic assisted laparoscopic left inguinal [...] Patient is agreeable. Ganesh Watkins MD Pager: [facility] [address] [place] [address] [address] [place] [phone] Office: I have examined the patient and the H&P has been reviewed. There are no clinicalchanges since date of exam. 01/13/25 0831 Cosigner Signature (if applicable): CC: Dr. Ganesh Watkins MD; Dr. Cain Moore MD~ Signed [facility]09-15-2025 [facility] Medical Records Department [address] [place], [place] [id number] History Physical Exam 01/13/25 0830 MR#: [id number] Acct: [id number] Name: CALEB MASSEY Rep #: [id number] : 1955 69 From: Ganesh Watkins MD PCP: Dr. Cain Moore MD Status:[facility] Location: [place] [address] History and Physical Date of Admission: 01/13/25 Intake Vital Signs 12/25/2506:59 Height 5 ft 8 in Weight: 180 lb BMI 27.3 BP 165/75 H Blood Pressure Location Rt brachial Position Sitting Respiration 16 Intake Visit Reasons: UMBILICAL HERNIA Chief Complaint: umbilical hernia Oxygen Therapy Teacher Required: No Is patient in pain?: No Allergies No Known Allergies Allergy (Verified 12/25/24 08:00) Medications ???Medication ???Instructions ???Recorded ???Confirmed ???Type multivitamin with folic acid 400 1 tab PO DAILY 12/11/18 01/04/19 History mcg tablet coenzyme Q10 75 mg capsule (Ultra 75 mg PO QDAY 12/25/24 12/25/24 History CoQ10) lutein 20 mg capsule 20 mg PO QDAY 12/25/24 12/25/24 History magnesium 200 mg tablet 200 mg PO QDAY 12/25/24 12/25/24 History Have you fallen in the past year?: No PFSH Medical History (Updated 12/25/24 @ 07:53 by Alexia Barraza) Left inguinal hernia Umbilical hernia Anxiety Surgical History (Updated 12/25/24 @ 07:58 by Alexia Barraza) Status post surgery Family History (Updated 12/25/24 @ 07:59 by Alexia Barraza) Mother Diabetes CAD (coronary artery disease)Grandfather Diabetes Social History (Updated 12/25/24 @ 07:59 [...] General: cooperative Orientation: alert and oriented x3 HENMT Head: normal to inspection Neck Neck: normal [...] the risks including but not limited to bleeding (more content not included)...[facility]09-15-2025 Consult note [facility] Medical Records Department [address] [place] [address] Pre-Anesthesia Evaluation 01/13/25 0753 MR#: [id number] Acct: [id number] Name: CALEB MASSEY Rep #:[id number] : 1955 69 From: Jamel Vazquez MD PCP: Dr. Cain Moore MD Status:REG SD C Y Race: C Location: [place] [address] ASA Classification* ASA Classification ASA Classification: 2 Assessment & Plan Anesthesia* Anesthesia Assessment Anesthesia Assessment: Discussed sedation and/or anesthesia options, risks, benefits, and alternatives with patient/parents/legal guardian/POA. Questions invited. The patient/parents/legal guardian/POA seems to understand and agrees to proceedwith anesthesia plan. Reviewed the physical assessment, medical history, allergy history and patient home medications list prior to surgery/procedure/anesthetic and documented any changes. Performed airway and anesthesia risk assessments. Anesthesia Type Anesthesia Type: General Anesthesia Focused Assessment* Temperature: 98.8 F Pulse Rate: 69 Blood Pressure: 158/82 Respiratory Rate: 16 Pulse Ox: 100 Airway Assessment Mouth opens: >3 cm Mallampati Score: II Labs Anesthesia Preop lab: CBC WBC 6.6 K/mm3 (4.4-11.0) 12/12/24 15:37 12/12/24 RBC 4.49 M/mm3 (4.6-6.2) L 12/12/24 15:37 12/12/24 Hgb 13.8 g/dL (13.0-16.5) 12/12/24 15:37 12/12/24 Hct 41.1 % (40-54) 12/12/24 15:37 12/12/24 Plt Count 266 K/mm3 (150-450) 12/12/24 15:37 12/12/24 CHEMISTRY Potassium 4.3 mmol/L (3.3-5.1) 12/12/24 15:37 12/12/24 Sodium 139 mmol/L (133-145) 12/12/24 15:37 12/12/24 BUN 22 mg/dL (4-19) H 12/12/24 15:37 12/12/24 Creatinine 1.02 mg/dL (0.70-1.20) 12/12/24 15:37 12/12/24 Glucose 94 mg/dL (70-99) 12/12/24 15:37 12/12/24 TSH 2.370 uIU/mL (0.300-4.200) 07/30/24 14:23 04/0 05/25 COAG Pre-Assessment Diagnosis/Proposed Procedure Planned Operative Procedure(s): (L) Lap Robotic Left Inguinal Hernia w/mesh possbilateral & open umbilical hernia Anesthesia History 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 When Was Last Pacemaker Check QUESTION #4 FULL TEXT: You/Your Family Experience fever (hyperthermia) with Anesthesia Last Oral Intake Last Oral intake: Last Oral Intake NPO since 18:00 01/13/25 07:44 Meds taken in AM with sips of No 01/13/25 07:44 water? 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 Female No 12/27/24 14:58 HX of Motion Sickness No 12/27/24 14:58 HX of N/V After Surgery No 12/27/24 14:58 Non-Smoker Yes 12/27/24 14:58 Duration of Surgery greater Yes 12/27/24 14:58 than 60 minutes Number of Risk Factors 2 12/27/24 14:58 PONV Score Moderate Risk 12/27/24 14:58 Height & Weight Height & Weight: Anesthesia: Height & Weight Height 5 ft 4 in 01/13/25 07:44 Weight: 77.5 kg 01/13/25 07:44 Body Mass Index (BMI) 29.3 01/13/25 07:44 Respiratory Assessment Respiratory Assessment - 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: Respiratory Tract Infection Hx - 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 Hx Respiratory Tract Infection No 12/27/24 14:58 STOP Sleep Apnea STOP Sleep Apnea - 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: STOP Sleep Apnea - 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 Hx Hypertension No 12/27/24 14:58 Hx Sleep [...] than talking or can be heard through closeddoors)? 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 Specify any problems Hx of Preganancy in last 3 N/A 12/27/24 14:58 Months Nurse Filling Out Transfusion MGRIFFITH 12/27/24 14:58 & Questions: Date: 12/27/24 12/27/24 14:58 Time: 15:00 12/27/24 14:58 Patient unable to answer at this time (ie. confused, unrespo /Reproduction History /Reproductive History - 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: /Reproductive Hx- 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 Hx Now No 12/27/24 14:58 Gestational Age (in weeks): EDC: Hx Hx Para Hx Section SAB No 12/27/24 14:58 Active Medications Active Medications: Current Medications Generic Name Dose Route Start Last Admin Trade Name Dominik PRN Reason Stop Dose Admin Cefazolin Sodium 2 gm/ Sodium 110 mls @ 200 mls/hr 01/13/25 09:15 Chloride IV 01/13/25 09:47 INTRAOP ONE Lactated Ringer's 1,000 mls @ 15 mls/hr 01/13/25 07:30 IV .Q48H FELICITAS PFSH Medical History Wears glasses Alcohol use Arthritis High cholesterol Restless legs History of diverticulosis Non-smoker Leg cramps History of stress test Left inguinal hernia Umbilical hernia Anxiety Home Medications ?Medication ?Instructions ?Recorded ?Last Taken ?Type multivitamin with folic acid 400 1 tab PO DAILY Unknown History mcg tablet coenzyme Q10 75 mg capsule (Ultra 75 mg PO QDAY 12/25/24 History CoQ10) lutein 20 mg capsule 20 mg PO QDAY 12/25/2412/25 History magnesium 200 mg tablet 200 mg PO QDAY 12/25/2411/30 History Allergy/AdvReac Type Severity Reaction Status Date / Time No Known Allergies Allergy Verified 01/13/25 07:40 Family History Mother Diabetes CAD (coronary artery disease) Grandfather Diabetes Surgical History History of colonoscopy Status post surgery Social History Smoking Status: Never smoker alcohol intake: current Review of Systems (Anesthesia) ROS Narrative System reviewed and no additional complaints, except as documented. 01/13/25 0754 > Date _ Jamel Vazquez MD Cosigner Signature: Date CC: ~ Signed [facility]08-27-2025 Evaluation note* Diagnosis Onset Date Resolution Status Admit Date Left inguinal hernia acute 2024 7:14am Umbilical hernia acute November 302024 7:14am [facility] Work Phone: 1(812) 431-916308-27-2025 Radiology Diagnostic study note [facility] Imaging Services [address] [place], [place] [address] Abdomen/Pelvis WITH Contrast MR#: [id number] Acct: [id number] Name: CALEB MASSEY Rep #: [id number] : 1955 M 69 From: Isidro Kathleen MD PCP: Dr. Cain Moore MD Status: REG CL I Study:Abdomen/Pelvis WITH Contrast Date of Ex am: 12/23/24 Exam# [id number] Ordering Dr: Erinn Moore MD PROCEDURE: ABDOMEN/PELVIS [...] Tiny nonobstructive left intrarenal calculus. Reading Location: [id number] CC: Dr. Cain Moore MD ~ Precision Lens Technician: Signed [facility]08-27-2025 Progress [facility] [address] [place] [address]. [address] [place] [address] OFFICE VISIT Date of Service: 12/25/24 MR#: [id number] Acct: [id number] Name: CALEB MASSEY Rep #: [id number] : 1955 Provider: Dr. Mirtha Watkins MD Age/Sex: 69/M Location: [facility] Status: Signed Intake Vital Signs 12/25/24 07:59 Height 5 ft 8 in Weight: 180 lb BMI 27.3 BP 165/75 H Blood Pressure Location Rt brachial Position Sitting Respiration 16 Intake Visit Reasons: UMBILICAL HERNIA Chief Complaint: umbilical hernia Oxygen Therapy Teacher Required: No Is patient in pain?: No [...] cough, No COPD, No asthma, No emphysema andNo wheezing Gastro Gastrointestinal: Yes abdominal pain, No nausea or vomiting, No diarrhea, No constipation, No bloodin stool, No acid reflux, Yes hemorrhoids, No [...] lack of coordination, No loss ofvision, No memoryloss, No numbness, No other visual disturbances, No radicular pain, No restless legs, No sensory deficit, No syncope, No tingling, No tremor(s), No weakness and No other Exam Const General: cooperative Orientation: alert and oriented x3 HENKS Head: normal to inspection Neck Neck: normal [...] feel a small hernia on the right aswell. I discussed robotic assisted laparoscopic left inguinal [...] Patient is agreeable. Ganesh Watkins MD Pager: [facility] [address] [place] [address], [address] [place] [address] Office: Coding Level of Care Code Off vis,new,level 4 Diagnoses Left inguinal hernia K40.90 Umbilical hernia K42.9 Clinical Quality Measures Falls Risk Screening/Assistive Devices Have you fallen in the past year?: No 12/25/24 0802 radhika BRANTLEY> Date _ Ganesh Watkins MD Cosigner Signature: Date (if applicable) CC: ~ [facility]08-27-2025 Progress note Author Ganesh Watkins [facility] Note Date/Time December 25, 2024 8: 02am [facility] [address] [place] [address] OFFICE VISIT Date of Service: 12/25/24 MR#: [id number] Acct: [id number] Name: CALEB MASSEY Rep #: [id number] : 1955 Provider: Dr. Mirtha Watkins MD Age/Sex: 69/M Location: [facility] Status: Signed Intake Vital Signs 12/25/24 07:59 Height 5 ft 8 in Weight: 180 lb BMI 27.3 BP 165/75 H Blood Pressure Location Rt brachial Position Sitting Respiration 16 Intake Visit Reasons: UMBILICAL HERNIA Chief Complaint: umbilical hernia Oxygen Therapy Teacher Required: No Is patient in pain?: No [...] General: cooperative Orientation: alert and oriented x3 HENKS Head: normal to inspection Neck Neck: normal [...] Patient is agreeable. Ganesh Watkins MD Pager: [facility] [address] [place] [address], [address] [place] [address] Office: Coding Level of Care Code Off vis,new,level 4 Diagnoses Left inguinal hernia K40.90 Umbilical hernia K42.9 Clinical Quality Measures Falls Risk Screening/Assistive Devices Have you fallen in the past year?: No 12/25/24 0802 <Electronically signed by Ganesh garrido MD> Date _ Ganesh Watkins MD Cosigner Signature: Date (if applicable) CC: ~ [facility] [employer] Work Phone: Consult note Author Jamel Vazquez [facility] Note Date/Time January 13, 2025 10:36am [facility] Medical Records Department [address] [place] [id number] Anesthesia Postop Eval I 01/13/25 1032 MR#: [id number] Acct: [id number] Name: CALEB MASSEY Rep #:[id number] : 1955 69 From: Jamel Vazquez MD PCP: Dr. Cain Moore MD Status:REG SD C Y Race: C Location: [place] [address] Anesthesia: Postop Eval I Current Vital Signs Temperature: 97.3 F Pulse Rate: 73 Blood Pressure: 125/82 Respiratory Rate: 16 Pulse Ox: 99 Oxygen Delivery Method: Room Air Assessment Airway patent: Yes Spontaneous unlabored respirations: Yes Mental status: Awake and Calm nausea: No Vomiting: No Anesthesia Complication: Yes Anesthesia Complication Comment:: patient was notedto go into a LBBB and decrease HR in mid 30's after induction per DIETITIAN ASSISTANT and Dr. Watkins. Decision was made to cancel for further evaluation. in recovery patient with normal vs, no cardiac symptoms and normal EKG. patient will have eval. set up per DR. Villa office. Fluid Hydration Crystalloid volume administer (ml): 200 Total IV fluid infused: 200 Progress Note Anesthesia document: Postop Eval 1 completed: Yes 01/13/25 1036 <Electronically signed by Jamel Vazquez MD > Date _ Jamel Vazquez MD Cosigner Signature: Date CC: ~ Signed [facility] Work Phone: Consult note Author Jamel Vazquez [facility] Note Date/Time January 13, 2025 10:45am [facility] Medical Records Department [address] [place] [address] Anesthesia Postop Eval II 01/13/25 1036 MR#: [id number] Acct: [id number] Name: CALEB MASSEY Rep #:[id number] : 1955 69 From: Jamel Vazquez MD PCP: Dr. Cian Moore MD Status:REG SD C Y Race: C Location: [place] [address] Anesthesia Postop Eval I Sum Postop Eval Completion status Anesthesia document: Postop Eval 1 completed: Yes Anesthesia Postop Eval I Summary Anesthesia Postop Eval I Summary: Anesthesia Postop Eval I: Assessment Summary Airway patent Yes 01/13/25 10:36 Spontaneous unlabored Yes 01/13/25 10:36 respirations Mental status Awake,Calm 01/13/25 10:36 nausea No 01/13/25 10:36 Vomiting No 01/13/25 10:36 Anesthesia Postop Eval I: Fluid Summary Crystalloid volume administer 200 01/13/25 10:36 (ml) Colloids volume administered ( ml) Blood Product volume administered (ml) Total IV fluid infused 200 01/13/25 10:36 Anesthesia Postop Eval I: Summary Notes Anesthesia Complication Yes 01/13/25 10:36 Anesthesia Complication patient was noted 01/13/25 10:36 Comment: to go into a LBBB and decrease HR in mid 30's after induction per DIETITIAN ASSISTANT and Dr. Watkins. Decision was made to cancel for further evaluation . in recovery patient with normal vs, no cardiac symptoms and normal EKG. patient will have eval. set up per DR. Villa office. Post-operative progress note Anesthesia: Postop Eval II Evaluation Mental status: Awake and Calm Pain Level: 0 nausea: No Vomiting: No Progress Note Post-operative progress note: see post op 1 note 01/13/25 1036 <Electronically signed by Jamel Vazquez MD > Date _ [facility] Signature: Date CC: ~ Signed [facility] Work Phone: Evaluation noteNo assessment information available [facility] Work Phone: Evaluation note* Diagnosis Onset Date Resolution Status Admit Date Left inguinal hernia acute 2024 7:14am Umbilical hernia acute November 302024 7:14am [facility] Work Phone: Progress note Author Ganesh Watkins [facility] Note Date/Time January 13, 2025 9:50am [facility] Medical Records Department [address] [place] [address] Progress Note 01/13/25 0949 MR#: [id number] Acct: [id number] Name: CALEB MASSEY Rep #:[id number] : 1955 69 From: Ganesh hermosillo MD PCP: Dr. Cain Moore MD Status:REG SD C Location: [place] [address]- Progress Note The patient had inverted T waves on induction with EKG changes. This reversed itself but it was noted before surgery started. At this point we discussed withanesthesia and we think it is in the patient's best interest to stop the procedure and extubate the patient and wake him up and send him for stress test before reattempting surgery. Ganesh Watkins MD Pager: [facility] [address] [place] [address], [address] [place] [address] Office: 01/13/25 4090 <Electronically signed by Ganesh Watkisn MD> Ganesh Watkins MD Cosigner Signature (if applicable): CC: ~ Signed [facility] Work Phone: Reason for referral (narrative)No reason for referral information [facility] Work Phone: Chief Complaint and Reason for Visit Chief Complaint E-ORDER Chief Complaint Admit Date E-ORDER July 30, 2024 2:19 pm Chief Complaint Admit Date UMBILICAL HERNIA December 23, 2024 5: 23pm UMBILICAL HERNIA December 25, 2024 7: 14am Reason for Visit Admit Date Left inguinal hernia December 25, 2024 7 :14am Umbilical hernia December 25, 2024 7: 14am Chief Complaint Admit Date UMBILICAL HERNIA December 23, 2024 5: 23pm UMBILICAL HERNIA December 25, 2024 7: 14am PREOP January 01, 2025 6:40am Lap Robotic Left Inguinal Hernia w/mesh poss bilat January 13, 2025 7:12am Lap Robotic Left Inguinal Hernia w/mesh poss bilat January 13, 2025 8:30am Chief Complaint Admit Date UMBILICAL HERNIA December 23, 2024 5: 23pm UMBILICAL HERNIA December 25, 2024 7: 14am PREOP January 01, 2025 6:40am Lap Robotic Left Inguinal Hernia w/mesh poss bilat January 13, 2025 7:12am Lap Robotic Left Inguinal Hernia w/mesh poss bilat January 13, 2025 8:30am EKG CHANGES January 13, 2025 10:03am ABN EKG (CALABRETTA) February 05, 2025 9 :01am Advance Directives No Advanced Directives Records Found Advance Directive Response Recorded Date/ Time Living Will No December 12 9 8:25am Power of Development Trainer No December 12 019 8:25am Advance Directive Response Recorded Date/ Time Living Will No December 12 7:25am Power of Development Trainer No December 12 019 7:25am Advance Directive Response Recorded Date/ Time Do you have a Healthcare Power of Development Trainer? No December 27, 2024 2:58pm Family History No Family History Records Found Relationship Condition Age at Onset Recorded Date/T sunitha mother Diabetes mellitus Unknown Coronary artery disease Unknown grandfather Diabetes mellitus Unknown Relationship Condition Age at Onset Recorded Date/T sunitha mother Diabetes mellitus Unknown Coronary artery disease Unknown grandfather Diabetes mellitus Unknown father Parkinson's disease Unknown Summary Purpose Additional Source Comments Care Teams (unrecognized sec tion and content) Team Status: Active Member Role Status Dates Dr. Juliet Woods MD Family Provider Active Dr. Juliet Woods MD Primary Care Provider Active Team Status: Inactive Member Role Status Dates Dr. Julite Woods MD Primary Care Prov ider, Attending Provider, Referring Provider Active Team Status: Inactive Member Role Status Dates Dr. Juliet Woods MD Primary Care Provider, Attendin g Provider Active Team Status: Inactive Member Role Status Dates Dr. Juliet oWods MD Primary Care Provider Active Start: July [...] Active Start : December 23, 2024 Cain Moore MD Referring Provider Active Start : December 23, 2024 Team Status: Inactive Member Role/Relationship Status Brenda Moore MD Primary Care Provider Active St art: December 25, 2024 End: December 25, 2024 Cain Moore MD Referring Provider Active Start : December 25, 2024 End: December 25, 2024 Dr. Ganesh Watkins MD Attending Provider Active Start: December 25, 2024 End: December 25, 2024 Team Status: Inactive Member Role/Relationship Status Brenda Moore MD Primary Care Provider Active St art: December 23, 2024 End: December 23, 2024 Cain Moore MD Attending Provider Active Start : December 23, 2024 End: December 23, 2024 Cain Moore MD Referring Provider Active Start : December 23, 2024 End: December 23, 2024 Team Status: Active Member Role/Relationship Status Brenda Moore MD Primary Care Provider Active St art: January 01, 2025 Dr. Caleb Alvarado MD Attending Provider Active Start: January 01, 2025 Dr. Ganesh Watkins MD Referring Provider Active Start: January 01, 2025 Team Status: Inactive Member Role/Relationship Status Brenda Moore MD Primary Care Provider Active St art: January 13, 2025 End: January 13, 2025 Dr. Ganesh Watkins MD Attending Provider Active Start: January 13, 2025 End: January 13, 2025 Dr. Ganesh Watkins MD Referring Provider Active Start: January 13, 2025 End: January 13, 2025 Team Status: Active Member Role/Relationship Status Brenda Moore MD Primary Care Provider Active St art: January 13, 2025 Dr. Ganesh Watkins MD Attending Provider Active Start: January 13, 2025 Dr. Ganesh Watkins MD Referring Provider Active Start: January 13, 2025 Dr. Ganesh Watkins MD Other Provider Active Start: January 13, 2025 Team Status: Active Member Role/Relationship Status Brenda Moore MD Primary care physician Active Team Status: Inactive Member Role/Relationship Status Brenda Moore MD Attending physician Active Star t: December 12, 2024 End: December 12, 2024 Team Status: Inactive Member Role/Relationship Status Brenda Moore MD Primary care physician Active S tart: December 23, 2024 End: December 23, 2024 Cain Moore MD Attending physician Active Star t: December 23, 2024 End: December 23, 2024 Cain Moore MD Referring Provider Active Start : December 23, 2024 End: December 23, 2024 Team Status: Inactive Member Role/Relationship Status Brenda Moore MD Primary care physician Active S tart: December 25, 2024 End: December 25, 2024 Cain Moore MD Referring Provider Active Start : December 25, 2024 End: December 25, 2024 Dr. Ganesh Watkins MD Attending physician Active Start: December 25, 2024 End: December 25, 2024 Team Status: Active Member Role/Relationship Status Brenda Moore MD Primary care physician Active S tart: January 01, 2025 Dr. Caleb Alvarado MD Attending physician Active Start: January 01, 2025 Dr. Ganesh Watkins MD Referring Provider Active Start: January 01, 2025 Team Status: Inactive Member Role/Relationship Status Brenda Moore MD Primary care physician Active S tart: January 13, 2025 End: January 13, 2025 Dr. Ganesh Watkins MD Attending physician Active Start: January 13, 2025 End: January 13, 2025 Dr. Ganesh Watkins MD Referring Provider Active Start: January 13, 2025 End: January 13, 2025 Team Status: Active Member Role/Relationship Status Brenda Moore MD Primary care physician Active S tart: January 13, 2025 Dr. Ganesh Watkins MD Attending physician Active Start: January 13, 2025 Dr. Ganesh Watkins MD Referring Provider Active Start: January 13, 2025 Dr. Ganesh Watkins MD Nurse Practitioner Active Start: January 13, 2025 Team Status: Active Member Role/Relationship Status Brenda Moore MD Primary care physician Active S tart: January 13, 2025 Dr. Caleb Alvarado MD Attending physician Active Start: January 13, 2025 Dr. Ganesh Watkins MD Referring Provider Active Start: January 13, 2025 Team Status: Inactive Member Role/Relationship Status Brenda Moore MD Primary care physician Active S tart: February 05, 2025 End: February 05, 2025 Cain Moore MD Referring Provider Active Start : February 05, 2025 End: February 05, 2025 Dr. Samy Franks MD Attending physician Active Start: February 05, 2025 End: February 05, 2025 Goals (unrecognized section and content) Goals may [...] ized section and content) DATE CREATED AUTHOR 03/13/2025 [facility] FOR RECORDS PERTAINING TO PATIENTS WHO [...] BE BASED ON THE PRIMARY CLINICAL RECORDS. [employer] provides no warranty or guarantee of the accuracy or completeness of information in this document.
[2025-03-24] MEDS: Lactated Ringers 1,000 ML 15 ML IV ×2 (08:20→11:03)
--- NOTE | 2025-03-24 08:28 | PCM.PRE.AN2 ---
ASA Classification* ASA Classification ASA Classification: 2 Assessment & Plan Anesthesia* Anesthesia Assessment Anesthesia Assessment: Discussed sedation and/or anesthesia options, risks, benefits, and alternatives with patient/parents/legal guardian/POA. Questions invited. The patient/parents/legal guardian/POA seems to understand and agrees to proceed with anesthesia plan. Reviewed the physical assessment, medical history, allergy history and patient home medications list prior to surgery/procedure/anesthetic and documented any changes. Performed airway and anesthesia risk assessments. Patient surgery was previously cancelled for abnormal EKG finding, but EKG evaluated by Dr. Franks showed NSR with leftward axis. On 01/13/25: patient was noted to go into a LBBB and decrease HR in mid 30's after induction per CLIENT DEVELOPMENT MANAGER and Dr. Watkins. Decision was made to cancel for further evaluation. in recovery patient with normal vs, no cardiac symptoms and normal EKG. patient will have eval. set up per DR. Villa office. Anesthesia Type Anesthesia Type: General History Source History Obtained from:: Patient and Chart Anesthesia Focused Assessment* Temperature: 98 F Pulse Rate: 69 Blood Pressure: 135/70 Respiratory Rate: 16 Pulse Ox: 98 Oxygen Delivery Method: Room Air Airway Assessment Mouth opens: >3 cm Mallampati Score: II Neck Range of motion (ROM): Full ROM Labs Anesthesia Preop lab: CBC WBC, (4.4-11.0) 6.6 K/mm3 12/12/24, 15:37 RBC, (4.6-6.2) 4.49 M/mm3 L 12/12/24, 15:37 Hgb, (13.0-16.5) 13.8 g/dL 12/12/24, 15:37 Hct, (40-54) 41.1 % 12/12/24, 15:37 Plt Count, (150-450) 266 K/mm3 12/12/24, 15:37 CHEMISTRY Potassium, (3.3-5.1) 4.3 mmol/L 12/12/24, 15:37 Sodium, (133-145) 139 mmol/L 12/12/24, 15:37 BUN, (4-19) 22 mg/dL H 12/12/24, 15:37 Creatinine, (0.70-1.20) 1.02 mg/dL 12/12/24, 15:37 Glucose, (70-99) 94 mg/dL 12/12/24, 15:37 TSH, (0.300-4.200) 2.370 uIU/mL 07/30/24, 14:23 COAG Pre-Assessment Diagnosis/Proposed Procedure Planned Operative Procedure(s): LARAROSCOPIC ROBOTIC INGUINAL HERNIA WITH MESH POSS BILATERAL, OPEN UMBILICAL HERNIA WITH POSSIBLE MESH Anesthesia History 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 When Was Last Pacemaker Check QUESTION #4 FULL TEXT: You/Your Family Experience fever (hyperthermia) with Anesthesia Last Oral Intake Last Oral intake: Last Oral Intake NPO since Meds taken in AM with sips of No 03/24/25 07:58 water? Meds patient instructed to take am of surgery PONV PONV - receiving barn custodian: PONV - receiving barn custodian Female No 03/18/25 11:06 HX of Motion Sickness No 03/18/25 11:06 HX of N/V After Surgery No 03/18/25 11:06 Non-Smoker Yes 03/18/25 11:06 Duration of Surgery greater Yes 03/18/25 11:06 than 60 minutes Number of Risk Factors 2 03/18/25 11:06 PONV Score Moderate Risk 03/18/25 11:06 Height & Weight Height & Weight: Anesthesia: Height & Weight Height 5 ft 8.11 in 03/24/25 07:58 Weight: 73.1 kg 03/24/25 07:58 Body Mass Index (BMI) 24.4 03/24/25 07:58 Respiratory Assessment Respiratory Assessment - receiving barn custodian: Respiratory Tract Infection Hx - receiving barn custodian Hx Respiratory Tract Infection No 03/18/25 11:06 STOP Sleep Apnea STOP Sleep Apnea - receiving barn custodian: STOP Sleep Apnea - receiving barn custodian Hx Hypertension No 03/18/25 11:06 Hx Sleep Apnea No 03/18/25 11:06 CPAP BIPAP Do you snore loudly (louder No 03/18/25 11:06 than talking or can be heard Do you often feel tired/ No 03/18/25 11:06 fatigued/ sleepy during daytime? Has anyone observed you stop No 03/18/25 11:06 breathing during sleep? STOP Results Negative 03/18/25 11:06 QUESTION #5 FULL TEXT : Do you snore loudly (louder than talking or can be heard through closed doors)? 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 Specify any problems Hx of Preganancy in last 3 N/A 03/18/25 11:06 Months Nurse Filling Out Transfusion [email or web address] 03/18/25 11:06 & Questions: Date: 03/18/25 03/18/25 11:06 Time: 11:07 03/18/25 11:06 Patient unable to answer at this time (ie. confused, unrespo /Reproduction History /Reproductive History - receiving barn custodian: /Reproductive Hx- receiving barn custodian Hx Now No 03/18/25 11:06 Gestational Age (in weeks): EDC: Hx Hx Para Hx Section SAB No 03/18/25 11:06 Does the father of the baby or his family experience fever w Father of the baby Malignant Hypertension history comment Active Medications Active Medications: Current Medications Generic Name Dose Route Start Last Admin Trade Name Freq PRN Reason Stop Dose Admin Lactated Ringer's 1,000 mls @ 15 mls/hr 03/24/25 07:45 03/24/25 08:20 IV 15 mls/hr .Q48H FELICITAS Administration PFSH Medical History (Updated 03/18/25 @ 11:10 by Butch Saldana) Cardiology follow-up encounter History of echocardiogram Pure hypercholesterolemia, unspecified Pre-operative clearance Abnormal EKG Alcohol use Arthritis High cholesterol Restless legs History of diverticulosis Leg cramps Left inguinal hernia Umbilical hernia Anxiety Home Medications ?Medication ?Instructions ?Recorded ?Last Taken ?Type coenzyme Q10 75 mg capsule (Ultra 100 mg PO QDAY 02/05/25 03/23/25 History CoQ10) lutein 6 mg capsule 2 mg PO QDAY 02/05/25 03/23/25 History magnesium 200 mg tablet 300 mg PO QDAY 02/05/25 03/23/25 History tumeric 1 dose PO DAILY 02/05/25 Unknown History Lactobacillus acidophilus 10 10,000 mmu cells PO QDAY 03/18/25 03/23/25 History billion cell capsule (NewFlora) Allergy/AdvReac Type Severity Reaction Status Date / Time cat dander Allergy Mild Other Verified 03/18/25 11:03 Environmental Allergies: Allergy Mild Other Verified 03/18/25 11:03 Uncoded (hay fever) Family History Mother Diabetes CAD (coronary artery disease) Grandfather Diabetes Father Parkinsons disease Surgical History History of colonoscopy Status post surgery Social History Smoking Status: Never smoker alcohol intake: current Review of Systems (Anesthesia) ROS Narrative System reviewed and no additional complaints, except as documented. Physical Exam Const alert, oriented x3 and average body habitus Resp normal respiratory effort, normal air movement and clear to auscultation bilaterally Cardio regular rate, regular rhythm and no murmurs; Negative for diaphoretic
--- NOTE | 2025-03-24 08:31 | PCM.HP.BLA ---
History and Physical Date of Admission: 03/24/25 Intake Vital Signs 02/05/2509:28 03/12/2507:30 Height 5 ft 4 in 5 ft 8 in Weight: 167 lb 6 oz BMI 25.4 BP 153/75 H Blood Pressure Location Rt brachial Position Sitting Respiration 18 Pulse 71 Pulse Source Monitor Temp 97.6 F L Temp Source Temporal Pulse Oximetry (%) 98 Oxygen Delivery Method room air Intake Visit Reasons: UPDATE H&P- HERNIA TC Chief Complaint: update H&P- hernia TC Is patient in pain?: No Allergies cat dander Allergy (Mild, Verified 03/12/25 07:32) Other Environmental Allergies: Uncoded (hay fever) Allergy (Mild, Verified 03/12/25 07:32) Other Have you fallen in the past year?: No PFSH Medical History Pure hypercholesterolemia, unspecified Pre-operative clearance Abnormal EKG Alcohol use Arthritis High cholesterol Restless legs History of diverticulosis Leg cramps Left inguinal hernia Umbilical hernia Anxiety Surgical History History of colonoscopy Status post surgery Family History Mother Diabetes CAD (coronary artery disease) Grandfather Diabetes Father Parkinsons disease Social History Smoking Status: Never smoker alcohol intake: current HPI HPI Surgical H&P: Yes HPI: Patient is a 69 y/o M I am seeing for an update history and physical for an upcoming elective left inguinal hernia repair and umbilical hernia repair with Dr. Watkins. Patient was scheduled and had a completed EKG. The day of surgery patient had EKG changes on the monitor and it was decided to abort the procedure in December. Patient was evaluated by cardiology and had an ECHO completed which was overall unremarkable with a normal ejection fraction. Cardiology cleared the patient and deemed him low risk for surgery. Patient denies any current chest pain or shortness of breath. He denies previous myocardial infarction, stroke or blood clots. He is not on a blood thinner currently. He denies any previous complications or side effects with anesthesia. Patient does note difficulty with constipation relating to the hernia. he state she has placed himself on milk of magnesia every other day to assist with bowel movements. Patient's previous history per Dr. Watkins: Patient is a 69-year-old male who comes in with a left inguinal hernia as well as an umbilical hernia. He reports that sneezing or coughing hurts his left groin. He does not have any symptoms from the umbilical hernia. ROS General General: No weight change, appetite, fatigue, colon cancer, breast cancer or weakness HEENT HEENT: No difficulty swallowing, eye injury, eye surgery, swollen glands or hoarseness Endo Endocrine: No thyroid disease, diabetes mellitus, thyroid cancer, Hair loss, heat intolerance or cold intolerance Skin Skin: No rash or changing moles Breast Breast: No left breast lump, right breast lump, nipple discharge, breast pain, abnormal mammogram, abnormal US or breast enlargement Musc Musculoskeletal: No back problems, arthritis, rheumatoid arthritis, gout or joint pain Cardio Cardiovascular: No murmur, pacemaker, heart disease, atrial fibrillation, high blood pressure, heart attack, heart stent, palpitations, shortness of breath with exertion or chest pain Psych Psychiatric: Yes anxiety; No depression or hearing voices Resp Respiratory: No shortness of breath, No sleep apnea, No cough, No COPD, No asthma, No emphysema and No wheezing Gastro Gastrointestinal: Yes abdominal pain, No nausea or vomiting, No diarrhea, No constipation, No blood in stool, No acid reflux, Yes hemorrhoids, No ulcers, No gallbladder problem and No black,tarry stools Ramirez Hematologic: No blood thinners, No blood disorders, No bleeding, No anemia and No blood clots Neuro Neurologic: No system reviewed and no additional complaints, except as documented, No as per HPI, No abnormal gait, No abnormal hearing, No abnormal movements, No abnormal speech, No behavioral changes, No burning sensations, No confusion, No convulsions, No disequilibrium, No dizziness, No localized weakness, No frequent falls, No headache(s), No lack of coordination, No loss of vision, No memory loss, No numbness, No other visual disturbances, No radicular pain, No restless legs, No sensory deficit, No syncope, No tingling, No tremor(s), No weakness and No other Exam Const General: cooperative, healthy appearing and comfortable [facility] Head: normal to inspection Eyes General: appearance normal, both eyes and all related structures Neck Neck: normal visual inspection Neck mass: No Resp Effort & Inspection: normal respiratory effort Auscultation: clear to auscultation bilaterally Cardio Rate: regular rate Rhythm: regular rhythm GI Palpation: soft and hernia (left inguinal and small umbilical hernia) Auscultation: normal bowel sounds Musc Cervical Spine: normal cervical lordosis Skin General: no rashes or lesions noted Neuro General: no focal motor deficits and CN's II-XI intact bilaterally Extrem General: normal to inspection Psych Appearance: grossly normal Affect: normal affect Assessment and Plan Assessment and Plan (1) Left inguinal hernia: Status: Acute (2) Umbilical hernia: Status: Acute Qualifiers: Obstruction and gangrene presence: without obstruction or gangrene Qualified Code(s): K42.9 - Umbilical hernia without obstruction or gangrene Plan Dr. Watkins will plan to perform a robotic assisted laparoscopic left inguinal hernia possible right inguinal hernia repair with mesh and simple umbilical hernia repair without mesh. Procedure details, risks and benefits were reviewed. Post-operative recovery expectations were also reviewed. Return to work letter was provided to the patient prior to leaving our office. Patient has had the opportunity to ask and have questions answered. Patient verbally understands and agrees with the plan. Patient has been deemed low risk according to Dr. Madrigal's assessment on 02/05/25. I have examined the patient and the H&P has been reviewed. There are no clinical changes since date of exam.
--- NOTE | 2025-03-24 09:15 | HERN_PTH ---
PATIENT: CALEB MASSEY LOC: [facility] [place] U[place][id number] AGE/SX: 69/M ROOM: RE03/24/[address]: Dr. Ganesh Watkins MD : 1955 BED: DIS: 03/24/2025 SPEC #: [id number] RECD: 03/24/25 10:41 STATUS: CHARISMA REOtoniel #: [id number] RENAE: 03/24/25 09:[address]: Ganesh Watkins DEPT: SURGICAL PATHOLOGY RECD BY: Florentino Serrano ENTERED: 03/25/25 08:56 SP TYPE: Hernia OTHR DR: Cain Moore MD Tissues: A - HERNIA Procedures: Surgery Specimen Level II HEADER OPERATION: Laparoscopic robotic inguinal hernia with mesh, open umbilical possible mesh PRE-OP DIAGNOSIS: Left inguinal hernia, umbilical hernia TISSUE SUBMITTED: A- Hernia sac - umbilical MICROSCOPIC DIAGNOSIS A. Soft tissue, umbilical hernia repair: * Benign fibroadipose tissue consistent with hernia sac MICROSCOPIC DESCRIPTION Slides are reviewed. GROSS DESCRIPTION A. Received in formalin labeled with the patient's name and date of . Designated as hernia sac umbilical is a 2.4 x 1.7 x 0.7 cm portion of maya-yellow focally cauterized, lobulated soft tissue. Sectioning reveals focally fibrotic cut surfaces. Refinery Operator Alkylation sections are submitted in 1 cassette. PR [id number]
[2025-03-24] MEDS: Lidocaine 1% (5 ml sdv) 5 ML Vial IV (09:17)
[2025-03-24] MEDS: Midazolam 2 MG/2 ML Syringe IV (09:17)
[2025-03-24] MEDS: Cefazolin 1 GM/5 ML Vial 2 GM IV (09:17)
[2025-03-24] MEDS: fentaNYL 100 MCG/2 ML Ampul IV (09:35)
--- NOTE | 2025-03-24 10:20 | OP.PCM_ITS ---
Operative Report (Standard) Operative Information Date of Procedure: 03/24/25 Pre-Operative Diagnosis: Left inguinal hernia, umbilical hernia Post-Operative Diagnosis: Same Surgery/Procedure Performed: Robotic assisted laparoscopic left inguinal hernia repair with mesh Umbilical hernia repair less than 3 cm janitor custodian: Yes Hasher Operator: Keysha Carrera Tasks completed by first aid teacher: Opening & closing Type of Anesthesia: General/Regional RN Documented Start/Stop Times: Operation Date: 03/24/25 09:15 Case Time Into Pre-Op 03/24/25 07:33 Out of Pre-Op 03/24/25 09:08 Anesthesia Start 03/24/25 09:12 Into Room 03/24/25 09:12 Procedure Start 03/24/25 09:31 Procedure Start Time: : Procedure Stop Time: 10:28 Select all DRAINS/GRAFTS/IMPLANTS that apply: Implanted device Implanted device details: ProGrip mesh Estimated Blood Loss: 5 Specimen collected: Yes Description of specimen(s) removed: Hernia sac Description of surgery: Patient was brought back to the operating room and general anesthesia was induced. The abdomen was prepped and draped in usual sterile fashion. A curvilinear incision was marked and made over the umbilicus electrocautery was used to maintain hemostasis. The umbilical stalk was dissected free from the hernia sac. The hernia sac was excised and removed. A port was placed through the small umbilical hernia. The abdomen was insufflated 15 mmHg. Patient was placed in steep Trendelenburg position. Under direct visualization an 8 mm port was placed in the right and left lateral abdomen sidewall and then the robot was docked. Using electrocautery scissors the left lower quadrant peritoneum was incised. Dissection was carried inferiorly. A lipoma was reduced as well as th e hernia sac. Next a piece of ProGrip mesh was placed over the inguinal defect and unfolded. Next the peritoneum was reapproximated using a running 3 oh V-Loc suture completely covering the mesh. The abdomen was allowed to desufflate and the instruments and ports were removed. The umbilical hernia was closed with a [id number] 0 Vicryl suture. Next the skin incisions were injected with lo brady anesthetic and reapproximated with interrupted 4-0 Monocryl sutures. Steri- Strips and bandages were applied. Scrotum was checked at the end of the case and contained both testicles. Patient was awoken and taken to PACU in stable condition and tolerated the procedure well. Surgical Findings: Left inguinal hernia, umbilical hernia less than 3 cm Complications Complications: No Admit VTE Documentation VTE Mechan Device Prophylaxis: SCD's
--- NOTE | 2025-03-24 10:24 | EX.PCM.DISCH ---
Discharge Instructions Procedure Hernia Diet Discharge Diet: Light diet - advance as tolerated Activity Discharge Activity: May Not Drive (for 2-3 days or while taking narcotic pain meds.) and May Shower (with the bandage in place 1-2 days after surgery.) Lifting Restrictions: 20 pounds for 4 weeks. Additional Activity Instructions:: Climbing stairs is fine, walking is encouraged. Sitting in bed may be uncomfortable. Sitting up using your lateral muscles (sitting up sideways) is usually more comfortable. Do not drive, work heavy equipment of sign legal documents for 24 hours. If your hernia repair was an ingunial repair, you may have scrotal swelling, an ice pack and/or athletic support can provide more comfort. Pain medications may cause nausea, you should typically eat light foods as you take your pain medications. Pain medications may also cause constipation. If you have difficulty with this, discuss with your doctor. Alternate ibuprofen and Tylenol for pain control, oxycodone for breakthrough pain Dressing / Incision Call your doctor if your incision/area has: Continuous Slow Oozing, Sudden Increased Bleeding, Increased Pain/ Swelling, Increased Redness and Foul Smelling Discharge Call your doctor if you observe: Fever of 101 or Higher Suture Line Care: Avoid Pulling/Pushing and Avoid Pinching/Bending Remove Dressing in: 2 days (Remove clear bandages in 2 days, remove Steri-Strips in 7 to 10 days.) Follow Up Care Please Follow Up With: Ganesh Watkins MD When: Please call to schedule 2 week follow up appointment. [phone] Test Results: Test results from this visit will be discussed in further detail at your follow-up appointment, if applicable. Discharge Plan Admission Attending Provider: Ganesh Watkins Primary Care Provider: Cain Moore Instructions Print Language: Indonesian Discharge Orders/Prescriptions Prescriptions: New oxycodone 5 mg Tablet 5 - 10 mg PO Q4H PRN PRN (Reason: Pain Score 4-10) 5 Days Qty: 14 0RF No Action magnesium 200 mg tablet 300 mg PO QDAY Patient Comments: PT STOPPED FOR UPCOMING SURGERY Ultra CoQ10 75 mg capsule 100 mg PO QDAY Patient Comments: PT STOPPED FOR UPCOMING SURGERY tumeric 1 dose PO DAILY lutein 6 mg capsule 2 mg PO QDAY Rx Instructions: give with meal/snack NewFlora 10 billion cell capsule 10,000 mmu cells PO QDAY Referrals / Follow Up: Cain Moore MD [Primary Care Provider, Family Practice] Disposition Disposition (needs filled in before D/C Order can be placed): Home, Self Care
--- NOTE | 2025-03-24 10:38 | PCM.POST.ANE ---
Anesthesia: Postop Eval I Current Vital Signs Temperature: 98.1 F Pulse Rate: 80 Blood Pressure: 136/61 Respiratory Rate: 20 Pulse Ox: 97 Oxygen Delivery Method: Room Air Assessment Airway patent: Yes Spontaneous unlabored respirations: Yes Mental status: Asleep nausea: No Vomiting: No Anesthesia Complication: No Fluid Hydration Crystalloid volume administer (ml): 800 Total IV fluid infused: 800 Progress Note Anesthesia document: Postop Eval 1 completed: Yes
--- NOTE | 2025-03-24 16:43 | POSTOPAN2_ITS ---
Anesthesia Postop Eval I Sum Postop Eval Completion status Anesthesia document: Postop Eval 1 completed: Yes Anesthesia Postop Eval I Summary Anesthesia Postop Eval I Summary: Anesthesia Postop Eval I: Assessment Summary Airway patent Yes 03/24/25 10:39 SUPERINTENDENT STATIONS.JDEF Spontaneous unlabored Yes 03/24/25 10:39 SUPERINTENDENT STATIONS.JDEF respirations Mental status Asleep 03/24/25 10:39 SUPERINTENDENT STATIONS.JDEF nausea No 03/24/25 10:39 SUPERINTENDENT STATIONS.JDEF Vomiting No 03/24/25 10:39 SUPERINTENDENT STATIONS.JDEF Anesthesia Postop Eval I: Fluid Summary Crystalloid volume administer 800 03/24/25 10:39 SUPERINTENDENT STATIONS.JDEF (ml) Colloids volume administered ( ml) Blood Product volume administered (ml) Total IV fluid infused 800 03/24/25 10:39 SUPERINTENDENT STATIONS.JDEF Anesthesia Postop Eval I: Summary Notes Anesthesia Complication No 03/24/25 10:39 SUPERINTENDENT STATIONS.JDEF Anesthesia Complication Comment: Post-operative progress note Anesthesia: Postop Eval II Evaluation Mental status: Awake Pain Level: 0 nausea: No Vomiting: No Complications Anesthesia Complication: No
--- NOTE | 2025-03-24 16:43 | PCM.POSTANE2 ---
Anesthesia Postop Eval I Sum Postop Eval Completion status Anesthesia document: Postop Eval 1 completed: Yes Anesthesia Postop Eval I Summary Anesthesia Postop Eval I Summary: Anesthesia Postop Eval I: Assessment Summary Airway patent Yes 03/24/25 10:39 DIAGNOSTIC ASSISTANT.JDEF Spontaneous unlabored Yes 03/24/25 10:39 DIAGNOSTIC ASSISTANT.JDEF respirations Mental status Asleep 03/24/25 10:39 DIAGNOSTIC ASSISTANT.JDEF nausea No 03/24/25 10:39 DIAGNOSTIC ASSISTANT.JDEF Vomiting No 03/24/25 10:39 DIAGNOSTIC ASSISTANT.JDEF Anesthesia Postop Eval I: Fluid Summary Crystalloid volume administer 800 03/24/25 10:39 DIAGNOSTIC ASSISTANT.JDEF (ml) Colloids volume administered ( ml) Blood Product volume administered (ml) Total IV fluid infused 800 03/24/25 10:39 DIAGNOSTIC ASSISTANT.JDEF Anesthesia Postop Eval I: Summary Notes Anesthesia Complication No 03/24/25 10:39 DIAGNOSTIC ASSISTANT.JDEF Anesthesia Complication Comment: Post-operative progress note Anesthesia: Postop Eval II Evaluation Mental status: Awake Pain Level: 0 nausea: No Vomiting: No Complications Anesthesia Complication: No
== END 2025-03-24 12:58 | disposition home or self-care (01) ==
LOC: SDC 07:14 → AC 07:15
PROVIDERS: PCP Family Medicine; Referring Provider Surgery; Visit Provider Surgery
PROC: 0YQ64ZZ Repair Left Inguinal Region, Percutaneous Endoscopic Approach (ICD-10-PCS; CPT 49650; principal; 2025-03-24 08:55)
DX: K40.40 Unilateral inguinal hernia, with gangrene, not specified as recurrent (principal); K42.9 Umbilical hernia without obstruction or gangrene; E78.00 Pure hypercholesterolemia, unspecified
CPT/HCPCS: 49650; S2900; 00830; 88302; C1781; J2405